=== PATIENT | male | born 1970 | race Caucasian/White ===

== ENCOUNTER → 2018-07-14 09:22 | Outpatient (CLI) | payer OTHER, SELFPAY ==
--- NOTE | 2018-07-14 09:27 | US_ITS ---
US abdomen limited History:Right upper quadrant pain Ordering Physician:Yu Araiza Patient Age: 48 years Comparison:None Findings: Pancreas:Unremarkable. No obvious mass or abnormal fluid collection. No ductal dilatation Liver:There is diffuse increased echogenicity of the liver with poor through transmission of sound consistent with fatty liver. Right Kidney:Unremarkable. Normal size and echogenicity. No hydronephrosis Gallbladder:No gallstones, gallbladder wall thickening, pericholecystic fluid, or biliary dilatation. Impression: 1. Fatty liver. 2. Otherwise negative right upper quadrant ultrasound
== END ==
PROVIDERS: PCP Nurse Practitioner Family; Visit Provider Nurse Practitioner Family
DX: R10.11 Right upper quadrant pain (principal)
CPT/HCPCS: 76705

== ENCOUNTER → 2018-10-15 09:53 | Outpatient (CLI) | payer OTHER, SELFPAY ==
--- NOTE | 2018-10-15 09:59 | NM_ITS ---
Hepatobiliary HEPATOBILIARY SCAN WITH CCK: HISTORY: Right upper quadrant pain and nausea Following 8.19 mCi millicuries Tc Choletec, images of the right upper quadrant were obtained. There is prompt uptake of radionuclide by the liver which is grossly unremarkable. Small bowel is visualized. At 20 minutes This initial pre-CCK portion of the study is normal. The gallbladder was allowed to fill out to 50 to 60 minutes which point 2.6 MCG micrograms CCK was administered by way infusion pump in the typical fashion over 30 minutes.. This results in 78% percent fraction (normal greater than 50%; borderline 35-50%). Visual inspection supports normal/robust contraction of gallbladder following CCK as well . Patient mention no pain with CCK administration. IMPRESSION: Normal functioning gallbladder . 78% ejection fraction following CCK. No pain reported
== END ==
PROVIDERS: PCP Nurse Practitioner; Visit Provider Nurse Practitioner
DX: R10.9 Unspecified abdominal pain (principal)
CPT/HCPCS: 78227; A9537; J2805

== ENCOUNTER → 2019-12-21 10:32 | Outpatient (CLI) | payer OTHER, SELFPAY ==
--- NOTE | 2019-12-21 10:42 | XR_ITS ---
PROCEDURE: XR SHOULDER RT MIN 2V CLINICAL INDICATION: RT SHOULDER PAIN COMPARISON: No exams were available for comparison FINDINGS: No fracture or dislocation. No lytic or blastic change. There is normal mineralization. The joint spaces are well-preserved. No significant degenerative/arthritic changes. No erosive changes evident. Other findings:None. IMPRESSION: No acute findings. Dictated by: Isaiah Delacruz MD 12/21/2019 14:19 Electronically signed by Isaiah Delacruz MD in [place] 12/21/2019 14:19
--- NOTE | 2019-12-21 10:42 | XR_ITS ---
PROCEDURE: XR CERVICAL SPINE 4V CLINICAL INDICATION: NUMBNESS OF UPPER EXTREMITY Right hand numbness and shoulder pain COMPARISON: No exams were available for comparison FINDINGS: There is normal alignment. There is some decrease in the disc space at C3-C4 C4-C5 C5-C6 and C6-C7. There is 2 mm anterolisthesis of C4 on C5. No acute fracture or dislocation. No lytic or blastic change. IMPRESSION: Mild cervical spondylosis, no acute finding Dictated by: Isaiah Delacruz MD 12/21/2019 14:21 Electronically signed by Isaiah Delacruz MD in [place] 12/21/2019 14:21
== END ==
PROVIDERS: PCP Nurse Practitioner Family; Visit Provider Nurse Practitioner Family
DX: M25.511 Pain in right shoulder (principal); R20.0 Anesthesia of skin
CPT/HCPCS: 72050; 73030

== ENCOUNTER → 2020-04-27 09:50 | Outpatient (CLI) | payer OTHER, SELFPAY ==
[2020-04-27 13:00] LABS: Coronavirus 19 IgG Antibody Negative (Negative); Coronavirus 19 IgM Antibody Negative (Negative)
== END ==
PROVIDERS: Internal Medicine Gastroenterology; Visit Provider Nurse Practitioner Family
DX: Z03.818 Encounter for observation for suspected exposure to other biological agents ruled out (principal)
CPT/HCPCS: 36415; 86328

== ENCOUNTER 2020-04-28 07:55 | Day surgery (SDC) | payer OTHER, SELFPAY ==
[2020-04-21 09:53] VITALS: BMI 46.6
[2020-04-28 08:15] VITALS: BP 148/90; PULSE 90; RESP 18; TEMP 36.2; O2SAT 96
[2020-04-28 09:04] VITALS: O2SAT 97
--- NOTE | 2020-04-28 09:15 | HMH.ANESCL ---
[facility] Anesthesia Checklist - Structural Data Admitted From: Home Planned Operative Procedure/s: Colonoscopy Consent for Planned Operative Procedure(s) Verified: Yes Verified Documents: Surgical Consent, History and Physical - Chart Verification Results Verified: None - Additional verifications Anesthesia Reactions: No - Airway Assessment C-Spine Mobility Assessed: Yes (MP 3, thick neck, large tongue) TMJ Mobility Assessed: Yes Dentition: Good Dentition - Neurological Assessment Level of Consciousness: Awake, Alert, Appropriate, Follows Commands Hx Seizures: Yes Numbness or tingling in extremities: No - Anesthesia Plan Anesthesia Risk discussed: Yes Anesthesia Plan: Verified ASA Class: III Anesthesia Type: MAC [facility] History I have reviewed the patient's past medical history: Yes Medical History: Reports:: Gastroesophageal Reflux Disease(GERD) Denies:: Cancer, Diabetes Mellitus Type 1, Diabetes Mellitus Type 2, Internal Pacemaker, MRSA, Seizures *Have you ever received a pneumonia vaccine?: No *Have you received a flu vaccine this season?: No Comment:: Obesity, IBS, gout Anesthesia experience/problems:: No prior complications Other Surgeries: Yes: Hernia Repair. No: Pacemaker Amputation: No Fractures: No - *Social History Last grade of school completed: High school graduate Smoking Status: Never smoker Alcohol Intake: never Substance Use Type: denies use *Occupational Status:: employed Housing: house Household Members: spouse *Travel in the last 8 weeks: None Family Hx:: Other (NA)
--- NOTE | 2020-04-28 09:20 | HMH.PROC ---
[facility] Procedure Note Procedure Note:: Colonoscopy Procedure Report: Colonoscopy with cold biopsies Endoscopist: Duke Cid II, MD Referring physician: HEYDI Logan Date of Procedure: April 28, 2020 Equipment: Olympus 180 variable stiffness pediatric colonoscope Sedation: MAC sedation Indication: Mr. Reid is a 49-year-old gentleman who is here for screening colonoscopy. He reports no abdominal pain, weight loss, change in his bowel habits or rectal bleeding. He does state that his paternal grandfather had colon cancer at the age of 82. The patient was having some chronic bloating, diarrhea and right upper quadrant abdominal discomfort with certain foods (pizza dough, lettuce and tomato). He has changed his diet and improved. He did have an ultrasound of the abdomen that showed no gallstones but he does have steatosis/fatty liver. Procedure: Prior to the procedure, a history and physical exam was performed, and patient's medications and allergies were reviewed. The risks, benefits and alternatives of the sedation and procedure were discussed with the patient. All questions were answered and informed consent was obtained. The patient was brought to the procedure room. Patient identification and proposed procedure were verified by the physician and the nurse. The patient was placed in a left lateral decubitus position and the scope was passed under direct vision. Throughout the procedure, the patient's blood pressure, pulse, and oxygen saturations were monitored continuously. The colonoscopy was accomplished without difficulty. The patient tolerated the procedure well. Findings: On digital rectal examination there was normal rectal tone. There were no external hemorrhoids. The colonoscope was introduced through the anal canal to the rectum and advanced to the cecum. The ileocecal valve and appendiceal orifice were identified. The scope was advanced a short distance into the ileum. There were patchy mucosal erosions within the ileum so biopsies were obtained. This was very mild. There was also erosion at the ileocecal valve. The findings were most consistent with NSAID enteropathy. The scope was then withdrawn into the colon. The cecum, ascending and transverse colon and mucosa were grossly normal. There were very mildly scattered diverticuli throughout the descending and sigmoid colon (LEFT colon). The rectum itself was normal. Upon retroflexion within the rectum there were grade 1-2 internal hemorrhoids. The preparation was excellent throughout with [place] Preparation Score of 9. The cecal time was 12 minutes. Impression: 1. Mild ileitis/enteritis/enteropathy (probably secondary to NSAIDs) 2. Mild left-sided diverticulosis 3. Grade 1-2 internal hemorrhoids Plan: I will follow-up the biopsies. I would encourage bulk fiber supplementation on a maintenance basis. We will discuss dietary measures to follow. The patient will not require screening/surveillance colonoscopy again for 10 years by ACS guidelines.
[2020-04-28 09:22] VITALS: BP 122/76; PULSE 78; RESP 18; TEMP 36.6; O2SAT 94
[2020-04-28 09:32] VITALS: BP 162/62; PULSE 79; RESP 18; O2SAT 89
[2020-04-28 09:44] VITALS: PULSE 72; RESP 18; O2SAT 92
[2020-04-28 10:20] VITALS: BP 125/65; PULSE 71; RESP 18; O2SAT 94
== END 2020-04-28 10:20 | disposition home or self-care (01) ==
LOC: OUTP 07:57
PROVIDERS: PCP Nurse Practitioner Family; Visit Provider Internal Medicine Gastroenterology
PROC: 0DJD8ZZ Inspection of Lower Intestinal Tract, Via Natural or Artificial Opening Endoscopic (ICD-10-PCS; CPT 45378; principal; 2020-04-28 09:00)
DX: Z12.11 Encounter for screening for malignant neoplasm of colon (principal); K52.89 Other specified noninfective gastroenteritis and colitis; K57.30 Diverticulosis of large intestine without perforation or abscess without bleeding; K64.0 First degree hemorrhoids; K21.9 Gastro-esophageal reflux disease without esophagitis; M10.9 Gout, unspecified; E66.9 Obesity, unspecified; Z68.42 Body mass index [BMI] 45.0-49.9, adult; Z88.8 Allergy status to other drugs, medicaments and biological substances; Z79.899 Other long term (current) drug therapy
CPT/HCPCS: 45380

== ENCOUNTER → 2020-06-22 11:56 | Outpatient (CLI) | payer OTHER, SELFPAY ==
--- NOTE | 2020-06-22 12:29 | XR_ITS ---
PROCEDURE: XR CHEST PORTABLE CLINICAL HISTORY: COVID TEST COMPARISON: No exams were available for comparison FINDINGS: The cardiomediastinal silhouette and pulmonary vascularity are within normal limits. The lungs are clear without infiltrates, suspicious nodules, or pleural effusions. No acute bony abnormalities. IMPRESSION: No acute findings. Dictated by: Dr. William Carrillo MD 06/23/2020 11:26 Dr. William Carrillo MD in [place] 06/23/2020 11:26
[2020-06-22 15:02] LABS: Basophils # 0.1 K/mm3 (0-0.2); Basophils % 0.9 % (0.1-2.0); Eosinophils # 0.3 K/mm3 (0.0-0.4); Eosinophils % 2.7 % (0.1-12.0); Hematocrit 52.5 % (42.0-52.0); Lymphocytes # 4.6 K/mm3 (0.7-4.5); Lymphocytes % 44.3 % (10-50); Mean Corpuscular HGB Conc 34.3 g/dL (31.8-35.4); Mean Corpuscular Hemoglobin 29.8 pg (27.0-31.2); Mean Corpuscular Volume 86.9 fl (80-94); Mean Platelet Volume 7.9 fl (7.4-10.4); Monocytes # 0.7 K/mm3 (0.1-1.0); Monocytes % 6.7 % (1.7-9.3); Neutrophils # 4.7 K/mm3 (1.8-7.8); Neutrophils % 45.5 % (37.0-80.0); Platelet Count 260 K/mm3 (142-424); Red Blood Count 6.04 M/mm3 (4.60-6.20); Red Cell Distribution Width 13.6 % (11.5-17.5); White Blood Count 10.3 K/mm3 (4.8-10.8)
[2020-06-22 15:47] LABS: Chloride 102 mmol/L (98-107); Sodium 142 mmol/L (136-145)
[2020-06-22 15:48] LABS: Potassium 4.6 mmoL/L (3.5-5.1)
[2020-06-22 15:50] LABS: Alanine Aminotransferase 57 U/L (12-78); Albumin Level 4.9 g/dl (3.5-5.0); Albumin/Globulin Ratio 1.5 (1.1-1.8); Alkaline Phosphatase 62 U/L (38-126); Anion Gap 16.6 mEq/L (5-15); Aspartate Amino Transferase 49 U/L (17-59); Bilirubin,Total 0.5 mg/dl (0.2-1.3); Blood Urea Nitrogen 20 mg/dl (9-20); Carbon Dioxide 28 mmol/L (22.0-30.0); Estimated Glomerular Filt Rate 64 ml/min (>60); GFR (African American) 78 ML/MIN (>60); Globulin 3.3 g/dL (1.3-3.2); Total Protein,Serum 8.2 g/dl (6.3-8.2)
[2020-06-22 15:51] LABS: Calcium 10.4 mg/dl (8.4-10.2); Glucose 87 mg/dl (74-100)
[2020-06-22 16:19] LABS: Thyroid Stimulating Hormone 2.95 uIU/mL (0.465-4.68)
[2020-06-23 15:38] LABS: Covid-19 Nasal PCR Sendout Lex Not Detected
== END ==
PROVIDERS: PCP Nurse Practitioner Family; Visit Provider Nurse Practitioner Family
DX: Z03.818 Encounter for observation for suspected exposure to other biological agents ruled out (principal)
CPT/HCPCS: 36415; 71045; 80053; 84443; 85025; U0004

== ENCOUNTER → 2020-09-13 09:44 | Outpatient (CLI) | payer OTHER, SELFPAY ==
--- NOTE | 2020-09-13 09:57 | XR_ITS ---
PROCEDURE: XR CHEST 2V CLINICAL HISTORY: SOB Shortness of air COMPARISON: CR XR CHEST PORTABLE from 06/22/2020 FINDINGS: The cardiomediastinal silhouette and pulmonary vascularity are within normal limits. Nodular opacity overlies the left mid lower lung zone and may be due to a granuloma. Stability may be confirmed with follow-up. Lungs are otherwise clear. No acute bony abnormalities. IMPRESSION: As above, no acute finding. Possible granuloma in the left midlung Dictated by: Isaiah Delacruz MD 09/13/2020 15:49 Isaiah Delacruz MD in [place] 09/13/2020 15:49
== END ==
PROVIDERS: PCP Nurse Practitioner Family; Visit Provider Nurse Practitioner Family
DX: R06.02 Shortness of breath (principal)
CPT/HCPCS: 71046

== ENCOUNTER 2020-09-25 15:49 | Emergency (ER) | payer OTHER, SELFPAY ==
--- NOTE | 2020-09-25 15:46 | ECG_ITS ---
APPROVED REPORT Exam: Resting ECG HR:83 bpm ECG Measurements Heart Rate 83 AXES NJ 142 P 38 QRSd 86 QRS -20 QT 362 T 56 QTc 425 Conclusion Normal sinus rhythm Possible Left atrial enlargement Borderline ECG Electronically signed by : Alberto John, 09/26/2020 07:54:35
[2020-09-25 15:50] VITALS: BP 148/94; PULSE 84; RESP 20; TEMP 36.8; O2SAT 96; BMI 46.5
--- NOTE | 2020-09-25 15:51 | XR_ITS ---
PROCEDURE: XR CHEST PORTABLE CLINICAL HISTORY: SOA COMPARISON: CR XR CHEST PORTABLE from 06/22/2020 CR XR CHEST 2V from 09/13/2020 FINDINGS: The cardiomediastinal silhouette and pulmonary vascularity are within normal limits. The lungs are clear without infiltrates, suspicious nodules, or pleural effusions. No acute bony abnormalities. IMPRESSION: No acute findings. Dictated by: Dr. William Carrillo MD 09/26/2020 08:24 Dr. William Carrillo MD in [place] 09/26/2020 08:24
--- NOTE | 2020-09-25 15:56 | HMH.EDCP ---
ED Disposition Clinical Impression: Chest pain Qualifiers: Chest pain type: unspecified Qualified Code(s): R07.9 - Chest pain, unspecified Disposition: Home, Self-Care Condition on Discharge: Good Instructions: DI for Atypical Chest Pain Referrals: PCP,No [Non-Staff] - 3 days - Critical Care Critical Care Time: No Attestation: On , the high probability of a clinically significant, sudden or life threatening deterioration of the following system(s) required my full and direct attention, intervention and personal management. The time I documented below is in addition to time spent performing reported procedures but includes the following listed in this critical care notation. Medical Decision Making - Medical Records Medical records reviewed: Yes: I reviewed the patient's medical records. - Alberto Inquiry Pt receiving controlled substance: No Vital Signs: 09/25/20 15:50 09/25/20 16:20 09/25/20 16:30 Temperature 98.2 F Temperature Source Oral Pulse Rate [Left Radial] 84 72 79 Respiratory Rate 20 20 20 Blood Pressure [Right Arm] 148/94 H 144/83 H Blood Pressure Mean [Right Arm] 112 103 Blood Pressure Source [Right Arm] Automatic Cuff Blood Pressure Position [Right Arm] Sitting 02 Sat by Pulse Oximetry 96 94 L 93 L Oxygen Delivery Method Room Air Room Air Room Air 09/25/20 17:00 09/25/20 17:30 Temperature Temperature Source Pulse Rate [Left Radial] 77 72 Respiratory Rate 20 19 Blood Pressure [Right Arm] 144/77 H Blood Pressure Mean [Right Arm] 99 Blood Pressure Source [Right Arm] Blood Pressure Position [Right Arm] 02 Sat by Pulse Oximetry 93 L 94 L Oxygen Delivery Method Room Air Room Air - Lab Data Lab results reviewed: Yes: I reviewed the patient's lab results. Lab Results 09/25/20 15:55: WBC 8.1, RBC 5.39, Hgb 15.8, Hct 45.9, MCV 85.2, MCH 29.4, MCHC 34.5, RDW 13.3, Plt Count 245, MPV 7.5, Neut % (Auto) 39.0, Lymph % (Auto) 49.4, [place] % (Auto) 6.3, Eos % (Auto) 4.4, Baso % (Auto) 1.0, Neut # (Auto) 3.2, Lymph # (Auto) 4.0, [place] # (Auto) 0.5, Eos # (Auto) 0.4, Baso # (Auto) 0.1 09/25/20 15:55: Sodium 139, Potassium 3.6, Chloride 107, Carbon Dioxide 25, Anion Gap 10.6, BUN 13, Creatinine 1.20, Estimated Creat Clear 70, Estimated GFR 64, Est GFR ( Amer) 78, Glucose 180 H, Calcium 10.0, Troponin I < 0.01 Result diagrams: 09/25/20 15:55 09/25/20 15:55 Orders (Tests/Meds): ED MEDICATIONS Discontinued Medications Generic Name Dose Route Start Last Admin Trade Name Freq PRN Reason Stop Dose Admin Aspirin 324 mg 09/25/20 15:52 09/25/20 15:54 Aspirin 81mg Chewable Tablet PO 09/25/20 15:53 324 mg ONCE ONE Administration ORDERS Category Date Time Status XR chest portable Stat Exams 09/25/20 15:51 Taken Troponin I Q3H Lab 09/25/20 19:00 Ordered Troponin I Q3H Lab 09/25/20 22:00 Ordered - Radiology Data #1 Image(s): Chest Image Reviewed: Yes I reviewed the patient's radiology image Preliminary Findings: Normal/NAD - REBECCA Score for Non-Stemi Age of Patient: 40-49 years old Heart Rate: 90-109 bpm Systolic Blood Pressure: 140-159 mmHg Serum Creatinine: 1.20-1.59 mg/dl CHF [place] Class: I-No CHF Other Risk Factors: None Non-Stemi Risk Score: 74 Medical Decision Narrative: 50yo M evaluated for chest pain. Differential diagnosis includes but not limited to: ACS/MT, PE, pneumonia, musculoskeletal injury, anxiety, GERD, cholecystitis. Patient is in no acute distress on initial evaluation. His EKG is unremarkable as above. X-rays reviewed by me and no acute findings are appreciated. Patient's troponin is 0.01. Given that his chest pain is been waxing and waning throughout the day, would anticipate a bump in his troponin by this time. Patient has close follow-up arranged. It is reasonable to allow the patient to return home at this time. This plan was discussed with the patient and his at bedside. They agree with the plan.
[2020-09-25 16:20] VITALS: BP 144/83; PULSE 72; RESP 20; O2SAT 94
[2020-09-25 16:23] LABS: Chloride 107 mmol/L (98-107); Sodium 139 mmol/L (136-145)
[2020-09-25 16:24] LABS: Potassium 3.6 mmoL/L (3.5-5.1)
[2020-09-25 16:26] LABS: Blood Urea Nitrogen 13 mg/dl (9-20); Creatinine Clearance Estimated 70 mL/min (50-200); Estimated Glomerular Filt Rate 64 ml/min (>60); GFR (African American) 78 ML/MIN (>60)
[2020-09-25 16:27] LABS: Anion Gap 10.6 mEq/L (5-15); Basophils # 0.1 K/mm3 (0-0.2); Carbon Dioxide 25 mmol/L (22.0-30.0); Eosinophils # 0.4 K/mm3 (0.0-0.4); Eosinophils % 4.4 % (0.1-12.0); Glucose 180 mg/dl (74-100); Hematocrit 45.9 % (42.0-52.0); Hemoglobin 15.8 g/dL (14.1-18.0); Lymphocytes % 49.4 % (10-50); Mean Corpuscular HGB Conc 34.5 g/dL (31.8-35.4); Mean Corpuscular Hemoglobin 29.4 pg (27.0-31.2); Mean Corpuscular Volume 85.2 fl (80-94); Mean Platelet Volume 7.5 fl (7.4-10.4); Monocytes # 0.5 K/mm3 (0.1-1.0); Monocytes % 6.3 % (1.7-9.3); Neutrophils # 3.2 K/mm3 (1.8-7.8); Platelet Count 245 K/mm3 (142-424); Red Blood Count 5.39 M/mm3 (4.60-6.20); Red Cell Distribution Width 13.3 % (11.5-17.5); White Blood Count 8.1 K/mm3 (4.8-10.8)
[2020-09-25 16:30] VITALS: PULSE 79; RESP 20; O2SAT 93
[2020-09-25 16:44] LABS: Troponin I < 0.01 ng/ml (0.00-0.034)
[2020-09-25 17:00] VITALS: BP 144/77; PULSE 77; RESP 20; O2SAT 93
[2020-09-25 17:30] VITALS: PULSE 72; RESP 19; O2SAT 94
[2020-09-25 17:55] VITALS: BP 138/79; PULSE 80; RESP 19; TEMP 36.7; O2SAT 95
== END 2020-09-25 18:00 | disposition home or self-care (01) ==
PROVIDERS: Emergency Provider Family Medicine; PCP Nurse Practitioner Family
DX: R07.9 Chest pain, unspecified (principal); R06.02 Shortness of breath; K21.9 Gastro-esophageal reflux disease without esophagitis; Z88.8 Allergy status to other drugs, medicaments and biological substances; E66.01 Morbid (severe) obesity due to excess calories; Z68.42 Body mass index [BMI] 45.0-49.9, adult; Z79.899 Other long term (current) drug therapy
CPT/HCPCS: 71045; 80048; 84484; 85025; 93005; 99283

== ENCOUNTER → 2020-10-11 06:43 | Outpatient (CLI) | payer OTHER, SELFPAY ==
--- NOTE | 2020-10-11 06:44 | CA_ITS ---
APPROVED REPORT Exam: Pharmacologic Technologist: Ninfa Torrez Ht: 5 ft 7 in Wt: 297 lbs BSA: 2.39 m2 HR: 71 bpm BP: 120/81 mmHg Indications: Shortness of Air, chest pain Medical History Medications: Allopurinol,,,,, FeNOfibrate,,,,, LoraTidine,,,,, Esomeprazole,,,,, Ibuprofen-Phenylephrine,,,,, Vitamin W14-Eivni Acid,,,,, Stress Test Details Test: LEXISCAN HR Resting HR: 76 bpm Max Heart Rate (APMHR): 171 bpm Max HR Achieved: 108 bpm Target HR (85% APMHR): 145 bpm % of APMHR: 63 Recovery HR: 79 bpm BP Resting BP: 120.0/81.0 mmHg Max BP: 156.0/92.0 mmHg Recovery BP: 122.0/73.0 mmHg ECG Resting ECG: Normal sinus rhythm, slow R wave progression Clinical Exercise duration: 04:03 min Highest Stage Achieved: Exercise capacity: 1.0 METs Stress ECG Conclusion Symptoms: Mild chest heaviness, mild shortness of air and stomach discomfort. Arrhythmias/Ectopy: None ST-T Changes: No significant changes. Conclusion: Unremarkable Lexiscan stress. Myoview images reported separately. Electronically signed by : Luis Franco, 10/12/2020 15:13:33
--- NOTE | 2020-10-11 06:44 | NM_ITS ---
APPROVED REPORT Exam: Nuclear Stress Test Indication: SOB, Fatigue, HTN, Family history Patient Location: Outpatient Stress Tech: Ninfa Torrez NM Tech:Rhonda Denny ARRT, RT (R)(N) Ht: 5 ft 7 in Wt: 297 lbs HR: 71 bpm BP: 120/81 mmHg BSA: 2.39 m2 BMI: 46.5 History: SOB, Fatigue, HTN, Family history Procedure: Patient received a 0.4 mg of intravenous Lexiscan, resting heart rate 71 bpm, resting blood pressure 120/81 mmHg, with Lexiscan maximum heart rate achived was 106 bpm which is % of the maximum predicted heart rate and blood pressure was 139/92 mmHg. Cardiac Stress and Resting SPECT Images: Cardiac Stress and Resting SPECT images were obtained using technetium 99m Myoview 32.8 mCi stress and 10.73 mCi at rest. EF 60 % Normal Conclusion: EF 60 % Normal Electronically signed by : Isaiah Delacruz MD 10/16/2020 10:25:07
--- NOTE | 2020-10-11 08:13 | HMH.ITSHM ---
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 []FENOFIBRATE LOSARTAN ALLOPURINOL METOPROLOL
== END ==
PROVIDERS: PCP Nurse Practitioner Family; Visit Provider Physician Assistant
DX: R07.9 Chest pain, unspecified (principal); R06.00 Dyspnea, unspecified; E66.01 Morbid (severe) obesity due to excess calories; I99.8 Other disorder of circulatory system; K21.9 Gastro-esophageal reflux disease without esophagitis; R20.0 Anesthesia of skin; R94.31 Abnormal electrocardiogram [ECG] [EKG]; Z68.42 Body mass index [BMI] 45.0-49.9, adult; Z82.49 Family history of ischemic heart disease and other diseases of the circulatory system
CPT/HCPCS: 78452; 93017; 93306; A9502; J2785

== ENCOUNTER → 2020-10-26 14:01 | Outpatient (CLI) | payer OTHER, SELFPAY ==
--- NOTE | 2020-10-26 14:30 | PC.NURSE ---
PFT completed without complications. Albuterol 0.083% given per protocol via HHN, Pt tolerated tx well.
== END ==
PROVIDERS: PCP Nurse Practitioner Family; Visit Provider Physician Assistant
DX: R06.00 Dyspnea, unspecified (principal); R07.9 Chest pain, unspecified
CPT/HCPCS: 94060; 94726; 94729

== ENCOUNTER → 2020-10-30 10:31 | Outpatient (CLI) | payer OTHER, SELFPAY ==
[2020-10-30 11:39] LABS: Chloride 105 mmol/L (98-107); Sodium 141 mmol/L (136-145)
[2020-10-30 11:42] LABS: Blood Urea Nitrogen 14 mg/dl (9-20); Calcium 10.1 mg/dl (8.4-10.2); Carbon Dioxide 28 mmol/L (22.0-30.0); Estimated Glomerular Filt Rate 71 ml/min (>60); GFR (African American) 86 ML/MIN (>60); Glucose 112 mg/dl (74-100)
== END ==
PROVIDERS: Visit Provider Physician Assistant
DX: K21.9 Gastro-esophageal reflux disease without esophagitis (principal)
CPT/HCPCS: 36415; 80048

== ENCOUNTER → 2020-11-09 14:12 | Outpatient (CLI) | payer OTHER, SELFPAY ==
--- NOTE | 2020-11-09 14:13 | CA_ITS ---
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 134 Axillary 123 Brachial 96 83 98 Radial 62 Ulnar 66 Left Prox Mid Distal Subcl. 163 Axillary 147 Brachial 104 103 89 Radial 86 Ulnar 93 Findings Spectral Doppler Analysis reveals right upper extremity arterial stenosis in the range of less than25%. Spectral Doppler Analysis reveals left upper extremity arterial stenosis in the range of less than25%. Spectral Doppler Analysis reveals bilateral upper extremity arterial stenosis in the range of less than25%. Conclusion Spectral Doppler Analysis reveals right upper extremity arterial stenosis in the range of less than25%. Spectral Doppler Analysis reveals left upper extremity arterial stenosis in the range of less than25%. Spectral Doppler Analysis reveals bilateral upper extremity arterial stenosis in the range of less than25%. Electronically signed by : Dayan Ramirez, 11/10/2020 13:10:04
== END ==
PROVIDERS: PCP Nurse Practitioner Family; Visit Provider Physician Assistant
DX: R07.9 Chest pain, unspecified (principal); R06.00 Dyspnea, unspecified; R20.0 Anesthesia of skin; I99.8 Other disorder of circulatory system; R94.31 Abnormal electrocardiogram [ECG] [EKG]; K21.9 Gastro-esophageal reflux disease without esophagitis; E66.01 Morbid (severe) obesity due to excess calories; Z68.42 Body mass index [BMI] 45.0-49.9, adult; Z82.49 Family history of ischemic heart disease and other diseases of the circulatory system
CPT/HCPCS: 93930

== ENCOUNTER → 2020-11-28 16:39 | Outpatient (CLI) | payer OTHER, SELFPAY ==
[2020-11-28 18:09] LABS: Basophils # 0.1 K/mm3 (0-0.2); Basophils % 0.8 % (0.1-2.0); Eosinophils # 0.3 K/mm3 (0.0-0.4); Eosinophils % 2.7 % (0.1-12.0); Hematocrit 44.8 % (42.0-52.0); Hemoglobin 15.3 g/dL (14.1-18.0); Lymphocytes # 4.7 K/mm3 (0.7-4.5); Mean Corpuscular HGB Conc 34.2 g/dL (31.8-35.4); Mean Corpuscular Volume 84.9 fl (80-94); Monocytes # 0.8 K/mm3 (0.1-1.0); Monocytes % 8.1 % (1.7-9.3); Neutrophils # 4.1 K/mm3 (1.8-7.8); Neutrophils % 41.4 % (37.0-80.0); Platelet Count 286 K/mm3 (142-424); Red Blood Count 5.28 M/mm3 (4.60-6.20); Red Cell Distribution Width 13.3 % (11.5-17.5)
[2020-11-28 19:20] LABS: Coronavirus 19 IgG Antibody Negative (Negative); Coronavirus 19 IgM Antibody Negative (Negative)
[2020-12-03 15:18] LABS: D001-IgE D pteronyssinus <0.10 kU/L (Class 0); D002-IgE D farinae <0.10 kU/L (Class 0); E001-IgE Cat Dander <0.10 kU/L (Class 0); E005-IgE Dog Dander <0.10 kU/L (Class 0); G002-IgE Bermuda Grass <0.10 kU/L (Class 0); G006-IgE Timothy Grass <0.10 kU/L (Class 0); I006-IgE Cockroach, German <0.10 kU/L (Class 0); Immunoglobulin E, Total 12 IU/mL (6-495); M001-IgE Penicillium chrysogen <0.10 kU/L (Class 0); M002-IgE Cladosporium herbarum <0.10 kU/L (Class 0); M003-IgE Aspergillus fumigatus <0.10 kU/L (Class 0); M006-IgE Alternaria alternata <0.10 kU/L (Class 0); T001-IgE Maple/Box Elder <0.10 kU/L (Class 0); T003-IgE Common Silver Birch <0.10 kU/L (Class 0); T006-IgE Cedar, Mountain <0.10 kU/L (Class 0); T007-IgE Oak, White <0.10 kU/L (Class 0); T008-IgE Elm, American <0.10 kU/L (Class 0); T010-IgE Walnut <0.10 kU/L (Class 0); T011-IgE Maple Leaf Sycamore <0.10 kU/L (Class 0); T014-IgE Cottonwood <0.10 kU/L (Class 0); T015-IgE Ash, White <0.10 kU/L (Class 0); T022-IgE Pecan, Hickory <0.10 kU/L (Class 0); T070-IgE White Mulberry <0.10 kU/L (Class 0); W001-IgE Ragweed, Short <0.10 kU/L (Class 0); W011-IgE Thistle, Russian <0.10 kU/L (Class 0); W014-IgE Pigweed, Common <0.10 kU/L (Class 0); W018-IgE Sheep Sorrel <0.10 kU/L (Class 0)
[2020-12-05 04:20] LABS: E072-IgE Mouse Urine <0.10 kU/L (Class 0)
== END ==
PROVIDERS: Visit Provider Internal Medicine Pulmonary Disease
DX: J45.909 Unspecified asthma, uncomplicated (principal); Z86.16 Personal history of COVID-19
CPT/HCPCS: 36415; 82785; 85025; 86003; 86328

== ENCOUNTER → 2021-06-26 15:48 | Outpatient (CLI) | payer OTHER, SELFPAY | PROVIDERS: PCP Nurse Practitioner Family; Visit Provider Nurse Practitioner | DX: U07.1 COVID-19 (principal) | CPT/HCPCS: C9803; U0003; U0005 ==

== ENCOUNTER 2021-06-29 10:04 | Inpatient (IN) | payer OTHER, SELFPAY ==
[2021-06-29] VITALS (18 sets, daily range): BP systolic 93–175; BP diastolic 55–106; PULSE 85–123; RESP 18–58; TEMP 36.6–37.4; O2SAT 85–100; BMI 43.8; BMI 43.3
--- NOTE | 2021-06-29 10:27 | XR_ITS ---
PROCEDURE: XR CHEST PORTABLE CLINICAL HISTORY: COVID positive, SOA COMPARISON: CR XR CHEST PORTABLE from 06/22/2020 CR XR CHEST 2V from 09/13/2020 CR XR CHEST PORTABLE from 09/25/2020 FINDINGS: The cardiomediastinal silhouette and pulmonary vascularity are within normal limits. Ground-glass infiltrate in the right upper lobe and left upper and left lower lobe consistent with Covid19 pneumonia. Also suspect patchy infiltrate in the right lower lobe. No acute bony abnormalities. IMPRESSION: Multifocal pneumonia consistent with Covid19 pneumonia Dictated by: Isaiah Delacruz MD 06/29/2021 12:16 Isaiah Delacruz MD in [place] 06/29/2021 12:16
[2021-06-29 11:04] LABS: Basophils # 0.1 K/mm3 (0-0.2); Basophils % 0.6 % (0.1-2.0); Hemoglobin 16.8 g/dL (14.1-18.0); Lymphocytes # 1.6 K/mm3 (0.7-4.5); Lymphocytes % 13.6 % (10-50); Mean Corpuscular HGB Conc 34.4 g/dL (31.8-35.4); Mean Corpuscular Hemoglobin 30.1 pg (27.0-31.2); Mean Corpuscular Volume 87.5 fl (80-94); Mean Platelet Volume 8.8 fl (7.4-10.4); Monocytes # 0.7 K/mm3 (0.1-1.0); Monocytes % 5.5 % (1.7-9.3); Neutrophils # 9.6 K/mm3 (1.8-7.8); Neutrophils % 80.2 % (37.0-80.0); Platelet Count 249 K/mm3 (142-424); Red Blood Count 5.59 M/mm3 (4.60-6.20); Red Cell Distribution Width 13.9 % (11.5-17.5); White Blood Count 11.9 K/mm3 (4.8-10.8)
[2021-06-29 11:09] LABS: Alanine Aminotransferase 93 U/L (12-78); Albumin Level 4.6 g/dl (3.5-5.0); Albumin/Globulin Ratio 1.2 (1.1-1.8); Alkaline Phosphatase 150 U/L (38-126); Aspartate Amino Transferase 113 U/L (17-59); Bilirubin,Total 0.8 mg/dl (0.2-1.3); Blood Urea Nitrogen 31 mg/dl (9-20); Calcium 10.9 mg/dl (8.4-10.2); Carbon Dioxide 11 mmol/L (22.0-30.0); Chloride 92 mmol/L (98-107); Creatinine Clearance Estimated 69 mL/min (50-200); Estimated Glomerular Filt Rate 64 ml/min (>60); GFR (African American) 78 ML/MIN (>60); Globulin 3.7 g/dL (1.3-3.2); Sodium 130 mmol/L (136-145); Total Protein,Serum 8.3 g/dl (6.3-8.2)
[2021-06-29 11:12] LABS: Glucose 622 mg/dl (74-100)
[2021-06-29 11:16] LABS: D-Dimer 0.67 ug/mL (0.0-0.5)
--- NOTE | 2021-06-29 11:21 | CT_ITS ---
PROCEDURE: CT ANGIO CHEST PE PROTOCOL CLINCIAL INDICATION: covid, hypoxia, elev d-dimer COMPARISON: CR XR CHEST PORTABLE from 06/29/2021 TECHNIQUE: IV Contrast: 70ML Isovue 370 Axial images obtained with sagittal and coronal reformats. All CT scans at the facility use one or more dose reduction, viz: automated exposure control, ma/kV adjustment per patient size (including targeted exams where dose is matched to indication, i.e. head), or iterative reconstruction technique. FINDINGS: HEART AND MEDIASTINAL STRUCTURES: No evidence of pulmonary embolus, aortic aneurysm, or aortic dissection. Motion artifact obscures fine detail of the peripheral pulmonary arteries LUNGS AND PLEURAL SPACES: Multifocal bilateral pneumonia in both upper and lower lobes. Motion artifact somewhat obscures fine detail. The pneumonia is most extensive in the left upper and left lower lobe with some sparing of the right middle lobe and right lower lobe anteriorly. No effusions. No evidence of pneumothorax. BONY STRUCTURES: No acute bony abnormalities apparent. UPPER ABDOMEN: Diffuse fatty liver ADDITIONAL FINDINGS: No other significant abnormalities. IMPRESSION: Multifocal bilateral pneumonia consistent with Covid19 pneumonia. No evidence of pulmonary embolus, aortic aneurysm, or aortic dissection. Dictated by: Isaiah Delacruz MD 06/29/2021 13:10 Isaiah Delacruz MD in [place] 06/29/2021 13:10
--- NOTE | 2021-06-29 11:22 | HMH.EDGENADL ---
ED Disposition Clinical Impression: Pneumonia due to COVID-19 virus, Diabetes mellitus, new onset Respiratory failure with hypoxia Qualifiers: Chronicity: acute Qualified Code(s): J96.01 - Acute respiratory failure with hypoxia DKA (diabetic ketoacidosis) Qualifiers: Diabetes mellitus type: other specified (including PARRIS) Diabetes mellitus complication detail: without coma Qualified Code(s): E13.10 - Other specified diabetes mellitus with ketoacidosis without coma Disposition: Admitted As Inpatient Condition on Discharge: Serious Referrals: Yu Araiza APRN [Primary Care Provider] - - Critical Care Critical Care Time: Yes Attestation: On 06/29/21, the high probability of a clinically significant, sudden or life threatening deterioration of the following system(s) required my full and direct attention, intervention and personal management. The time I documented below is in addition to time spent performing reported procedures but includes the following listed in this critical care notation. Total Critical Care Time: 45 Vital system(s) involved:: Metabolic Failure, Respiratory Failure My critical care processes included: Assessment & monitoring of V/S, Initial and Re-exams, Data Review/Interpretation, Coordinating Care, Medication Orders and management, Documentation Medical Decision Making - Medical Records Medical records reviewed: Yes: I reviewed the patient's medical records. MR Comment: Reviewed hospital visit record and outpatient prescriptions. The patient had a positive Covid test here on 06/26/2021 as an outpatient. He filled prescriptions for Zithromax and prednisone on 06/26/2021. - Alberto Inquiry Pt receiving controlled substance: No Vital Signs: 06/29/21 10:05 06/29/21 10:43 06/29/21 11:58 Temperature 98.8 F Temperature Source Oral Pulse Rate 118 H 119 H Pulse Rate [Right Radial] 116 H Respiratory Rate 24 20 48 H Blood Pressure 146/90 H 125/106 H Blood Pressure [Right Arm] 175/103 H Blood Pressure Mean 108 111 Blood Pressure Mean [Right Arm] 127 Blood Pressure Source [Right Arm] Automatic Cuff Blood Pressure Position [Right Arm] Sitting 02 Sat by Pulse Oximetry 85 L 89 L 91 L Oxygen Delivery Method Room Air Nasal Cannula Oxygen Flow Rate (LPM) 4 06/29/21 12:00 06/29/21 12:05 06/29/21 12:31 Temperature Temperature Source Pulse Rate 120 H 120 H Pulse Rate [Right Radial] Respiratory Rate 22 52 H 58 H Blood Pressure 125/106 H 138/84 Blood Pressure [Right Arm] Blood Pressure Mean 91 Blood Pressure Mean [Right Arm] Blood Pressure Source [Right Arm] Blood Pressure Position [Right Arm] 02 Sat by Pulse Oximetry 91 L 89 L 95 Oxygen Delivery Method Nasal Cannula Nasal Cannula Nasal Cannula Oxygen Flow Rate (LPM) 6 6 6 06/29/21 13:21 Temperature Temperature Source Pulse Rate 123 H Pulse Rate [Right Radial] Respiratory Rate 58 H Blood Pressure 111/76 Blood Pressure [Right Arm] Blood Pressure Mean 82 Blood Pressure Mean [Right Arm] Blood Pressure Source [Right Arm] Blood Pressure Position [Right Arm] 02 Sat by Pulse Oximetry 89 L Oxygen Delivery Method Nasal Cannula Oxygen Flow Rate (LPM) 6 - Lab Data Lab Results 06/29/21 10:27: WBC 11.9 H, RBC 5.59, Hgb 16.8, Hct 49.0, MCV 87.5, MCH 30.1, MCHC 34.4, RDW 13.9, Plt Count 249, MPV 8.8, Neut % (Auto) 80.2 H, Lymph % (Auto) 13.6, [place] % (Auto) 5.5, Eos % (Auto) 0.0 L, Baso % (Auto) 0.6, Neut # (Auto) 9.6 H, Lymph # (Auto) 1.6, [place] # (Auto) 0.7, Eos # (Auto) 0.0, Baso # (Auto) 0.1 06/29/21 10:42: Sodium 130 L, Potassium 5.0, Chloride 92 L, Carbon Dioxide 11 L, Anion Gap 32.0 H, BUN 31 H, Creatinine 1.20, Estimated Creat Clear 69, Estimated GFR 64, Est GFR ( Amer) 78, Glucose 622 H*, Calcium 10.9 H, Total Bilirubin 0.8, AST 113 H, ALT 93 H, Alkaline Phosphatase 150 H, Total Protein 8.3 H, Albumin 4.6, Globulin 3.7 H, Albumin/Globulin Ratio 1.2 06/29/21 10:42: D-Dimer 0.67 H
[2021-06-29 11:28] LABS: VBG Base Excess -15.8 mmol/L (-2.4-2.3); VBG HCO3 11.4 mmol/L (23-30); VBG Oxygen Saturation 91.4 % (50-70); VBG PCO2 26.2 mmol/L (35-51); VBG PH 7.26 mmol/L (7.31-7.41); VBG PO2 70.9 mmol/L (28-40); VBG Total CO2 12.2 mmol/L (23-27)
[2021-06-29 11:31] LABS: Acetone, Serum (Rapid) Moderate (None Detect)
[2021-06-29 11:36] LABS: Magnesium 2.3 mg/dl (1.6-2.3); Phosphorous 6.1 mg/dl (2.5-4.5)
[2021-06-29 11:47] LABS: Lactic Acid 2.7 mmol/L (0.7-2.1)
--- NOTE | 2021-06-29 12:37 | PC.NURSE ---
pt placed on mona mask at 50% 15L
[2021-06-29 13:28] LABS: POC Glucose,Bedside 408 (70-110)
[2021-06-29 14:25] LABS: POC Glucose,Bedside 334 (70-110)
--- NOTE | 2021-06-29 14:52 | PC.NURSE ---
Dr Mendoza speaking with dr Mena
[2021-06-29 15:29] LABS: POC Glucose,Bedside 286 (70-110)
[2021-06-29 15:34] LABS: Reflex Lactic Add Lactic Reflex
--- NOTE | 2021-06-29 16:43 | HMH.HP ---
*Admission Date: 06/29/21 *Chief complaint: COVID-19, malaise *History of present illness: 51-year-old male diagnosed with COVID-19 infection earlier in the week presented to the emergency department with worsening symptoms. Patient initially presented to the office on June 22 with URI symptoms including sore throat and was treated with an antibiotic. He returned to the office on June 26 with continued symptoms and no improvement. COVID-19 testing was performed which returned positive. Patient was given monoclonal antibody injections subcutaneously in the office on June 28. He presented to the emergency department on June 29 with worsening symptoms and shortness of breath. Patient was hypoxic on presentation and responded to high flow supplemental oxygen which improved O2 sats to the 90s. Patient was found to be significantly hyperglycemic. He has no personal history of diabetes but had been on steroids for the last week. In addition to his acute respiratory failure patient was in DKA with his new onset of diabetes. Patient has been admitted for respiratory support and treatment of COVID-19 pneumonia and new onset diabetes. Patient has been started on insulin drip. [facility] History I have reviewed the patient's past medical history: Yes Medical History: Reports:: Asthma, Gastroesophageal Reflux Disease(GERD), Hypertension Denies:: Cancer, Diabetes Mellitus Type 1, Diabetes Mellitus Type 2, Internal Pacemaker, MRSA, Seizures *Have you ever received a pneumonia vaccine?: Yes *Have you received a flu vaccine this season?: No Comment:: Hypertriglyceridemia, gout Other Surgeries: Yes: Hernia Repair. No: Pacemaker Amputation: No Fractures: No - *Social History Smoking Status: Never smoker Alcohol Intake: never Substance Use Type: denies use *Occupational Status:: employed Housing: house Household Members: spouse *Travel in the last 8 weeks: None Family Hx:: Coronary Artery Disease, Other, Heart Attack, Cancer Review of Systems - Constitutional Reports body ache(s), Reports chills, Reports lack of energy - Eyes Denies change in vision, Denies loss of vision - ENT Denies abnormal hearing, Denies difficulty swallowing - *Cardiovascular Denies chest pain, Denies chest pain at rest - *Respiratory Reports chest congestion, Reports cough, Reports shortness of breath, Reports shortness of breath with activity, Denies change in phlegm color - *Gastrointestinal Reports heartburn, Denies belching - *Genitourinary Denies difficulty urinating, Denies blood in urine - *Musculoskeletal Denies joint pain - Integumentary/Breasts Denies hair loss, Denies bleeding lesions - *Neurologic Reports confusion (Witnessed in the emergency department), Denies abnormal walking, Denies abnormal hearing Meds Home Medications Medication Instructions Recorded Confirmed Type allopurinoL [Allopurinol 300mg 300 mg PO DAILY 04/21/20 06/29/21 History tablet] Cyanocobalamin/Folic Acid [Vitamin 1 each PO DAILY 04/28/20 06/29/21 History X61-Xcrbm Acid Tablet] Fenofibrate Nanocrystallized 145 mg PO DAILY 04/28/20 06/29/21 History [Fenofibrate] Loratadine [Claritin] 10 mg PO DAILY 04/28/20 06/29/21 History meloxicam 15 mg tablet 15 mg PO DAILY tab 05/14/21 06/29/21 History Albuterol Sulfate [Albuterol 1 inh INHALATION QIDP PRN 06/29/21 06/29/21 History Sulfate Hfa] Azelastine HCl [Azelastine Nasal 1 spray INTRANASAL BID 06/29/21 06/29/21 History [place] 30mL Bottle] Azithromycin [Z-Sumanth 250mg Tab] 250 mg PO UD DOSE PK 06/29/21 06/29/21 History Fluticasone Propion/Salmeterol 1 puff INHALATION BID 06/29/21 06/29/21 History [Fluticasone-Salmeterol 100-50] Fluticasone Propionate 1 spray INTRANASAL DAILY 06/29/21 06/29/21 History Losartan Potassium [Cozaar 50mg 50 mg PO DAILY 06/29/21 06/29/21 History Tablets] Metoprolol Succinate [Metoprolol 25 mg PO HS 06/29/21 06/29/21 History Succinate 25mg Tablet*] p
[2021-06-29 17:21] LABS: Lactic Acid Follow Up (RFLX 1) 2.2 mmol/L (0.7-2.1)
[2021-06-29 17:38] LABS: Anion Gap 21.6 mEq/L (5-15); Blood Urea Nitrogen 35 mg/dl (9-20); Calcium 10.3 mg/dl (8.4-10.2); Carbon Dioxide 18 mmol/L (22.0-30.0); Chloride 97 mmol/L (98-107); Creatinine Clearance Estimated 64 mL/min (50-200); Estimated Glomerular Filt Rate 58 ml/min (>60); GFR (African American) 71 ML/MIN (>60); Glucose 293 mg/dl (74-100); Potassium 4.6 mmoL/L (3.5-5.1); Sodium 132 mmol/L (136-145)
[2021-06-29 18:54] LABS: POC Glucose,Bedside 367 (70-110)
[2021-06-29 18:54] LABS: POC Glucose,Bedside 381 (70-110)
[2021-06-29 18:54] LABS: POC Glucose,Bedside 388 (70-110)
[2021-06-29 18:59] LABS: Reflex Lactic (2 hrs) Add Lactic Reflex
[2021-06-29 19:44] LABS: Anion Gap 18.5 mEq/L (5-15); Blood Urea Nitrogen 40 mg/dl (9-20); Calcium 10.1 mg/dl (8.4-10.2); Carbon Dioxide 18 mmol/L (22.0-30.0); Chloride 98 mmol/L (98-107); Creatinine Clearance Estimated 59 mL/min (50-200); Estimated Glomerular Filt Rate 54 ml/min (>60); GFR (African American) 65 ML/MIN (>60); Glucose 336 mg/dl (74-100); Lactic Acid Follow up (RFLX 2) 1.3 mmol/L (0.7-2.1); Potassium 4.5 mmoL/L (3.5-5.1); Sodium 130 mmol/L (136-145)
[2021-06-29 22:15] LABS: POC Glucose,Bedside 267 (70-110)
[2021-06-29 22:15] LABS: POC Glucose,Bedside 288 (70-110)
[2021-06-29 22:20] LABS: POC Glucose,Bedside 239 (70-110)
[2021-06-29 23:15] LABS: POC Glucose,Bedside 207 (70-110)
[2021-06-30] VITALS (14 sets, daily range): BP systolic 94–173; BP diastolic 74–93; PULSE 72–100; RESP 20–26; TEMP 36.4–37.6; O2SAT 89–97; BMI 43.9
[2021-06-30 00:04] LABS: POC Glucose,Bedside 181 (70-110)
[2021-06-30 00:59] LABS: Chloride 99 mmol/L (98-107)
[2021-06-30 01:00] LABS: Potassium 4.1 mmoL/L (3.5-5.1); Sodium 133 mmol/L (136-145)
[2021-06-30 01:01] LABS: Acetone, Serum (Rapid) None Detected (None Detect)
[2021-06-30 01:03] LABS: Anion Gap 17.1 mEq/L (5-15); Blood Urea Nitrogen 44 mg/dl (9-20); Calcium 9.7 mg/dl (8.4-10.2); Carbon Dioxide 21 mmol/L (22.0-30.0); Creatinine Clearance Estimated 59 mL/min (50-200); Estimated Glomerular Filt Rate 54 ml/min (>60); GFR (African American) 65 ML/MIN (>60)
[2021-06-30 01:06] LABS: Glucose 201 mg/dl (74-100)
--- NOTE | 2021-06-30 01:06 | PC.NURSE ---
He reports SOA at rest. He was educated on the correct use of the incentive spirometer; reinforcement needed. He continues on vapotherm 40LPM 100% FiO2. He reports feeling tired and SOA at rest. Intermittent cough present. He states it is productive but is unable to describe sputum. Denies nausea or pain. He reports his last BM was on 06/29/21. Continues on insulin gtt.
[2021-06-30 01:31] LABS: POC Glucose,Bedside 233 (70-110)
--- NOTE | 2021-06-30 01:32 | PC.NURSE ---
Pt's acetone negative, anion gap without K+ included is closed. MD construction administrative assistant contacted and new orders received for medium intensity SSI ACHS and Lantus 20units once.
[2021-06-30 02:32] LABS: POC Glucose,Bedside 227 (70-110)
[2021-06-30 05:50] LABS: POC Glucose,Bedside 358 (70-110)
[2021-06-30 05:50] LABS: POC Glucose,Bedside 364 (70-110)
[2021-06-30 07:34] LABS: Basophils # 0.1 K/mm3 (0-0.2); Basophils % 0.5 % (0.1-2.0); Hematocrit 42.4 % (42.0-52.0); Lymphocytes % 17.7 % (10-50); Mean Corpuscular HGB Conc 35.1 g/dL (31.8-35.4); Mean Corpuscular Volume 85.5 fl (80-94); Mean Platelet Volume 9.1 fl (7.4-10.4); Monocytes # 0.6 K/mm3 (0.1-1.0); Neutrophils # 8.7 K/mm3 (1.8-7.8); Neutrophils % 76.7 % (37.0-80.0); Platelet Count 248 K/mm3 (142-424); Red Blood Count 4.95 M/mm3 (4.60-6.20); Red Cell Distribution Width 13.8 % (11.5-17.5); White Blood Count 11.4 K/mm3 (4.8-10.8)
[2021-06-30 07:51] LABS: Hemoglobin 14.9 g/dL (14.1-18.0)
[2021-06-30 07:54] LABS: Alanine Aminotransferase 73 U/L (12-78); Albumin Level 3.9 g/dl (3.5-5.0); Alkaline Phosphatase 118 U/L (38-126); Aspartate Amino Transferase 87 U/L (17-59); Bilirubin,Direct 0.4 mg/dl (0.0-0.4); Bilirubin,Indirect 0.2 mg/dL (0.0-0.9); Bilirubin,Total 0.6 mg/dl (0.2-1.3); Bilirubin,Unconjugated 0.2 mg/dL (0.0-1.1); Blood Urea Nitrogen 42 mg/dl (9-20); Calcium 9.5 mg/dl (8.4-10.2); Carbon Dioxide 15 mmol/L (22.0-30.0); Chloride 98 mmol/L (98-107); Creatinine Clearance Estimated 66 mL/min (50-200); Estimated Glomerular Filt Rate 64 ml/min (>60); GFR (African American) 78 ML/MIN (>60); Glucose 363 mg/dl (74-100); Sodium 132 mmol/L (136-145); Total Protein,Serum 7.2 g/dl (6.3-8.2)
--- NOTE | 2021-06-30 08:02 | HMH.ACPN2 ---
Internal Medicine - PN: Subj *Date: 06/30/21 *Time: 08:02 Interval history: Patient has had episodes of shortness of breath. Cough is productive. O2 sats is maintained above 90% on maximum high flow nasal cannula. Patient was able to prone for short periods of time yesterday evening. Insulin drip is now off. Exam Vital signs and Labs for Last 24 Hours: Temp Pulse Resp BP Pulse Ox 99.1 F 72 26 H 136/87 96 06/29/21 23:51 06/30/21 06:25 06/30/21 00:00 06/30/21 04:00 06/30/21 06:25 Laboratory Results - last 24 hr 06/29/21 10:27: WBC 11.9 H, RBC 5.59, Hgb 16.8, Hct 49.0, MCV 87.5, MCH 30.1, MCHC 34.4, RDW 13.9, Plt Count 249, MPV 8.8, Neut % (Auto) 80.2 H, Lymph % (Auto) 13.6, [place] % (Auto) 5.5, Eos % (Auto) 0.0 L, Baso % (Auto) 0.6, Neut # (Auto) 9.6 H, Lymph # (Auto) 1.6, [place] # (Auto) 0.7, Eos # (Auto) 0.0, Baso # (Auto) 0.1 06/29/21 10:42: Sodium 130 L, Potassium 5.0, Chloride 92 L, Carbon Dioxide 11 L, Anion Gap 32.0 H, BUN 31 H, Creatinine 1.20, Estimated Creat Clear 69, Estimated GFR 64, Est GFR ( Amer) 78, Glucose 622 H*, Calcium 10.9 H, Total Bilirubin 0.8, AST 113 H, ALT 93 H, Alkaline Phosphatase 150 H, Total Protein 8.3 H, Albumin 4.6, Globulin 3.7 H, Albumin/Globulin Ratio 1.2 06/29/21 10:42: D-Dimer 0.67 H 06/29/21 10:42: Acetone Level Moderate 06/29/21 10:42: Phosphorus 6.1 H, Magnesium 2.3 06/29/21 10:42: Lactate 2.7 H 06/29/21 11:16: VBG pH 7.26 L, VBG pCO2 26.2 L, VBG pO2 70.9 H, VBG HCO3 11.4 L, VBG Total CO2 12.2 L, VBG O2 Saturation 91.4 H, VBG Base Excess -15.8 L 06/29/21 13:19: POC Glucose 408 H* 06/29/21 14:14: POC Glucose 334 H* 06/29/21 15:22: POC Glucose 286 H 06/29/21 16:15: Lactate 2.2 H 06/29/21 16:15: Sodium 132 L, Potassium 4.6, Chloride 97 L, Carbon Dioxide 18 L, Anion Gap 21.6 H, BUN 35 H, Creatinine 1.30 H, Estimated Creat Clear 64, Estimated GFR 58 L, Est GFR ( Amer) 71, Glucose 293 H D, Calcium 10.3 H 06/29/21 16:59: POC Glucose 381 H* 06/29/21 18:07: POC Glucose 388 H* 06/29/21 18:47: POC Glucose 367 H* 06/29/21 19:18: Sodium 130 L, Potassium 4.5, Chloride 98, Carbon Dioxide 18 L, Anion Gap 18.5 H, BUN 40 H, Creatinine 1.40 H, Estimated Creat Clear 59, Estimated GFR 54 L, Est GFR ( Amer) 65, Glucose 336 H, Calcium 10.1 06/29/21 19:18: Lactate 1.3 06/29/21 20:25: POC Glucose 288 H 06/29/21 21:18: POC Glucose 267 H 06/29/21 22:13: POC Glucose 239 H 06/29/21 23:07: POC Glucose 207 H 06/29/21 23:56: POC Glucose 181 H 06/30/21 00:40: Sodium 133 L, Potassium 4.1, Chloride 99, Carbon Dioxide 21 L, Anion Gap 17.1 H, BUN 44 H, Creatinine 1.40 H, Estimated Creat Clear 59, Estimated GFR 54 L, Est GFR ( Amer) 65, Glucose 201 H D, Calcium 9.7 06/30/21 00:40: Acetone Level None detected 06/30/21 01:24: POC Glucose 233 H 06/30/21 02:25: POC Glucose 227 H 06/30/21 05:02: POC Glucose 364 H* 06/30/21 05:12: POC Glucose 358 H* 06/30/21 06:29: WBC 11.4 H, RBC 4.95, Hgb 14.9 D, Hct 42.4, MCV 85.5, MCH 30.0, MCHC 35.1, RDW 13.8, Plt Count 248, MPV 9.1, Neut % (Auto) 76.7, Lymph % (Auto) 17.7, [place] % (Auto) 5.0, Eos % (Auto) 0.0 L, Baso % (Auto) 0.5, Neut # (Auto) 8.7 H, Lymph # (Auto) 2.0, [place] # (Auto) 0.6, Eos # (Auto) 0.0, Baso # (Auto) 0.1 06/30/21 06:29: Sodium 132 L, Chloride 98, Carbon Dioxide 15 L, BUN 42 H, Creatinine 1.20, Estimated Creat Clear 66, Estimated GFR 64, Est GFR ( Amer) 78, Glucose 363 H D, Calcium 9.5, Total Bilirubin 0.6, Direct Bilirubin 0.4, Conjugated Bilirubin 0.0, Indirect Bilirubin 0.2, Unconjugated Bilirubin 0.2, AST 87 H, ALT 73, Alkaline Phosphatase 118, Total Protein 7.2, Albumin 3.9 D I & O for Last 24 hours: Intake & Output 06/27/21 06/28/21 06/29/21 06/30/21 11:59 11:59 11:59 11:59 Intake Total 3534 / 3534 Output Total 1500 / 1500 Balance 2033 Weight 280 lb 280 lb - Constitutional no acute distress - *Routine Respiratory Exam Present: rhonchi, distant breath sounds - *Routine Cardiovascular Exam Present: R
[2021-06-30 08:15] LABS: Anion Gap 23.4 mEq/L (5-15); Potassium 4.4 mmoL/L (3.5-5.1)
--- NOTE | 2021-06-30 10:51 | P.CONPHA_ITS ---
[facility] Pharmacy VTE Monitoring - Patient Demographics Admission date: 06/29/21 Report Date: 06/30/21 Time: 10:51 Allergies/Adverse Reactions: Patient Allergies atorvastatin [From Lipitor] Allergy (Mild, Verified 05/14/21 09:58) Hives Height: 1.7 m Weight: 127.006 kg Patient Problems: Current Active Problems Pneumonia due to COVID-19 virus (Acute) Respiratory failure with hypoxia (Acute) Diabetes mellitus, new onset (Acute) Mild persistent asthma (Acute) Essential hypertension (Acute) - VTE Risk Labs: VTE Related Lab Results Hgb 14.9 g/dL (14.1-18.0) D 06/30/21 06:29 Hct 42.4 % (42.0-52.0) 06/30/21 06:29 Plt Count 248 K/mm3 (142-424) 06/30/21 06:29 BUN 42 mg/dl (9-20) H 06/30/21 06:29 Creatinine 1.20 mg/dl (0.66-1.25) 06/30/21 06:29 Estimated Creat Clear 66 mL/min (50-200) 06/30/21 06:29 Was VTE Risk Assessment Performed: Yes VTE Score: 3 VTE Risk Level: Low Risk - Prophylaxis VTE Prophylaxis Ordered?: Yes Types of VTE Prophylaxis: Pharmacological Pharmacologic Type: Enoxaparin
[2021-06-30 11:56] LABS: Influenza A, PCR Not Detected (NotDetected); Influenza B, PCR Not Detected (NotDetected)
[2021-06-30 12:26] LABS: Coronavirus 19, PCR Detected (NotDetected)
[2021-06-30 17:42] LABS: Glucose,Random 365 mg/dL (74-100)
--- NOTE | 2021-06-30 17:45 | PC.NURSE ---
Addendum entered by Sumi Bush RN 06/30/21 17:50: Glucose from lab read 365. Will administer SSI. Original Note: 1709- FSBS read HI. STAT glucose ordered. lab notified. Awaiting results at this time to call on-call
--- NOTE | 2021-06-30 18:07 | PC.NURSE ---
Pt has been successfully weaned down to 30L, 70% fiO2 this shift. Pt currently between 91-95%. Pt has laid prone multiple times throughout this shift and was up to the chair majority of the morning. Pt has used IS multiple times t/o shift, IS @ best 500cc's. Family has been updated on POC multiple times this shift. Pt has been educated on finger sticks and administering insulin. This RN demonstrated @ 1100 and pt checked his own blood sugar and administered SQ insulin independently w/o any problems. Pt has been educated on what to eat and what not to eat when on a diabetic diet. Printed material given to pt in room. No other acute changes or complaints, will continue to monitor.
[2021-06-30 20:32] LABS: POC Glucose,Bedside 389 (70-110)
[2021-07-01] VITALS (14 sets, daily range): BP systolic 105–162; BP diastolic 53–93; PULSE 74–101; RESP 22–24; TEMP 36.6–36.9; O2SAT 91–97; BMI 43.9
--- NOTE | 2021-07-01 05:55 | PC.NURSE ---
He has slept sitting up in the bed. No changes in vapotherm settings. He continues to have a productive cough. No acute changes.
[2021-07-01 06:36] LABS: POC Glucose,Bedside 279 (70-110)
[2021-07-01 06:36] LABS: POC Glucose,Bedside 282 (70-110)
[2021-07-01 06:54] LABS: Basophils # 0.1 K/mm3 (0-0.2); Basophils % 0.8 % (0.1-2.0); Hematocrit 41.1 % (42.0-52.0); Hemoglobin 14.2 g/dL (14.1-18.0); Lymphocytes # 2.4 K/mm3 (0.7-4.5); Mean Corpuscular HGB Conc 34.6 g/dL (31.8-35.4); Mean Corpuscular Hemoglobin 29.4 pg (27.0-31.2); Mean Platelet Volume 8.4 fl (7.4-10.4); Monocytes # 0.7 K/mm3 (0.1-1.0); Monocytes % 7.7 % (1.7-9.3); Neutrophils # 5.4 K/mm3 (1.8-7.8); Neutrophils % 63.6 % (37.0-80.0); Platelet Count 269 K/mm3 (142-424); Red Blood Count 4.84 M/mm3 (4.60-6.20); Red Cell Distribution Width 13.9 % (11.5-17.5); White Blood Count 8.6 K/mm3 (4.8-10.8)
[2021-07-01 07:05] LABS: Alanine Aminotransferase 65 U/L (12-78); Albumin Level 3.6 g/dl (3.5-5.0); Albumin/Globulin Ratio 1.1 (1.1-1.8); Alkaline Phosphatase 115 U/L (38-126); Anion Gap 10.6 mEq/L (5-15); Aspartate Amino Transferase 76 U/L (17-59); Bilirubin,Total 0.5 mg/dl (0.2-1.3); Blood Urea Nitrogen 24 mg/dl (9-20); Calcium 9.4 mg/dl (8.4-10.2); Carbon Dioxide 25 mmol/L (22.0-30.0); Chloride 103 mmol/L (98-107); Creatinine Clearance Estimated 89 mL/min (50-200); Estimated Glomerular Filt Rate 89 ml/min (>60); GFR (African American) 108 ML/MIN (>60); Globulin 3.2 g/dL (1.3-3.2); Glucose 260 mg/dl (74-100); Potassium 3.6 mmoL/L (3.5-5.1); Sodium 135 mmol/L (136-145); Total Protein,Serum 6.8 g/dl (6.3-8.2)
--- NOTE | 2021-07-01 08:40 | HMH.ACPN2 ---
Internal Medicine - PN: Subj *Date: 07/01/21 *Time: 08:40 Interval history: Patient is pleasant, talkative, up in a chair, Vapotherm was able to be weaned down on his flow rate yesterday. Glucose levels are still in the 300 range. Exam Vital signs and Labs for Last 24 Hours: Temp Pulse Resp BP Pulse Ox 98.2 F 86 24 155/91 H 92 L 07/01/21 07:45 07/01/21 07:45 07/01/21 07:45 07/01/21 07:45 07/01/21 07:45 Laboratory Results - last 24 hr 06/30/21 11:49: SARS-CoV-2 (PCR) Detected A, Influenza A Untype (PCR) Not detected, Influenza Type B (PCR) Not detected 06/30/21 17:09: Random Glucose 365 H 06/30/21 20:15: POC Glucose 389 H* 07/01/21 04:51: POC Glucose 279 H 07/01/21 05:28: POC Glucose 282 H 07/01/21 06:15: WBC 8.6, RBC 4.84, Hgb 14.2, Hct 41.1 L, MCV 85.0, MCH 29.4, MCHC 34.6, RDW 13.9, Plt Count 269, MPV 8.4, Neut % (Auto) 63.6, Lymph % (Auto) 28.0, [place] % (Auto) 7.7, Eos % (Auto) 0.0 L, Baso % (Auto) 0.8, Neut # (Auto) 5.4, Lymph # (Auto) 2.4, [place] # (Auto) 0.7, Eos # (Auto) 0.0, Baso # (Auto) 0.1 07/01/21 06:15: Sodium 135 L, Potassium 3.6, Chloride 103, Carbon Dioxide 25, Anion Gap 10.6, BUN 24 H D, Creatinine 0.90 D, Estimated Creat Clear 89, Estimated GFR 89, Est GFR ( Amer) 108 D, Glucose 260 H D, Calcium 9.4, Total Bilirubin 0.5, AST 76 H, ALT 65, Alkaline Phosphatase 115, Total Protein 6.8, Albumin 3.6, Globulin 3.2, Albumin/Globulin Ratio 1.1 I & O for Last 24 hours: Intake & Output 06/28/21 06/29/21 06/30/21 07/01/21 11:59 11:59 11:59 11:59 Intake Total 3654 / 3654 2141 Output Total 1500 / 1500 Balance 2153 Weight 280 lb 280 lb 280 lb Narrative: Alert, oriented. Pleasant and talkative. Lungs have distal/lower lobe rhonchi but good air movement. Heart rate regular. Abdomen obese but soft. No rash or clubbing or edema. Neurologically intact. Assessment and Plan (1) Respiratory failure with hypoxia Status: Acute Qualifiers: Chronicity: acute Qualified Code(s): J96.01 - Acute respiratory failure with hypoxia Category: Medical Code(s): J96.91 - Respiratory failure, unspecified with hypoxia (2) DKA (diabetic ketoacidosis) Status: Resolved Qualifiers: Diabetes mellitus type: type 2 Diabetes mellitus complication detail: without coma Qualified Code(s): E11.10 - Type 2 diabetes mellitus with ketoacidosis without coma Category: Medical Code(s): E11.10 - Type 2 diabetes mellitus with ketoacidosis without coma (3) Diabetes mellitus, new onset Status: Acute Category: Medical Code(s): E11.9 - Type 2 diabetes mellitus without complications (4) Pneumonia due to COVID-19 virus Status: Acute Category: Medical Code(s): U07.1 - COVID-19; J12.82 - Pneumonia due to coronavirus disease 2019 (5) Mild persistent asthma Status: Acute Category: Medical Code(s): J45.30 - Mild persistent asthma, uncomplicated (6) Essential hypertension Status: Acute Category: Medical Code(s): I10 - Essential (primary) hypertension - Assessment and plan all Dx Assessment and Plan for all problems:: Respiratory status improving. Continue ventilatory/oxygenation support with Vapotherm. Wean as tolerated. DKA-resolved, continue sliding scale for new onset diabetes.
[2021-07-01 21:32] LABS: POC Glucose,Bedside 287 (70-110)
[2021-07-02] VITALS (12 sets, daily range): BP systolic 119–164; BP diastolic 61–95; PULSE 61–101; RESP 18–32; TEMP 36.8–37.4; O2SAT 91–95; BMI 43.4
--- NOTE | 2021-07-02 04:19 | PC.NURSE ---
Addendum entered by Dorota Vu RN 07/02/21 05:14: 0500- pt. had an episode of incontinence of the bowel; loose light colored stool noted. Original Note: Pt. c/o soa with movement; active o2 sat 88-90% and 90-92% at rest. Intermittent nonproductive cough noted. BM this shift. No c/o n/v/d, pain, or dizziness.
[2021-07-02 07:03] LABS: POC Glucose,Bedside 273 (70-110)
[2021-07-02 07:27] LABS: Basophils # 0.1 K/mm3 (0-0.2); Basophils % 0.8 % (0.1-2.0); Hematocrit 41.5 % (42.0-52.0); Hemoglobin 14.6 g/dL (14.1-18.0); Lymphocytes # 2.2 K/mm3 (0.7-4.5); Lymphocytes % 25.1 % (10-50); Mean Corpuscular HGB Conc 35.2 g/dL (31.8-35.4); Mean Corpuscular Hemoglobin 29.6 pg (27.0-31.2); Mean Corpuscular Volume 84.2 fl (80-94); Mean Platelet Volume 9.4 fl (7.4-10.4); Monocytes # 0.7 K/mm3 (0.1-1.0); Monocytes % 8.2 % (1.7-9.3); Neutrophils # 5.8 K/mm3 (1.8-7.8); Neutrophils % 65.9 % (37.0-80.0); Platelet Count 322 K/mm3 (142-424); Red Blood Count 4.93 M/mm3 (4.60-6.20); Red Cell Distribution Width 13.5 % (11.5-17.5); White Blood Count 8.8 K/mm3 (4.8-10.8)
--- NOTE | 2021-07-02 07:29 | HMH.ACPN2 ---
Internal Medicine - PN: Subj *Date: 07/02/21 *Time: 07:29 Interval history: Patient is slowly being weaned from HFNC. He reports feeling well Exam Vital signs and Labs for Last 24 Hours: Temp Pulse Resp BP Pulse Ox 98.2 F 61 20 119/67 93 L 07/02/21 04:00 07/02/21 06:30 07/02/21 04:00 07/02/21 04:00 07/02/21 06:30 Laboratory Results - last 24 hr 07/01/21 21:03: POC Glucose 287 H 07/02/21 06:15: POC Glucose 273 H I & O for Last 24 hours: Intake & Output 06/29/21 06/30/21 07/01/21 07/02/21 11:59 11:59 11:59 11:59 Intake Total 3654 / 3654 2142 / 2142 600 / 600 Output Total 1500 / 1500 400 / 400 400 / 400 Balance 2154 / 2154 1742 / 1742 200 / 200 Weight 280 lb 280 lb 280 lb 277 lb 2 oz Microbiology Reports for the Last 24 Hours: Microbiology 06/29/21 10:42 Blood Blood Culture - Preliminary NO GROWTH AFTER 48 HOURS 06/29/21 10:42 Blood Blood Culture - Preliminary NO GROWTH AFTER 48 HOURS Narrative: Patient looks comfortable. Oropharynx is moist. Lungs have bibasilar faint rhonchi. Heart has a regular rate and rhythm. Abdomen is obese. Lower extremities have no edema. Patient's blood sugars remain in the mid to high 200s Assessment and Plan (1) Respiratory failure with hypoxia Status: Acute Qualifiers: Chronicity: acute Qualified Code(s): J96.01 - Acute respiratory failure with hypoxia Category: Medical Code(s): J96.91 - Respiratory failure, unspecified with hypoxia (2) DKA (diabetic ketoacidosis) Status: Resolved Qualifiers: Diabetes mellitus type: type 2 Diabetes mellitus complication detail: without coma Qualified Code(s): E11.10 - Type 2 diabetes mellitus with ketoacidosis without coma Category: Medical Code(s): E11.10 - Type 2 diabetes mellitus with ketoacidosis without coma (3) Diabetes mellitus, new onset Status: Acute Category: Medical Code(s): E11.9 - Type 2 diabetes mellitus without complications (4) Pneumonia due to COVID-19 virus Status: Acute Category: Medical Code(s): U07.1 - COVID-19; J12.82 - Pneumonia due to coronavirus disease 2019 (5) Mild persistent asthma Status: Acute Category: Medical Code(s): J45.30 - Mild persistent asthma, uncomplicated (6) Essential hypertension Status: Acute Category: Medical Code(s): I10 - Essential (primary) hypertension - Assessment and plan all Dx Assessment and Plan for all problems:: 1. Continue weaning supplemental oxygen to keep sats greater than 90% at rest 2. Transition to oral dexamethasone 3. Increase patient's nightly Lantus
[2021-07-02 07:30] LABS: Alanine Aminotransferase 63 U/L (12-78); Albumin Level 3.6 g/dl (3.5-5.0); Albumin/Globulin Ratio 1.1 (1.1-1.8); Alkaline Phosphatase 115 U/L (38-126); Anion Gap 16.1 mEq/L (5-15); Aspartate Amino Transferase 68 U/L (17-59); Bilirubin,Total 0.6 mg/dl (0.2-1.3); Blood Urea Nitrogen 20 mg/dl (9-20); Calcium 9.8 mg/dl (8.4-10.2); Carbon Dioxide 20 mmol/L (22.0-30.0); Chloride 103 mmol/L (98-107); Creatinine Clearance Estimated 114 mL/min (50-200); Estimated Glomerular Filt Rate 119 ml/min (>60); GFR (African American) 144 ML/MIN (>60); Globulin 3.3 g/dL (1.3-3.2); Glucose 273 mg/dl (74-100); Potassium 4.1 mmoL/L (3.5-5.1); Sodium 135 mmol/L (136-145); Total Protein,Serum 6.9 g/dl (6.3-8.2)
[2021-07-02 20:46] LABS: POC Glucose,Bedside 264 (70-110)
[2021-07-03] VITALS (13 sets, daily range): BP systolic 102–154; BP diastolic 66–85; PULSE 85–105; RESP 18–26; TEMP 36.4–37.2; O2SAT 89–94; BMI 37.1
--- NOTE | 2021-07-03 04:44 | PC.NURSE ---
Patient has voiced no complaints to this RN thus far in the shift. Patient has rested okay this RN's shift. Patient continues to have a non-productive dry cough.
[2021-07-03 05:43] LABS: POC Glucose,Bedside 277 (70-110)
[2021-07-03 06:09] LABS: POC Glucose,Bedside 229 (70-110)
--- NOTE | 2021-07-03 06:26 | PC.NURSE ---
Specimen cup left at bedside for sputum.
--- NOTE | 2021-07-03 07:00 | HMH.ACPN2 ---
Internal Medicine - PN: Subj *Date: 07/03/21 *Time: 07:00 Interval history: No acute events over the last 24 hours. Patient has no complaints. O2 sats are in the low 90s on 10 L/min via nasal cannula Exam Vital signs and Labs for Last 24 Hours: Temp Pulse Resp BP Pulse Ox 97.5 F L 95 H 18 138/81 92 L 07/03/21 04:00 07/03/21 06:25 07/03/21 06:25 07/03/21 04:00 07/03/21 06:25 Laboratory Results - last 24 hr 07/02/21 05:40: WBC 8.8, RBC 4.93, Hgb 14.6, Hct 41.5 L, MCV 84.2, MCH 29.6, MCHC 35.2, RDW 13.5, Plt Count 322, MPV 9.4, Neut % (Auto) 65.9, Lymph % (Auto) 25.1, [place] % (Auto) 8.2, Eos % (Auto) 0.0 L, Baso % (Auto) 0.8, Neut # (Auto) 5.8, Lymph # (Auto) 2.2, [place] # (Auto) 0.7, Eos # (Auto) 0.0, Baso # (Auto) 0.1 07/02/21 05:40: Sodium 135 L, Potassium 4.1, Chloride 103, Carbon Dioxide 20 L, Anion Gap 16.1 H, BUN 20, Creatinine 0.70 D, Estimated Creat Clear 114, Estimated GFR 119, Est GFR ( Amer) 144 D, Glucose 273 H, Calcium 9.8, Total Bilirubin 0.6, AST 68 H, ALT 63, Alkaline Phosphatase 115, Total Protein 6.9, Albumin 3.6, Globulin 3.3 H, Albumin/Globulin Ratio 1.1 07/02/21 06:15: POC Glucose 273 H 07/02/21 11:28: POC Glucose 264 H 07/02/21 20:52: POC Glucose 229 H 07/03/21 05:35: POC Glucose 277 H I & O for Last 24 hours: Intake & Output 06/30/21 07/01/21 07/02/21 07/03/21 11:59 11:59 11:59 11:59 Intake Total 3654 / 3654 2142 / 2142 960 / 960 480 / 480 Output Total 1500 / 1500 400 / 400 400 / 400 400 / 400 Balance 2154 / 2154 1742 / 1742 560 / 560 80 / 80 Weight 280 lb 280 lb 277 lb 2 oz 236 lb 12.8 oz - Constitutional no acute distress - *Routine Respiratory Exam Present: distant breath sounds - *Routine Cardiovascular Exam Present: RRR - *Routine Abdominal Exam Present: soft, normoactive bowel sounds. Absent: tenderness Assessment and Plan (1) Respiratory failure with hypoxia Status: Acute Qualifiers: Chronicity: acute Qualified Code(s): J96.01 - Acute respiratory failure with hypoxia Category: Medical Code(s): J96.91 - Respiratory failure, unspecified with hypoxia (2) DKA (diabetic ketoacidosis) Status: Resolved Qualifiers: Diabetes mellitus type: type 2 Diabetes mellitus complication detail: without coma Qualified Code(s): E11.10 - Type 2 diabetes mellitus with ketoacidosis without coma Category: Medical Code(s): E11.10 - Type 2 diabetes mellitus with ketoacidosis without coma (3) Diabetes mellitus, new onset Status: Acute Category: Medical Code(s): E11.9 - Type 2 diabetes mellitus without complications (4) Pneumonia due to COVID-19 virus Status: Acute Category: Medical Code(s): U07.1 - COVID-19; J12.82 - Pneumonia due to coronavirus disease 2019 (5) Mild persistent asthma Status: Acute Category: Medical Code(s): J45.30 - Mild persistent asthma, uncomplicated (6) Essential hypertension Status: Acute Category: Medical Code(s): I10 - Essential (primary) hypertension - Assessment and plan all Dx Assessment and Plan for all problems:: 1. Continue Remdesivir, dexamethasone, baricitinib 2. Continue Levaquin for total of 5 days 3. Patient will be given a dose of intravenous Lasix today for diuresis to see if this aids with improving hypoxia 4. Increase patient's Lantus
[2021-07-03 08:31] LABS: Basophils # 0.1 K/mm3 (0-0.2); Basophils % 0.8 % (0.1-2.0); Eosinophils % 0.1 % (0.1-12.0); Hematocrit 41.2 % (42.0-52.0); Hemoglobin 14.3 g/dL (14.1-18.0); Lymphocytes # 2.3 K/mm3 (0.7-4.5); Lymphocytes % 15.8 % (10-50); Mean Corpuscular HGB Conc 34.9 g/dL (31.8-35.4); Mean Corpuscular Hemoglobin 29.3 pg (27.0-31.2); Monocytes # 0.5 K/mm3 (0.1-1.0); Monocytes % 3.4 % (1.7-9.3); Neutrophils # 11.5 K/mm3 (1.8-7.8); Neutrophils % 79.8 % (37.0-80.0); Platelet Count 339 K/mm3 (142-424); Red Cell Distribution Width 13.5 % (11.5-17.5); White Blood Count 14.4 K/mm3 (4.8-10.8)
[2021-07-03 08:36] LABS: Alanine Aminotransferase 56 U/L (12-78); Albumin Level 3.6 g/dl (3.5-5.0); Albumin/Globulin Ratio 1.2 (1.1-1.8); Alkaline Phosphatase 104 U/L (38-126); Anion Gap 13.2 mEq/L (5-15); Aspartate Amino Transferase 60 U/L (17-59); Bilirubin,Total 0.8 mg/dl (0.2-1.3); Blood Urea Nitrogen 14 mg/dl (9-20); Calcium 9.9 mg/dl (8.4-10.2); Carbon Dioxide 24 mmol/L (22.0-30.0); Chloride 99 mmol/L (98-107); Creatinine Clearance Estimated 168 mL/min (50-200); Estimated Glomerular Filt Rate 102 ml/min (>60); GFR (African American) 124 ML/MIN (>60); Globulin 3.1 g/dL (1.3-3.2); Glucose 320 mg/dl (74-100); Potassium 4.2 mmoL/L (3.5-5.1); Sodium 132 mmol/L (136-145); Total Protein,Serum 6.7 g/dl (6.3-8.2)
--- NOTE | 2021-07-03 10:33 | DIET.NUTRFU ---
Addendum entered by Mercy Lang RD, LD 07/04/21 11:12: PO intakes 75%, BG high avg. 290. Original Note: Nutrition consult received for newly dx DM, pt provided with diet edu/counseling and encouraged to f/u as OP after dc. BG high avg. 275.
--- NOTE | 2021-07-03 10:55 | HMH.ACPN ---
Internal Medicine - PN: Subj *Date: 07/03/21 *Time: 10:55 Exam Vital signs and Labs for Last 24 Hours: Temp Pulse Resp BP Pulse Ox 99 F 99 H 22 141/85 H 90 L 07/03/21 08:00 07/03/21 10:09 07/03/21 08:00 07/03/21 08:00 07/03/21 08:00 Laboratory Results - last 24 hr 07/02/21 11:28: POC Glucose 264 H 07/02/21 20:52: POC Glucose 229 H 07/03/21 05:35: POC Glucose 277 H 07/03/21 08:06: WBC 14.4 H D, RBC 4.90, Hgb 14.3, Hct 41.2 L, MCV 84.0, MCH 29.3, MCHC 34.9, RDW 13.5, Plt Count 339, MPV 9.0, Neut % (Auto) 79.8, Lymph % (Auto) 15.8, [place] % (Auto) 3.4, Eos % (Auto) 0.1, Baso % (Auto) 0.8, Neut # (Auto) 11.5 H, Lymph # (Auto) 2.3, [place] # (Auto) 0.5, Eos # (Auto) 0.0, Baso # (Auto) 0.1 07/03/21 08:06: Sodium 132 L, Potassium 4.2, Chloride 99, Carbon Dioxide 24, Anion Gap 13.2, BUN 14 D, Creatinine 0.80, Estimated Creat Clear 168, Estimated GFR 102, Est GFR ( Amer) 124, Glucose 320 H, Calcium 9.9, Total Bilirubin 0.8, AST 60 H, ALT 56, Alkaline Phosphatase 104, Total Protein 6.7, Albumin 3.6, Globulin 3.1, Albumin/Globulin Ratio 1.2 I & O for Last 24 hours: Intake & Output 06/30/21 07/01/21 07/02/21 07/03/21 23:59 23:59 23:59 23:59 Intake Total 3004 / 3004 1902 / 1902 840 / 840 720 / 720 Output Total 300 / 300 800 / 800 800 / 800 Balance 2704 / 2704 1102 / 1102 840 / 440 -80 / -80 Weight 127.006 kg 127 kg 125.702 kg 107.411 kg Assessment and Plan (1) Respiratory failure with hypoxia Status: Acute Qualifiers: Chronicity: acute Qualified Code(s): J96.01 - Acute respiratory failure with hypoxia Category: Medical Code(s): J96.91 - Respiratory failure, unspecified with hypoxia (2) DKA (diabetic ketoacidosis) Status: Resolved Qualifiers: Diabetes mellitus type: type 2 Diabetes mellitus complication detail: without coma Qualified Code(s): E11.10 - Type 2 diabetes mellitus with ketoacidosis without coma Category: Medical Code(s): E11.10 - Type 2 diabetes mellitus with ketoacidosis without coma (3) Diabetes mellitus, new onset Status: Acute Category: Medical Code(s): E11.9 - Type 2 diabetes mellitus without complications (4) Pneumonia due to COVID-19 virus Status: Acute Category: Medical Code(s): U07.1 - COVID-19; J12.82 - Pneumonia due to coronavirus disease 2019 (5) Mild persistent asthma Status: Acute Category: Medical Code(s): J45.30 - Mild persistent asthma, uncomplicated (6) Essential hypertension Status: Acute Category: Medical Code(s): I10 - Essential (primary) hypertension The patient's infection will respond to the chosen ABx?: Yes (EMPIRIC PNEUMO TREATMENT) Could a more targeted ABx be ordered?: No (SPUTUM UNOBTAINABLE)
[2021-07-03 11:35] LABS: POC Glucose,Bedside 393 (70-110)
[2021-07-03 16:38] LABS: POC Glucose,Bedside 364 (70-110)
[2021-07-03 20:03] LABS: POC Glucose,Bedside 324 (70-110)
[2021-07-04] VITALS (9 sets, daily range): BP systolic 98–116; BP diastolic 62–74; PULSE 71–105; RESP 18–20; TEMP 36.4–36.9; O2SAT 90–95; BMI 37.0
--- NOTE | 2021-07-04 05:13 | PC.NURSE ---
Pt tolerating 10 L nc with sats in low 90s. Pt will desat to low 80s/upper 70s with ambulation but recovers in about 5-10 minutes.
[2021-07-04 05:15] LABS: POC Glucose,Bedside 292 (70-110)
--- NOTE | 2021-07-04 05:15 | PC.NURSE ---
Pt tolerating 10 L nc well with sats in low 90s thus far. Pt will desat to low 80s with exertion but recovers in about 5 minutes and pt states he is asymptomatic. No complaints voiced to staff thus far. Was awake through majority of night. Pt states I just cant get comfortable. Pt using the IS once an hour while awake.
--- NOTE | 2021-07-04 06:56 | HMH.ACPN2 ---
Internal Medicine - PN: Subj *Date: 07/04/21 *Time: 06:56 Interval history: Patient reports feeling better. He has required increase in flow to 12 L/min to maintain sats above 90%. Appetite is good. Patient is using his incentive spirometer Exam Vital signs and Labs for Last 24 Hours: Temp Pulse Resp BP Pulse Ox 97.6 F 71 18 116/74 91 L 07/04/21 04:00 07/04/21 05:55 07/04/21 04:00 07/04/21 04:00 07/04/21 05:55 Laboratory Results - last 24 hr 07/03/21 08:06: WBC 14.4 H D, RBC 4.90, Hgb 14.3, Hct 41.2 L, MCV 84.0, MCH 29.3, MCHC 34.9, RDW 13.5, Plt Count 339, MPV 9.0, Neut % (Auto) 79.8, Lymph % (Auto) 15.8, [place] % (Auto) 3.4, Eos % (Auto) 0.1, Baso % (Auto) 0.8, Neut # (Auto) 11.5 H, Lymph # (Auto) 2.3, [place] # (Auto) 0.5, Eos # (Auto) 0.0, Baso # (Auto) 0.1 07/03/21 08:06: Sodium 132 L, Potassium 4.2, Chloride 99, Carbon Dioxide 24, Anion Gap 13.2, BUN 14 D, Creatinine 0.80, Estimated Creat Clear 168, Estimated GFR 102, Est GFR ( Amer) 124, Glucose 320 H, Calcium 9.9, Total Bilirubin 0.8, AST 60 H, ALT 56, Alkaline Phosphatase 104, Total Protein 6.7, Albumin 3.6, Globulin 3.1, Albumin/Globulin Ratio 1.2 07/03/21 11:28: POC Glucose 393 H* 07/03/21 16:30: POC Glucose 364 H* 07/03/21 19:56: POC Glucose 324 H* 07/04/21 05:05: POC Glucose 292 H I & O for Last 24 hours: Intake & Output 07/01/21 07/02/21 07/03/21 07/04/21 11:59 11:59 11:59 11:59 Intake Total 2142 / 2142 960 / 960 1200 / 1200 1440 / 1440 Output Total 400 / 400 400 / 400 800 / 800 2300 / 2300 Balance 1742 / 1742 560 / 560 400 / 400 -860 / -860 Weight 280 lb 277 lb 2 oz 236 lb 12.8 oz 235 lb 14.314 oz Microbiology Reports for the Last 24 Hours: Microbiology 06/29/21 22:35 Sputum - Expectorated Sputum Gram Stain - Final Narrative: Patient appears comfortable. Lungs have scattered rales heard in the right posterior middle lobe and left anterior upper lobe. Heart has regular rate and rhythm. Abdomen is obese and soft. Extremities have no edema Review of last 24 hours of glucose monitoring show elevated blood sugars compared to the previous few days Assessment and Plan (1) Respiratory failure with hypoxia Status: Acute Qualifiers: Chronicity: acute Qualified Code(s): J96.01 - Acute respiratory failure with hypoxia Category: Medical Code(s): J96.91 - Respiratory failure, unspecified with hypoxia (2) DKA (diabetic ketoacidosis) Status: Resolved Qualifiers: Diabetes mellitus type: type 2 Diabetes mellitus complication detail: without coma Qualified Code(s): E11.10 - Type 2 diabetes mellitus with ketoacidosis without coma Category: Medical Code(s): E11.10 - Type 2 diabetes mellitus with ketoacidosis without coma (3) Diabetes mellitus, new onset Status: Acute Category: Medical Code(s): E11.9 - Type 2 diabetes mellitus without complications (4) Pneumonia due to COVID-19 virus Status: Acute Category: Medical Code(s): U07.1 - COVID-19; J12.82 - Pneumonia due to coronavirus disease 2019 (5) Mild persistent asthma Status: Acute Category: Medical Code(s): J45.30 - Mild persistent asthma, uncomplicated (6) Essential hypertension Status: Acute Category: Medical Code(s): I10 - Essential (primary) hypertension - Assessment and plan all Dx Assessment and Plan for all problems:: 1. Check CRP today 2. Continue oral Levaquin 3. Continue treatment of COVID-19 with Remdesivir, baricitinib, dexamethasone 4. Increase patient's Lantus for his hyperglycemia
[2021-07-04 08:01] LABS: Basophils # 0.2 K/mm3 (0-0.2); Basophils % 1.3 % (0.1-2.0); Eosinophils # 0.1 K/mm3 (0.0-0.4); Eosinophils % 0.4 % (0.1-12.0); Hematocrit 39.9 % (42.0-52.0); Hemoglobin 13.9 g/dL (14.1-18.0); Lymphocytes # 2.7 K/mm3 (0.7-4.5); Lymphocytes % 17.6 % (10-50); Mean Corpuscular HGB Conc 34.9 g/dL (31.8-35.4); Mean Corpuscular Hemoglobin 29.2 pg (27.0-31.2); Mean Corpuscular Volume 83.6 fl (80-94); Mean Platelet Volume 8.8 fl (7.4-10.4); Monocytes # 0.5 K/mm3 (0.1-1.0); Monocytes % 3.4 % (1.7-9.3); Neutrophils # 11.7 K/mm3 (1.8-7.8); Neutrophils % 77.2 % (37.0-80.0); Platelet Count 364 K/mm3 (142-424); Red Blood Count 4.77 M/mm3 (4.60-6.20); Red Cell Distribution Width 13.5 % (11.5-17.5); White Blood Count 15.2 K/mm3 (4.8-10.8)
[2021-07-04 08:09] LABS: MANUAL DIFFERENTIAL MANUAL DIFFERENTIAL (MANUAL DIFF)
[2021-07-04 08:15] LABS: Alanine Aminotransferase 47 U/L (12-78); Albumin Level 3.6 g/dl (3.5-5.0); Albumin/Globulin Ratio 1.1 (1.1-1.8); Alkaline Phosphatase 98 U/L (38-126); Anion Gap 12.8 mEq/L (5-15); Aspartate Amino Transferase 44 U/L (17-59); Bilirubin,Total 0.5 mg/dl (0.2-1.3); Blood Urea Nitrogen 20 mg/dl (9-20); Calcium 10.3 mg/dl (8.4-10.2); Carbon Dioxide 28 mmol/L (22.0-30.0); Chloride 95 mmol/L (98-107); Creatinine Clearance Estimated 167 mL/min (50-200); Estimated Glomerular Filt Rate 102 ml/min (>60); GFR (African American) 124 ML/MIN (>60); Globulin 3.4 g/dL (1.3-3.2); Glucose 316 mg/dl (74-100); Potassium 3.8 mmoL/L (3.5-5.1); Sodium 132 mmol/L (136-145)
[2021-07-04 08:19] LABS: C-Reactive Protein 160.7 mg/L (0-4)
[2021-07-04 08:32] LABS: Eosinophils % 1 % (0-3); Lymphocytes % 14 % (10-50); Monocytes % 2 % (2-9); Neutrophils % 83 % (42-76); Platelet Estimate Normal; Total Cells Counted 100
[2021-07-04 11:34] LABS: POC Glucose,Bedside 320 (70-110)
--- NOTE | 2021-07-04 14:11 | PC.NURSE ---
Pt is alert and oriented x4. Lungs are diminished throughout. He remains on 12L high flow NC w/O2 sats running in the mid 90's. Oxygen saturations drop to the low 80's on exertion but return to the 90's after a few minutes of rest. He uses the BSC independently. He has had a few loose stools today. Appetite has been good. Glucose has been in the 300 range, covered w/SSI. He is currently sitting on the side of the bed talking on the phone. No complaints voiced thus far.
--- NOTE | 2021-07-04 14:29 | HMH.PHACONS ---
- Pharmacy Consult Date: 07/04/21 Time: 14:29 Referring provider: DR. WETZEL Reason for Consult:: VANCOMYCIN DOSING Allergies and ADEs:: Allergies Allergy/AdvReac Type Severity Reaction Status Date / Time atorvastatin [From Lipitor] Allergy Mild Hives Verified 05/14/21 09:58 Home Medications:: Home Medications Medication Instructions Recorded Confirmed Type allopurinoL [Allopurinol 300mg 300 mg PO DAILY 04/21/20 06/29/21 History tablet] Cyanocobalamin/Folic Acid [Vitamin 1 each PO DAILY 04/28/20 06/29/21 History H62-[id number] Acid Tablet] Fenofibrate Nanocrystallized 145 mg PO DAILY 04/28/20 06/29/21 History [Fenofibrate] Loratadine [Claritin] 10 mg PO DAILY 04/28/20 06/29/21 History meloxicam 15 mg tablet 15 mg PO DAILY tab 05/14/21 06/29/21 History Albuterol Sulfate [Albuterol 1 inh INHALATION QIDP PRN 06/29/21 06/29/21 History Sulfate Hfa] Azelastine HCl [Azelastine Nasal 1 spray INTRANASAL BID 06/29/21 06/29/21 History [place] 30mL Bottle] Azithromycin [Z-Sumanth 250mg Tab] 250 mg PO UD DOSE PK 06/29/21 06/29/21 History Fluticasone Propion/Salmeterol 1 puff INHALATION BID 06/29/21 06/29/21 History [Fluticasone-Salmeterol 100-50] Fluticasone Propionate 1 spray INTRANASAL DAILY 06/29/21 06/29/21 History Losartan Potassium [Cozaar 50mg 50 mg PO DAILY 06/29/21 06/29/21 History Tablets] Metoprolol Succinate [Metoprolol 25 mg PO HS 06/29/21 06/29/21 History Succinate 25mg Tablet*] predniSONE [Prednisone 10mg Tab 10 mg PO UD DOSE PK 06/29/21 06/29/21 History Dose-Pack] Height: 1.7 m Weight: 107 kg Laboratory Results:: Laboratory Results - last 24 hr 07/03/21 16:30: POC Glucose 364 H* 07/03/21 19:56: POC Glucose 324 H* 07/04/21 05:05: POC Glucose 292 H 07/04/21 07:42: WBC 15.2 H, RBC 4.77, Hgb 13.9 L, Hct 39.9 L, MCV 83.6, MCH 29.2, MCHC 34.9, RDW 13.5, Plt Count 364, MPV 8.8, Neut % (Auto) 77.2, Lymph % (Auto) 17.6, [place] % (Auto) 3.4, Eos % (Auto) 0.4, Baso % (Auto) 1.3, Neut # (Auto) 11.7 H, Lymph # (Auto) 2.7, [place] # (Auto) 0.5, Eos # (Auto) 0.1, Baso # (Auto) 0.2, Total Counted 100, Neutrophils % (Manual) 83 H, Lymphocytes % (Manual) 14, Monocytes % (Manual) 2, Eosinophils % (Manual) 1, Platelet Estimate Normal 07/04/21 07:42: Sodium 132 L, Potassium 3.8, Chloride 95 L, Carbon Dioxide 28, Anion Gap 12.8, BUN 20 D, Creatinine 0.80, Estimated Creat Clear 167, Estimated GFR 102, Est GFR ( Amer) 124, Glucose 316 H, Calcium 10.3 H, Total Bilirubin 0.5, AST 44 D, ALT 47, Alkaline Phosphatase 98, Total Protein 7.0, Albumin 3.6, Globulin 3.4 H, Albumin/Globulin Ratio 1.1 07/04/21 07:42: C-Reactive Protein 160.7 H 07/04/21 11:19: POC Glucose 320 H* Medical History: Reports:: Asthma, Gastroesophageal Reflux Disease(GERD), Hyperlipidemia, Hypertension Denies:: Cancer, Diabetes Mellitus Type 1, Diabetes Mellitus Type 2, Internal Pacemaker, MRSA, Seizures Assessment and Plan (1) Respiratory failure with hypoxia Status: Acute Qualifiers: Chronicity: acute Qualified Code(s): J96.01 - Acute respiratory failure with hypoxia Category: Medical Code(s): J96.91 - Respiratory failure, unspecified with hypoxia (2) DKA (diabetic ketoacidosis) Status: Resolved Qualifiers: Diabetes mellitus type: type 2 Diabetes mellitus complication detail: without coma Qualified Code(s): E11.10 - Type 2 diabetes mellitus with ketoacidosis without coma Category: Medical Code(s): E11.10 - Type 2 diabetes mellitus with ketoacidosis without coma (3) Diabetes mellitus, new onset Status: Acute Category: Medical Code(s): E11.9 - Type 2 diabetes mellitus without complications (4) Pneumonia due to COVID-19 virus Status: Acute Category: Medical Code(s): U07.1 - COVID-19; J12.82 - Pneumonia due to coronavirus disease 2019 (5) Mild persistent asthma Status: Acute Category: Medical Code(s): J45.30 - Mild persistent asthma, uncomplicated (6) Essential hypertension
[2021-07-04 16:37] LABS: POC Glucose,Bedside 314 (70-110)
[2021-07-04 20:19] LABS: POC Glucose,Bedside 355 (70-110)
--- NOTE | 2021-07-04 21:15 | PC.NURSE ---
updated pt's via telephone, will update again as needed
[2021-07-05] VITALS (12 sets, daily range): BP systolic 111–146; BP diastolic 55–92; PULSE 63–104; RESP 18–20; TEMP 36.6–37.2; O2SAT 90–96; BMI 37.0
--- NOTE | 2021-07-05 04:16 | PC.NURSE ---
pt had uneventful shift, pt unable to wean at all from 12LNC due to oxygen saturation usually at 90% with 12LNC and pt desats to low to mid 80's with any movement and/or coughing fits and takes a few minutes to recover and have sats back at 90% or greater, pt's fsbs continue to be high even with long acting and short acting insulin being given, will move pt to [facility] room 211 via wheelchair prior to shift change
[2021-07-05 05:32] LABS: POC Glucose,Bedside 297 (70-110)
--- NOTE | 2021-07-05 05:51 | PC.NURSE ---
PT WAS TRANSFERRED VIA W/C FROM SCU TO MED SURG W/ STAFF @ [id number]
--- NOTE | 2021-07-05 08:11 | XR_ITS ---
PROCEDURE INFORMATION: Exam: XR Chest Exam date and time: 07/05/2021 8:11 AM Age: 51 years old Clinical indication: Shortness of breath; Additional info: Covid pneumonia, hypoxia, TECHNIQUE: Imaging protocol: XR of the chest. Views: 1 view. COMPARISON: CR XR CHEST PORTABLE 06/29/2021 11:13 AM FINDINGS: Lungs: Opacities in the right upper lobe left mid lung and both bases may represent atelectasis or pneumonia.. Pleural spaces: Unremarkable. No pleural effusion. No pneumothorax. Heart/Mediastinum: Unremarkable. No cardiomegaly. Bones/joints: Unremarkable. IMPRESSION: Opacities in the right upper lobe left mid lung and both bases may represent atelectasis or pneumonia..
--- NOTE | 2021-07-05 08:13 | HMH.ACPN2 ---
Internal Medicine - PN: Subj *Date: 07/05/21 *Time: 08:13 Interval history: Patient reports no changes. There have been no acute events over the last 24 hours. He remains on 12 L via nasal cannula which is keeping his sats above 90% Exam Vital signs and Labs for Last 24 Hours: Temp Pulse Resp BP Pulse Ox 98.2 F 77 20 119/68 90 L 07/04/21 20:00 07/05/21 05:55 07/05/21 04:00 07/05/21 04:00 07/05/21 05:55 Laboratory Results - last 24 hr 07/04/21 07:42: Total Counted 100, Neutrophils % (Manual) 83 H, Lymphocytes % (Manual) 14, Monocytes % (Manual) 2, Eosinophils % (Manual) 1, Platelet Estimate Normal 07/04/21 07:42: Sodium 132 L, Potassium 3.8, Chloride 95 L, Carbon Dioxide 28, Anion Gap 12.8, BUN 20 D, Creatinine 0.80, Estimated Creat Clear 167, Estimated GFR 102, Est GFR ( Amer) 124, Glucose 316 H, Calcium 10.3 H, Total Bilirubin 0.5, AST 44 D, ALT 47, Alkaline Phosphatase 98, Total Protein 7.0, Albumin 3.6, Globulin 3.4 H, Albumin/Globulin Ratio 1.1 07/04/21 07:42: C-Reactive Protein 160.7 H 07/04/21 11:19: POC Glucose 320 H* 07/04/21 16:29: POC Glucose 314 H* 07/04/21 20:13: POC Glucose 355 H* 07/05/21 05:24: POC Glucose 297 H I & O for Last 24 hours: Intake & Output 07/02/21 07/03/21 07/04/21 07/05/21 11:59 11:59 11:59 11:59 Intake Total 960 / 960 1200 / 1200 1920 / 1920 2040 / 2040 Output Total 400 / 400 800 / 800 2900 / 2900 1500 / 1500 Balance 560 / 560 400 / 400 -980 / -980 540 / 540 Weight 277 lb 2 oz 236 lb 12.8 oz 235 lb 14.314 oz 235 lb 14.314 oz Microbiology Reports for the Last 24 Hours: Microbiology 06/29/21 10:42 Blood Blood Culture - Final NO GROWTH AFTER 5 DAYS 06/29/21 10:42 Blood Blood Culture - Final NO GROWTH AFTER 5 DAYS 06/29/21 22:35 Sputum - Expectorated Sputum Gram Stain - Final 06/29/21 22:35 Sputum - Expectorated Sputum Sputum Culture - Preliminary Narrative: Patient appears comfortable. He has distant scattered rales throughout the lung graff. Heart has a regular rate and rhythm. Abdomen is obese and soft lower extremities have trace edema Assessment and Plan (1) Respiratory failure with hypoxia Status: Acute Qualifiers: Chronicity: acute Qualified Code(s): J96.01 - Acute respiratory failure with hypoxia Category: Medical Code(s): J96.91 - Respiratory failure, unspecified with hypoxia (2) DKA (diabetic ketoacidosis) Status: Resolved Qualifiers: Diabetes mellitus type: type 2 Diabetes mellitus complication detail: without coma Qualified Code(s): E11.10 - Type 2 diabetes mellitus with ketoacidosis without coma Category: Medical Code(s): E11.10 - Type 2 diabetes mellitus with ketoacidosis without coma (3) Diabetes mellitus, new onset Status: Acute Category: Medical Code(s): E11.9 - Type 2 diabetes mellitus without complications (4) Pneumonia due to COVID-19 virus Status: Acute Category: Medical Code(s): U07.1 - COVID-19; J12.82 - Pneumonia due to coronavirus disease 2019 (5) Mild persistent asthma Status: Acute Category: Medical Code(s): J45.30 - Mild persistent asthma, uncomplicated (6) Essential hypertension Status: Acute Category: Medical Code(s): I10 - Essential (primary) hypertension - Assessment and plan all Dx Assessment and Plan for all problems:: 1. Continue dexamethasone, baricitinib, Remdesivir 2. Patient had vancomycin added to his regimen yesterday due to what appears to be staph in his sputum. Await final sputum culture 3. Procalcitonin has been added to morning labs 4. Continue diuresis with twice daily Lasix 5. Incentive spirometry
[2021-07-05 08:49] LABS: Basophils # 0.2 K/mm3 (0-0.2); Basophils % 0.9 % (0.1-2.0); Eosinophils # 0.2 K/mm3 (0.0-0.4); Hematocrit 39.4 % (42.0-52.0); Hemoglobin 13.8 g/dL (14.1-18.0); Lymphocytes # 2.5 K/mm3 (0.7-4.5); Lymphocytes % 11.9 % (10-50); Mean Corpuscular HGB Conc 34.9 g/dL (31.8-35.4); Mean Corpuscular Hemoglobin 29.9 pg (27.0-31.2); Mean Corpuscular Volume 85.6 fl (80-94); Mean Platelet Volume 8.8 fl (7.4-10.4); Monocytes # 0.9 K/mm3 (0.1-1.0); Monocytes % 4.6 % (1.7-9.3); Neutrophils # 16.7 K/mm3 (1.8-7.8); Neutrophils % 81.5 % (37.0-80.0); Platelet Count 435 K/mm3 (142-424); Red Blood Count 4.61 M/mm3 (4.60-6.20); Red Cell Distribution Width 13.5 % (11.5-17.5); White Blood Count 20.5 K/mm3 (4.8-10.8)
[2021-07-05 08:51] LABS: MANUAL DIFFERENTIAL MANUAL DIFFERENTIAL (MANUAL DIFF)
[2021-07-05 08:52] LABS: Albumin Level 3.5 g/dl (3.5-5.0); Albumin/Globulin Ratio 1.1 (1.1-1.8); Alkaline Phosphatase 102 U/L (38-126); Anion Gap 8.7 mEq/L (5-15); Aspartate Amino Transferase 45 U/L (17-59); Bilirubin,Total 0.5 mg/dl (0.2-1.3); Blood Urea Nitrogen 22 mg/dl (9-20); Calcium 9.9 mg/dl (8.4-10.2); Carbon Dioxide 29 mmol/L (22.0-30.0); Chloride 97 mmol/L (98-107); Creatinine Clearance Estimated 149 mL/min (50-200); Estimated Glomerular Filt Rate 89 ml/min (>60); GFR (African American) 108 ML/MIN (>60); Globulin 3.1 g/dL (1.3-3.2); Glucose 323 mg/dl (74-100); Potassium 3.7 mmoL/L (3.5-5.1); Sodium 131 mmol/L (136-145); Total Protein,Serum 6.6 g/dl (6.3-8.2)
[2021-07-05 09:09] LABS: Eosinophils % 1 % (0-3); Lymphocytes % 13 % (10-50); Monocytes % 4 % (2-9); Neutrophils % 82 % (42-76); Total Cells Counted 100
[2021-07-05 09:10] LABS: Platelet Estimate Slight Increase; RBC Morphology Normal
[2021-07-05 09:26] LABS: Alanine Aminotransferase 47 U/L (12-78)
[2021-07-05 09:27] LABS: Procalcitonin 0.274 ng/mL (0.0-2.0)
[2021-07-05 11:38] LABS: POC Glucose,Bedside 383 (70-110)
[2021-07-05 15:30] LABS: Vancomycin,Trough 8.7 ug/mL (5.0-10.0)
--- NOTE | 2021-07-05 17:32 | PC.NURSE ---
No acute changes. O2 weaned to 6 L nasal cannula, no s/s of resp distress. Lungs diminished. IS encouraged, IS @ best 1250. Pt did get up and take a shower today, tolerated well. BS remain high. No concerns voiced.
[2021-07-05 18:46] LABS: Vancomycin,Peak 38.5 ug/ml (11-39)
--- NOTE | 2021-07-05 21:24 | PC.NURSE ---
pt's fsbs 507, placed order for stat lab glucose to be drawn, notified MD Mena [employer] reading teacher of pt's fsbs, instructed to give 30units lispro and the scheduled 50units lantus, will do so and continue to monitor
[2021-07-05 22:13] LABS: Glucose,Random 524 mg/dL (74-100)
--- NOTE | 2021-07-05 22:19 | PC.NURSE ---
lab notified RN of pt's critical lab glucose of 524, notified MD Rajesh guerrero of lab result, no new orders at this time
[2021-07-06] VITALS (12 sets, daily range): BP systolic 98–130; BP diastolic 55–73; PULSE 78–101; RESP 18–22; TEMP 36.5–37.2; O2SAT 85–98; BMI 41.1
[2021-07-06 06:21] LABS: Basophils # 0.2 K/mm3 (0-0.2); Eosinophils # 0.2 K/mm3 (0.0-0.4); Eosinophils % 1.1 % (0.1-12.0); Hematocrit 39.3 % (42.0-52.0); Lymphocytes # 2.7 K/mm3 (0.7-4.5); Lymphocytes % 13.6 % (10-50); Mean Corpuscular HGB Conc 35.7 g/dL (31.8-35.4); Mean Corpuscular Hemoglobin 30.1 pg (27.0-31.2); Mean Corpuscular Volume 84.2 fl (80-94); Mean Platelet Volume 8.9 fl (7.4-10.4); Monocytes # 1.1 K/mm3 (0.1-1.0); Monocytes % 5.3 % (1.7-9.3); Neutrophils # 15.6 K/mm3 (1.8-7.8); Neutrophils % 78.9 % (37.0-80.0); Platelet Count 508 K/mm3 (142-424); Red Blood Count 4.67 M/mm3 (4.60-6.20); Red Cell Distribution Width 13.4 % (11.5-17.5); White Blood Count 19.8 K/mm3 (4.8-10.8)
[2021-07-06 06:28] LABS: Alanine Aminotransferase 45 U/L (12-78); Albumin Level 3.6 g/dl (3.5-5.0); Albumin/Globulin Ratio 1.1 (1.1-1.8); Alkaline Phosphatase 91 U/L (38-126); Anion Gap 10.6 mEq/L (5-15); Aspartate Amino Transferase 45 U/L (17-59); Bilirubin,Total 0.4 mg/dl (0.2-1.3); Blood Urea Nitrogen 25 mg/dl (9-20); Carbon Dioxide 32 mmol/L (22.0-30.0); Chloride 95 mmol/L (98-107); Creatinine Clearance Estimated 89 mL/min (50-200); Estimated Glomerular Filt Rate 89 ml/min (>60); GFR (African American) 108 ML/MIN (>60); Globulin 3.2 g/dL (1.3-3.2); Glucose 252 mg/dl (74-100); Potassium 3.6 mmoL/L (3.5-5.1); Sodium 134 mmol/L (136-145); Total Protein,Serum 6.8 g/dl (6.3-8.2)
[2021-07-06 06:32] LABS: MANUAL DIFFERENTIAL MANUAL DIFFERENTIAL (MANUAL DIFF)
[2021-07-06 07:00] LABS: Eosinophils % 3 % (0-3); Lymphocytes % 12 % (10-50); Monocytes % 7 % (2-9); Neutrophils % 77 % (42-76); Platelet Estimate Normal; Total Cells Counted 100
--- NOTE | 2021-07-06 07:22 | HMH.ACPN2 ---
Internal Medicine - PN: Subj *Date: 07/06/21 *Time: 07:22 Interval history: No acute events over the last 24 hours. Patient reports feeling great . Supplemental oxygen has been decreased to 6 L/min maintaining sats around 90%. Patient has been out of bed and reports no dyspnea with ambulation Exam Vital signs and Labs for Last 24 Hours: Temp Pulse Resp BP Pulse Ox 98.2 F 79 18 130/73 90 L 07/06/21 04:00 07/06/21 05:57 07/06/21 04:00 07/06/21 04:00 07/06/21 05:57 Laboratory Results - last 24 hr 07/05/21 08:30: WBC 20.5 H* D, RBC 4.61, Hgb 13.8 L, Hct 39.4 L, MCV 85.6, MCH 29.9, MCHC 34.9, RDW 13.5, Plt Count 435 H, MPV 8.8, Neut % (Auto) 81.5 H, Lymph % (Auto) 11.9, [place] % (Auto) 4.6, Eos % (Auto) 1.0, Baso % (Auto) 0.9, Neut # (Auto) 16.7 H, Lymph # (Auto) 2.5, [place] # (Auto) 0.9, Eos # (Auto) 0.2, Baso # (Auto) 0.2, Total Counted 100, Neutrophils % (Manual) 82 H, Lymphocytes % (Manual) 13, Monocytes % (Manual) 4, Eosinophils % (Manual) 1, Platelet Estimate Slight increase, RBC Morphology Normal 07/05/21 08:30: Sodium 131 L, Potassium 3.7, Chloride 97 L, Carbon Dioxide 29, Anion Gap 8.7, BUN 22 H, Creatinine 0.90, Estimated Creat Clear 149, Estimated GFR 89, Est GFR ( Amer) 108, Glucose 323 H, Calcium 9.9, Total Bilirubin 0.5, AST 45, ALT 47, Alkaline Phosphatase 102, Total Protein 6.6, Albumin 3.5, Globulin 3.1, Albumin/Globulin Ratio 1.1 07/05/21 08:30: Procalcitonin 0.274 07/05/21 11:16: POC Glucose 383 H* 07/05/21 14:43: Vancomycin Trough 8.7 07/05/21 18:00: Vancomycin Peak 38.5 07/05/21 21:40: Random Glucose 524 H* D 07/06/21 05:34: WBC 19.8 H, RBC 4.67, Hgb 14.0 L, Hct 39.3 L, MCV 84.2, MCH 30.1, MCHC 35.7 H, RDW 13.4, Plt Count 508 H, MPV 8.9, Neut % (Auto) 78.9, Lymph % (Auto) 13.6, [place] % (Auto) 5.3, Eos % (Auto) 1.1, Baso % (Auto) 1.0, Neut # (Auto) 15.6 H, Lymph # (Auto) 2.7, [place] # (Auto) 1.1 H, Eos # (Auto) 0.2, Baso # (Auto) 0.2, Total Counted 100, Neutrophils % (Manual) 77 H, Lymphocytes % (Manual) 12, Monocytes % (Manual) 7, Eosinophils % (Manual) 3, Blast Cells % 1.0, Platelet Estimate Normal 07/06/21 05:34: Sodium 134 L, Potassium 3.6, Chloride 95 L, Carbon Dioxide 32 H, Anion Gap 10.6, BUN 25 H, Creatinine 0.90, Estimated Creat Clear 89, Estimated GFR 89, Est GFR ( Amer) 108, Glucose 252 H D, Calcium 10.0, Total Bilirubin 0.4, AST 45, ALT 45, Alkaline Phosphatase 91, Total Protein 6.8, Albumin 3.6, Globulin 3.2, Albumin/Globulin Ratio 1.1 I & O for Last 24 hours: Intake & Output 07/03/21 07/04/21 07/05/21 07/06/21 11:59 11:59 11:59 11:59 Intake Total 1200 / 1200 1920 / 1920 2400 / 2400 1400 / 1400 Output Total 800 / 800 2900 / 2900 1500 / 1500 Balance 400 / 400 -980 / -980 900 / 900 1400 / 1400 Weight 236 lb 12.8 oz 235 lb 14.314 oz 235 lb 14.314 oz 262 lb Microbiology Reports for the Last 24 Hours: Microbiology 06/29/21 22:35 Sputum - Expectorated Sputum Gram Stain - Final 06/29/21 22:35 Sputum - Expectorated Sputum Sputum Culture - Preliminary Narrative: Patient looks comfortable. He has distant breath sounds with faint rales bilaterally. Heart has a regular rate and rhythm. Lower extremities have no edema Assessment and Plan (1) Respiratory failure with hypoxia Status: Acute Qualifiers: Chronicity: acute Qualified Code(s): J96.01 - Acute respiratory failure with hypoxia Category: Medical Code(s): J96.91 - Respiratory failure, unspecified with hypoxia (2) DKA (diabetic ketoacidosis) Status: Resolved Qualifiers: Diabetes mellitus type: type 2 Diabetes mellitus complication detail: without coma Qualified Code(s): E11.10 - Type 2 diabetes mellitus with ketoacidosis without coma Category: Medical Code(s): E11.10 - Type 2 diabetes mellitus with ketoacidosis without coma (3) Diabetes mellitus, new onset Status: Acute Category: Medical Code(s): E11.9 - Type 2 diabetes mellitus without complications (4) Pneumonia due t
--- NOTE | 2021-07-06 10:42 | HMH.PHACONS ---
- Pharmacy Consult Date: 07/06/21 Time: 10:42 Referring provider: DR. WETZEL Reason for Consult:: VANCOMYCIN LEVELS Allergies and ADEs:: Allergies Allergy/AdvReac Type Severity Reaction Status Date / Time atorvastatin [From Lipitor] Allergy Mild Hives Verified 05/14/21 09:58 Home Medications:: Home Medications Medication Instructions Recorded Confirmed Type allopurinoL [Allopurinol 300mg 300 mg PO DAILY 04/21/20 06/29/21 History tablet] Cyanocobalamin/Folic Acid [Vitamin 1 each PO DAILY 04/28/20 06/29/21 History D10-[id number] Acid Tablet] Fenofibrate Nanocrystallized 145 mg PO DAILY 04/28/20 06/29/21 History [Fenofibrate] Loratadine [Claritin] 10 mg PO DAILY 04/28/20 06/29/21 History meloxicam 15 mg tablet 15 mg PO DAILY tab 05/14/21 06/29/21 History Albuterol Sulfate [Albuterol 1 inh INHALATION QIDP PRN 06/29/21 06/29/21 History Sulfate Hfa] Azelastine HCl [Azelastine Nasal 1 spray INTRANASAL BID 06/29/21 06/29/21 History [place] 30mL Bottle] Azithromycin [Z-Sumanth 250mg Tab] 250 mg PO UD DOSE PK 06/29/21 06/29/21 History Fluticasone Propion/Salmeterol 1 puff INHALATION BID 06/29/21 06/29/21 History [Fluticasone-Salmeterol 100-50] Fluticasone Propionate 1 spray INTRANASAL DAILY 06/29/21 06/29/21 History Losartan Potassium [Cozaar 50mg 50 mg PO DAILY 06/29/21 06/29/21 History Tablets] Metoprolol Succinate [Metoprolol 25 mg PO HS 06/29/21 06/29/21 History Succinate 25mg Tablet*] predniSONE [Prednisone 10mg Tab 10 mg PO UD DOSE PK 06/29/21 06/29/21 History Dose-Pack] Height: 1.7 m Weight: 118.841 kg Laboratory Results:: Laboratory Results - last 24 hr 07/05/21 11:16: POC Glucose 383 H* 07/05/21 14:43: Vancomycin Trough 8.7 07/05/21 18:00: Vancomycin Peak 38.5 07/05/21 21:40: Random Glucose 524 H* D 07/06/21 05:34: WBC 19.8 H, RBC 4.67, Hgb 14.0 L, Hct 39.3 L, MCV 84.2, MCH 30.1, MCHC 35.7 H, RDW 13.4, Plt Count 508 H, MPV 8.9, Neut % (Auto) 78.9, Lymph % (Auto) 13.6, [place] % (Auto) 5.3, Eos % (Auto) 1.1, Baso % (Auto) 1.0, Neut # (Auto) 15.6 H, Lymph # (Auto) 2.7, [place] # (Auto) 1.1 H, Eos # (Auto) 0.2, Baso # (Auto) 0.2, Total Counted 100, Neutrophils % (Manual) 77 H, Lymphocytes % (Manual) 12, Monocytes % (Manual) 7, Eosinophils % (Manual) 3, Blast Cells % 1.0, Platelet Estimate Normal 07/06/21 05:34: Sodium 134 L, Potassium 3.6, Chloride 95 L, Carbon Dioxide 32 H, Anion Gap 10.6, BUN 25 H, Creatinine 0.90, Estimated Creat Clear 89, Estimated GFR 89, Est GFR ( Amer) 108, Glucose 252 H D, Calcium 10.0, Total Bilirubin 0.4, AST 45, ALT 45, Alkaline Phosphatase 91, Total Protein 6.8, Albumin 3.6, Globulin 3.2, Albumin/Globulin Ratio 1.1 Medical History: Reports:: Asthma, Gastroesophageal Reflux Disease(GERD), Hyperlipidemia, Hypertension Denies:: Cancer, Diabetes Mellitus Type 1, Diabetes Mellitus Type 2, Internal Pacemaker, MRSA, Seizures Assessment and Plan (1) Respiratory failure with hypoxia Status: Acute Qualifiers: Chronicity: acute Qualified Code(s): J96.01 - Acute respiratory failure with hypoxia Category: Medical Code(s): J96.91 - Respiratory failure, unspecified with hypoxia (2) DKA (diabetic ketoacidosis) Status: Resolved Qualifiers: Diabetes mellitus type: type 2 Diabetes mellitus complication detail: without coma Qualified Code(s): E11.10 - Type 2 diabetes mellitus with ketoacidosis without coma Category: Medical Code(s): E11.10 - Type 2 diabetes mellitus with ketoacidosis without coma (3) Diabetes mellitus, new onset Status: Acute Category: Medical Code(s): E11.9 - Type 2 diabetes mellitus without complications (4) Pneumonia due to COVID-19 virus Status: Acute Category: Medical Code(s): U07.1 - COVID-19; J12.82 - Pneumonia due to coronavirus disease 2018 (5) Mild persistent asthma Status: Acute Category: Medical Code(s): J45.30 - Mild persistent asthma, uncomplicated (6) Essential hypertension Status: Ac
--- NOTE | 2021-07-06 10:51 | PC.NURSE ---
0750 PT DESAT TO 84% ON 6L HIGH FLOW NC. O2 INCREASED TO 8LNC. PT COULD NOT SUSTAIN APPROPRIATE O2 SATURATION >90% SO O2 TITRATED TO 10 LNC. PT 93% ON 10 HIGH FLOW NC.
--- NOTE | 2021-07-06 11:17 | DIET.NUTRFU ---
PO intake >75% at most meals. Glucose elevated- running at 383, 524, 252. Morning dose of lantus given for hyperglycemia per MD progress note.
[2021-07-06 16:38] LABS: POC Glucose,Bedside 300 (70-110)
[2021-07-06 16:38] LABS: POC Glucose,Bedside 334 (70-110)
--- NOTE | 2021-07-06 18:43 | PC.NURSE ---
PT REMAINS ON 10 LNC FROM HIGH FLOW NASAL CANNULA. HE HAS USED INCENTIVE BLAIR ORDERED THIS SHIFT AND SPENT SOME TIME UP TO CHAIR. FSBS REMAIN HIGH THIS SHIFT, TREATED WITH SSI PER OCT.
[2021-07-07] VITALS (8 sets, daily range): BP systolic 100–130; BP diastolic 60–72; PULSE 71–99; RESP 22; TEMP 36.6–37; O2SAT 90–97; BMI 42.3
[2021-07-07 00:42] LABS: POC Glucose,Bedside 372 (70-110)
[2021-07-07 00:42] LABS: POC Glucose,Bedside 396 (70-110)
--- NOTE | 2021-07-07 04:38 | PC.NURSE ---
No acute events thus far in this RN's shift. Patient has remained awake all night thus far. Patient states I just cannot get comfortable in these beds
[2021-07-07 07:21] LABS: Alanine Aminotransferase 48 U/L (12-78); Albumin Level 3.5 g/dl (3.5-5.0); Albumin/Globulin Ratio 1.1 (1.1-1.8); Alkaline Phosphatase 94 U/L (38-126); Anion Gap 9.8 mEq/L (5-15); Aspartate Amino Transferase 49 U/L (17-59); Bilirubin,Total 0.5 mg/dl (0.2-1.3); Blood Urea Nitrogen 26 mg/dl (9-20); Calcium 9.8 mg/dl (8.4-10.2); Carbon Dioxide 29 mmol/L (22.0-30.0); Chloride 98 mmol/L (98-107); Creatinine Clearance Estimated 100 mL/min (50-200); Estimated Glomerular Filt Rate 102 ml/min (>60); GFR (African American) 124 ML/MIN (>60); Globulin 3.3 g/dL (1.3-3.2); Glucose 144 mg/dl (74-100); Potassium 3.8 mmoL/L (3.5-5.1); Sodium 133 mmol/L (136-145); Total Protein,Serum 6.8 g/dl (6.3-8.2)
[2021-07-07 07:26] LABS: C-Reactive Protein 27.8 mg/L (0-4)
[2021-07-07 07:27] LABS: Basophils # 0.2 K/mm3 (0-0.2); Eosinophils # 0.3 K/mm3 (0.0-0.4); Eosinophils % 1.4 % (0.1-12.0); Hematocrit 37.7 % (42.0-52.0); Hemoglobin 13.5 g/dL (14.1-18.0); Lymphocytes # 2.9 K/mm3 (0.7-4.5); Lymphocytes % 14.8 % (10-50); Mean Corpuscular HGB Conc 35.9 g/dL (31.8-35.4); Mean Corpuscular Hemoglobin 29.9 pg (27.0-31.2); Mean Corpuscular Volume 83.4 fl (80-94); Mean Platelet Volume 9.2 fl (7.4-10.4); Monocytes # 0.9 K/mm3 (0.1-1.0); Monocytes % 4.8 % (1.7-9.3); Neutrophils # 15.4 K/mm3 (1.8-7.8); Platelet Count 525 K/mm3 (142-424); Red Blood Count 4.52 M/mm3 (4.60-6.20); Red Cell Distribution Width 13.5 % (11.5-17.5); White Blood Count 19.8 K/mm3 (4.8-10.8)
[2021-07-07 07:33] LABS: MANUAL DIFFERENTIAL MANUAL DIFFERENTIAL (MANUAL DIFF)
--- NOTE | 2021-07-07 08:10 | HMH.ACPN2 ---
Internal Medicine - PN: Subj *Date: 07/07/21 *Time: 08:10 Interval history: Patient without complaints. Yesterday patient required increase in supplemental oxygen back to 10 L/min to maintain sats in the low to mid 90s. Patient states this occurred with a coughing spell. He denies shortness of breath at rest or with exertion Exam Vital signs and Labs for Last 24 Hours: Temp Pulse Resp BP Pulse Ox 97.9 F 86 22 125/72 94 L 07/07/21 04:00 07/07/21 07:26 07/07/21 07:26 07/07/21 07:26 07/07/21 07:26 Laboratory Results - last 24 hr 07/06/21 09:31: POC Glucose 300 H 07/06/21 11:33: POC Glucose 334 H* 07/06/21 16:55: POC Glucose 396 H* 07/06/21 20:37: POC Glucose 372 H* 07/07/21 06:51: Sodium 133 L, Potassium 3.8, Chloride 98, Carbon Dioxide 29, Anion Gap 9.8, BUN 26 H, Creatinine 0.80, Estimated Creat Clear 100, Estimated GFR 102, Est GFR ( Amer) 124, Glucose 144 H, Calcium 9.8, Total Bilirubin 0.5, AST 49, ALT 48, Alkaline Phosphatase 94, C-Reactive Protein 27.8 H D, Total Protein 6.8, Albumin 3.5, Globulin 3.3 H, Albumin/Globulin Ratio 1.1 07/07/21 06:51: WBC 19.8 H, RBC 4.52 L, Hgb 13.5 L, Hct 37.7 L, MCV 83.4, MCH 29.9, MCHC 35.9 H, RDW 13.5, Plt Count 525 H, MPV 9.2, Neut % (Auto) 78.0, Lymph % (Auto) 14.8, [place] % (Auto) 4.8, Eos % (Auto) 1.4, Baso % (Auto) 1.0, Neut # (Auto) 15.4 H, Lymph # (Auto) 2.9, [place] # (Auto) 0.9, Eos # (Auto) 0.3, Baso # (Auto) 0.2 I & O for Last 24 hours: Intake & Output 07/04/21 07/05/21 07/06/21 11/27/21 11:59 11:59 11:59 11:59 Intake Total 1920 / 1920 2400 / 2400 1760 / 1760 720 / 720 Output Total 2900 / 2900 1500 / 1500 Balance -980 / -980 900 / 900 1760 / 1760 720 / 720 Weight 235 lb 14.314 oz 235 lb 14.314 oz 262 lb 269 lb 5.772 oz Microbiology Reports for the Last 24 Hours: Microbiology 06/29/21 22:35 Sputum - Expectorated Sputum Gram Stain - Final 06/29/21 22:35 Sputum - Expectorated Sputum Sputum Culture - Final Normal Respiratory Anai Narrative: Patient appears comfortable without increased work of breathing. Lungs have diffuse rales. Heart has regular rate and rhythm. Abdomen is soft, nontender, nondistended Assessment and Plan (1) Respiratory failure with hypoxia Status: Acute Qualifiers: Chronicity: acute Qualified Code(s): J96.01 - Acute respiratory failure with hypoxia Category: Medical Code(s): J96.91 - Respiratory failure, unspecified with hypoxia (2) DKA (diabetic ketoacidosis) Status: Resolved Qualifiers: Diabetes mellitus type: type 2 Diabetes mellitus complication detail: without coma Qualified Code(s): E11.10 - Type 2 diabetes mellitus with ketoacidosis without coma Category: Medical Code(s): E11.10 - Type 2 diabetes mellitus with ketoacidosis without coma (3) Diabetes mellitus, new onset Status: Acute Category: Medical Code(s): E11.9 - Type 2 diabetes mellitus without complications (4) Pneumonia due to COVID-19 virus Status: Acute Category: Medical Code(s): U07.1 - COVID-19; J12.82 - Pneumonia due to coronavirus disease 2019 (5) Mild persistent asthma Status: Acute Category: Medical Code(s): J45.30 - Mild persistent asthma, uncomplicated (6) Essential hypertension Status: Acute Category: Medical Code(s): I10 - Essential (primary) hypertension - Assessment and plan all Dx Assessment and Plan for all problems:: 1. Continue Remdesivir baricitinib for patient's COVID-19 pneumonia with respiratory failure 2. While patient's CRP is trended down I am going to adjust steroids to see if that can help with patient's hypoxia. Patient be given Solu-Medrol 60 mg every 6 over the next 24 hours 3. Increase patient's Lantus as hyperglycemia persists and may worsen with adjustment of steroids 4. Encourage ambulation
[2021-07-07 09:05] LABS: Eosinophils % 1 % (0-3); Lymphocytes % 16 % (10-50); Monocytes % 5 % (2-9); Neutrophils % 78 % (42-76); Total Cells Counted 100
[2021-07-07 09:06] LABS: Platelet Estimate Slight Increase; RBC Morphology Normal
[2021-07-07 16:10] LABS: Vancomycin,Trough 12.8 ug/mL (5.0-10.0)
[2021-07-07 16:24] LABS: POC Glucose,Bedside 149 (70-110)
[2021-07-07 16:46] LABS: POC Glucose,Bedside 251 (70-110)
[2021-07-07 16:46] LABS: POC Glucose,Bedside 507 (70-110)
[2021-07-07 16:46] LABS: POC Glucose,Bedside 314 (70-110)
[2021-07-08] VITALS (11 sets, daily range): BP systolic 121–150; BP diastolic 68–89; PULSE 81–101; RESP 18–22; TEMP 36.6–37; O2SAT 88–94; BMI 43.0
--- NOTE | 2021-07-08 05:01 | PC.NURSE ---
pt A&Ox4, has been pleasant t/o shift, has been titrated to 6L with O2 sats 94% on 6L, no complaints of SOA or pain this shift, IV changed this shift, 20G left wrist placed, 18 R AC d/c, pt has had 300 mL out, plus 2 unmeasured voids
[2021-07-08 07:14] LABS: Basophils # 0.2 K/mm3 (0-0.2); Basophils % 1.1 % (0.1-2.0); Hematocrit 39.3 % (42.0-52.0); Hemoglobin 13.8 g/dL (14.1-18.0); Lymphocytes # 2.1 K/mm3 (0.7-4.5); Lymphocytes % 10.6 % (10-50); Mean Corpuscular HGB Conc 35.1 g/dL (31.8-35.4); Mean Corpuscular Hemoglobin 29.7 pg (27.0-31.2); Mean Corpuscular Volume 84.7 fl (80-94); Mean Platelet Volume 8.5 fl (7.4-10.4); Monocytes # 0.8 K/mm3 (0.1-1.0); Neutrophils # 16.9 K/mm3 (1.8-7.8); Neutrophils % 84.3 % (37.0-80.0); Platelet Count 532 K/mm3 (142-424); Red Blood Count 4.64 M/mm3 (4.60-6.20); Red Cell Distribution Width 13.4 % (11.5-17.5); White Blood Count 20.1 K/mm3 (4.8-10.8)
[2021-07-08 07:20] LABS: MANUAL DIFFERENTIAL MANUAL DIFFERENTIAL (MANUAL DIFF)
[2021-07-08 07:43] LABS: Albumin Level 3.5 g/dl (3.5-5.0); Albumin/Globulin Ratio 1.1 (1.1-1.8); Alkaline Phosphatase 94 U/L (38-126); Anion Gap 8.4 mEq/L (5-15); Aspartate Amino Transferase 48 U/L (17-59); Bilirubin,Total 0.6 mg/dl (0.2-1.3); Blood Urea Nitrogen 26 mg/dl (9-20); Carbon Dioxide 29 mmol/L (22.0-30.0); Chloride 95 mmol/L (98-107); Creatinine Clearance Estimated 100 mL/min (50-200); Estimated Glomerular Filt Rate 102 ml/min (>60); GFR (African American) 124 ML/MIN (>60); Globulin 3.2 g/dL (1.3-3.2); Glucose 354 mg/dl (74-100); Potassium 4.4 mmoL/L (3.5-5.1); Sodium 128 mmol/L (136-145); Total Protein,Serum 6.7 g/dl (6.3-8.2)
--- NOTE | 2021-07-08 08:06 | HMH.ACPN2 ---
Internal Medicine - PN: Subj *Date: 07/08/21 *Time: 08:06 Interval history: Patient has no complaints. No acute events. Patient has remained in the low to mid 90s on 6 L for the last 24 hours. He continues to deny dyspnea. Cough is dry and minimal Exam Vital signs and Labs for Last 24 Hours: Temp Pulse Resp BP Pulse Ox 98.6 F 99 H 22 150/86 H 91 L 07/08/21 07:49 07/08/21 07:49 07/08/21 07:49 07/08/21 07:49 07/08/21 07:49 Laboratory Results - last 24 hr 07/05/21 21:12: POC Glucose 507 H* 07/06/21 05:07: POC Glucose 251 H 07/07/21 06:13: POC Glucose 149 H 07/07/21 06:51: Total Counted 100, Neutrophils % (Manual) 78 H, Lymphocytes % (Manual) 16, Monocytes % (Manual) 5, Eosinophils % (Manual) 1, Platelet Estimate Slight increase, RBC Morphology Normal 07/07/21 11:08: POC Glucose 314 H* 07/07/21 15:12: Vancomycin Trough 12.8 H 07/08/21 06:52: Sodium 128 L, Potassium 4.4, Chloride 95 L, Carbon Dioxide 29, Anion Gap 8.4, BUN 26 H, Creatinine 0.80, Estimated Creat Clear 100, Estimated GFR 102, Est GFR ( Amer) 124, Glucose 354 H, Calcium 10.0, Total Bilirubin 0.6, AST 48, Alkaline Phosphatase 94, Total Protein 6.7, Albumin 3.5, Globulin 3.2, Albumin/Globulin Ratio 1.1 07/08/21 06:52: WBC 20.1 H*, RBC 4.64, Hgb 13.8 L, Hct 39.3 L, MCV 84.7, MCH 29.7, MCHC 35.1, RDW 13.4, Plt Count 532 H, MPV 8.5, Neut % (Auto) 84.3 H, Lymph % (Auto) 10.6, [place] % (Auto) 4.0, Eos % (Auto) 0.0 L, Baso % (Auto) 1.1, Neut # (Auto) 16.9 H, Lymph # (Auto) 2.1, [place] # (Auto) 0.8, Eos # (Auto) 0.0, Baso # (Auto) 0.2 I & O for Last 24 hours: Intake & Output 07/05/21 07/06/21 07/07/21 07/08/21 11:59 11:59 11:59 11:59 Intake Total 2400 / 2400 1760 / 1760 960 / 960 1320 / 1320 Output Total 1500 / 1500 300 / 300 Balance 900 / 900 1760 / 1760 960 / 960 1020 / 1020 Weight 235 lb 14.314 oz 262 lb 269 lb 5.772 oz 274 lb 6.4 oz Narrative: Patient looks comfortable. Heart has a regular rate and rhythm. Lungs are distant with scattered rales. Abdomen is obese. Lower extremities have no edema. Blood sugars remained in the 300s due to steroids Assessment and Plan (1) Respiratory failure with hypoxia Status: Acute Qualifiers: Chronicity: acute Qualified Code(s): J96.01 - Acute respiratory failure with hypoxia Category: Medical Code(s): J96.91 - Respiratory failure, unspecified with hypoxia (2) DKA (diabetic ketoacidosis) Status: Resolved Qualifiers: Diabetes mellitus type: type 2 Diabetes mellitus complication detail: without coma Qualified Code(s): E11.10 - Type 2 diabetes mellitus with ketoacidosis without coma Category: Medical Code(s): E11.10 - Type 2 diabetes mellitus with ketoacidosis without coma (3) Diabetes mellitus, new onset Status: Acute Category: Medical Code(s): E11.9 - Type 2 diabetes mellitus without complications (4) Pneumonia due to COVID-19 virus Status: Acute Category: Medical Code(s): U07.1 - COVID-19; J12.82 - Pneumonia due to coronavirus disease 2019 (5) Mild persistent asthma Status: Acute Category: Medical Code(s): J45.30 - Mild persistent asthma, uncomplicated (6) Essential hypertension Status: Acute Category: Medical Code(s): I10 - Essential (primary) hypertension - Assessment and plan all Dx Assessment and Plan for all problems:: 1. If patient can remain stable without an increase in supplemental oxygen over an additional 24 hours patient will be discharged home 2. Continue Remdesivir, Solu-Medrol, baricitinib 3. Fungal testing still pending. Sputum culture shows normal respiratory saurabh 4. White blood cell count has increased slightly likely secondary to steroids
[2021-07-08 08:16] LABS: Alanine Aminotransferase 50 U/L (12-78)
--- NOTE | 2021-07-08 09:51 | HMH.PHACONS ---
- Pharmacy Consult Date: 07/08/21 Time: 09:52 Referring provider: DR. WETZEL Reason for Consult:: VANCOMYCIN TROUGH LEVEL Allergies and ADEs:: Allergies Allergy/AdvReac Type Severity Reaction Status Date / Time atorvastatin [From Lipitor] Allergy Mild Hives Verified 05/14/21 09:58 Home Medications:: Home Medications Medication Instructions Recorded Confirmed Type allopurinoL [Allopurinol 300mg 300 mg PO DAILY 04/21/20 06/29/21 History tablet] Cyanocobalamin/Folic Acid [Vitamin 1 each PO DAILY 04/28/20 06/29/21 History M10-Txaqf Acid Tablet] Fenofibrate Nanocrystallized 145 mg PO DAILY 04/28/20 06/29/21 History [Fenofibrate] Loratadine [Claritin] 10 mg PO DAILY 04/28/20 06/29/21 History meloxicam 15 mg tablet 15 mg PO DAILY tab 05/14/21 06/29/21 History Albuterol Sulfate [Albuterol 1 inh INHALATION QIDP PRN 06/29/21 06/29/21 History Sulfate Hfa] Azelastine HCl [Azelastine Nasal 1 spray INTRANASAL BID 06/29/21 06/29/21 History Meredith 30mL Bottle] Azithromycin [Z-Sumanth 250mg Tab] 250 mg PO UD DOSE PK 06/29/21 06/29/21 History Fluticasone Propion/Salmeterol 1 puff INHALATION BID 06/29/21 06/29/21 History [Fluticasone-Salmeterol 100-50] Fluticasone Propionate 1 spray INTRANASAL DAILY 06/29/21 06/29/21 History Losartan Potassium [Cozaar 50mg 50 mg PO DAILY 06/29/21 06/29/21 History Tablets] Metoprolol Succinate [Metoprolol 25 mg PO HS 06/29/21 06/29/21 History Succinate 25mg Tablet*] predniSONE [Prednisone 10mg Tab 10 mg PO UD DOSE PK 06/29/21 06/29/21 History Dose-Pack] Height: 1.7 m Weight: 124.466 kg Laboratory Results:: Laboratory Results - last 24 hr 07/05/21 21:12: POC Glucose 507 H* 07/06/21 05:07: POC Glucose 251 H 07/07/21 06:13: POC Glucose 149 H 07/07/21 11:08: POC Glucose 314 H* 07/07/21 15:12: Vancomycin Trough 12.8 H 07/08/21 06:52: Sodium 128 L, Potassium 4.4, Chloride 95 L, Carbon Dioxide 29, Anion Gap 8.4, BUN 26 H, Creatinine 0.80, Estimated Creat Clear 100, Estimated GFR 102, Est GFR ( Amer) 124, Glucose 354 H, Calcium 10.0, Total Bilirubin 0.6, AST 48, ALT 50, Alkaline Phosphatase 94, Total Protein 6.7, Albumin 3.5, Globulin 3.2, Albumin/Globulin Ratio 1.1 07/08/21 06:52: WBC 20.1 H*, RBC 4.64, Hgb 13.8 L, Hct 39.3 L, MCV 84.7, MCH 29.7, MCHC 35.1, RDW 13.4, Plt Count 532 H, MPV 8.5, Neut % (Auto) 84.3 H, Lymph % (Auto) 10.6, [place] % (Auto) 4.0, Eos % (Auto) 0.0 L, Baso % (Auto) 1.1, Neut # (Auto) 16.9 H, Lymph # (Auto) 2.1, [place] # (Auto) 0.8, Eos # (Auto) 0.0, Baso # (Auto) 0.2 Medical History: Reports:: Asthma, Gastroesophageal Reflux Disease(GERD), Hyperlipidemia, Hypertension Denies:: Cancer, Diabetes Mellitus Type 1, Diabetes Mellitus Type 2, Internal Pacemaker, MRSA, Seizures Assessment and Plan (1) Respiratory failure with hypoxia Status: Acute Qualifiers: Chronicity: acute Qualified Code(s): J96.01 - Acute respiratory failure with hypoxia Category: Medical Code(s): J96.91 - Respiratory failure, unspecified with hypoxia (2) DKA (diabetic ketoacidosis) Status: Resolved Qualifiers: Diabetes mellitus type: type 2 Diabetes mellitus complication detail: without coma Qualified Code(s): E11.10 - Type 2 diabetes mellitus with ketoacidosis without coma Category: Medical Code(s): E11.10 - Type 2 diabetes mellitus with ketoacidosis without coma (3) Diabetes mellitus, new onset Status: Acute Category: Medical Code(s): E11.9 - Type 2 diabetes mellitus without complications (4) Pneumonia due to COVID-19 virus Status: Acute Category: Medical Code(s): U07.1 - COVID-19; J12.82 - Pneumonia due to coronavirus disease 2019 (5) Mild persistent asthma Status: Acute Category: Medical Code(s): J45.30 - Mild persistent asthma, uncomplicated (6) Essential hypertension Status: Acute Category: Medical Code(s): I10 - Essential (primary) hypertension - Assessment and plan all Dx Assessment and Plan for all
[2021-07-08 09:52] LABS: Lymphocytes % 13 % (10-50); Monocytes % 4 % (2-9); Neutrophils % 83 % (42-76); Platelet Estimate Marked Increase; Total Cells Counted 100
--- NOTE | 2021-07-08 09:54 | HMH.ACPN ---
Internal Medicine - PN: Subj *Date: 07/08/21 *Time: 09:54 Exam Vital signs and Labs for Last 24 Hours: Temp Pulse Resp BP Pulse Ox 98.6 F 99 H 22 150/86 H 91 L 07/08/21 07:49 07/08/21 07:49 07/08/21 07:49 07/08/21 07:49 07/08/21 07:49 Laboratory Results - last 24 hr 07/05/21 21:12: POC Glucose 507 H* 07/06/21 05:07: POC Glucose 251 H 07/07/21 06:13: POC Glucose 149 H 07/07/21 11:08: POC Glucose 314 H* 07/07/21 15:12: Vancomycin Trough 12.8 H 07/08/21 06:52: Sodium 128 L, Potassium 4.4, Chloride 95 L, Carbon Dioxide 29, Anion Gap 8.4, BUN 26 H, Creatinine 0.80, Estimated Creat Clear 100, Estimated GFR 102, Est GFR ( Amer) 124, Glucose 354 H, Calcium 10.0, Total Bilirubin 0.6, AST 48, ALT 50, Alkaline Phosphatase 94, Total Protein 6.7, Albumin 3.5, Globulin 3.2, Albumin/Globulin Ratio 1.1 07/08/21 06:52: WBC 20.1 H*, RBC 4.64, Hgb 13.8 L, Hct 39.3 L, MCV 84.7, MCH 29.7, MCHC 35.1, RDW 13.4, Plt Count 532 H, MPV 8.5, Neut % (Auto) 84.3 H, Lymph % (Auto) 10.6, [place] % (Auto) 4.0, Eos % (Auto) 0.0 L, Baso % (Auto) 1.1, Neut # (Auto) 16.9 H, Lymph # (Auto) 2.1, [place] # (Auto) 0.8, Eos # (Auto) 0.0, Baso # (Auto) 0.2, Total Counted 100, Neutrophils % (Manual) 83 H, Lymphocytes % (Manual) 13, Monocytes % (Manual) 4, Platelet Estimate Marked increase I & O for Last 24 hours: Intake & Output 07/05/21 07/06/21 07/07/21 07/08/21 23:59 23:59 23:59 23:59 Intake Total 2970 / 2970 960 / 960 1200 / 1200 480 / 480 Output Total 1200 / 1200 300 / 300 Balance 1770 / 1770 960 / 960 900 / 900 480 / 480 Weight 107 kg 118.841 kg 122.18 kg 124.466 kg Assessment and Plan (1) Respiratory failure with hypoxia Status: Acute Qualifiers: Chronicity: acute Qualified Code(s): J96.01 - Acute respiratory failure with hypoxia Category: Medical Code(s): J96.91 - Respiratory failure, unspecified with hypoxia (2) DKA (diabetic ketoacidosis) Status: Resolved Qualifiers: Diabetes mellitus type: type 2 Diabetes mellitus complication detail: without coma Qualified Code(s): E11.10 - Type 2 diabetes mellitus with ketoacidosis without coma Category: Medical Code(s): E11.10 - Type 2 diabetes mellitus with ketoacidosis without coma (3) Diabetes mellitus, new onset Status: Acute Category: Medical Code(s): E11.9 - Type 2 diabetes mellitus without complications (4) Pneumonia due to COVID-19 virus Status: Acute Category: Medical Code(s): U07.1 - COVID-19; J12.82 - Pneumonia due to coronavirus disease 2019 (5) Mild persistent asthma Status: Acute Category: Medical Code(s): J45.30 - Mild persistent asthma, uncomplicated (6) Essential hypertension Status: Acute Category: Medical Code(s): I10 - Essential (primary) hypertension The patient's infection will respond to the chosen ABx?: Yes Is the patient receiving the right drug, dose, and route?: Yes Could a more targeted ABx be ordered?: No
[2021-07-08 10:34] LABS: POC Glucose,Bedside 359 (70-110)
[2021-07-08 10:34] LABS: POC Glucose,Bedside 323 (70-110)
--- NOTE | 2021-07-08 11:50 | PC.NURSE ---
spoke with MD regarding pt fsbs 479. Administered 40u x1 per MD recommendation. Verified With CHRISSIE Bond
[2021-07-08 12:12] LABS: POC Glucose,Bedside 417 (70-110)
[2021-07-08 15:55] LABS: POC Glucose,Bedside 410 (70-110)
[2021-07-08 15:55] LABS: POC Glucose,Bedside 479 (70-110)
--- NOTE | 2021-07-08 18:18 | PC.NURSE ---
pt has done well through out the shift. He has tolerated 6lnc and has ambulated in the room. pt reports being in better spirits today and is looking forward to going home.
[2021-07-09] VITALS: BP 120/68; PULSE 89; RESP 24; TEMP 36.6; O2SAT 90
[2021-07-09 03:37] VITALS: BP 127/67; PULSE 87; RESP 18; TEMP 36.6; O2SAT 94
--- NOTE | 2021-07-09 04:24 | PC.NURSE ---
Pt. requested ativan for anxiety hs and has slept through most of night. No c/o n/v/d, pain or dizziness. C/o some soa and occasional dry cough. Lungs diminished bilat.
[2021-07-09 05:00] VITALS: BMI 42.3
--- NOTE | 2021-07-09 05:12 | PC.NURSE ---
Pt. has not c/o n/v/d, dizziness or pain this shift. Pt. reports mild soa with movement. Intermittent dry cough noted.
[2021-07-09 05:37] VITALS: PULSE 74; O2SAT 92
[2021-07-09 06:46] LABS: Alanine Aminotransferase 45 U/L (12-78); Albumin Level 3.5 g/dl (3.5-5.0); Albumin/Globulin Ratio 1.2 (1.1-1.8); Alkaline Phosphatase 88 U/L (38-126); Anion Gap 10.2 mEq/L (5-15); Aspartate Amino Transferase 32 U/L (17-59); Bilirubin,Total 0.7 mg/dl (0.2-1.3); Blood Urea Nitrogen 28 mg/dl (9-20); Calcium 9.4 mg/dl (8.4-10.2); Carbon Dioxide 27 mmol/L (22.0-30.0); Chloride 97 mmol/L (98-107); Creatinine Clearance Estimated 100 mL/min (50-200); Estimated Glomerular Filt Rate 102 ml/min (>60); GFR (African American) 124 ML/MIN (>60); Glucose 270 mg/dl (74-100); Potassium 4.2 mmoL/L (3.5-5.1); Sodium 130 mmol/L (136-145); Total Protein,Serum 6.5 g/dl (6.3-8.2)
[2021-07-09 06:52] LABS: C-Reactive Protein 10.9 mg/L (0-4)
--- NOTE | 2021-07-09 07:34 | HMH.DCSUM ---
General - General Admission date:: 06/29/21 Discharge date: 07/09/21 HPI HPI: 51-year-old male diagnosed with COVID-19 infection earlier in the week presented to the emergency department with worsening symptoms. Patient initially presented to the office on June 22 with URI symptoms including sore throat and was treated with an antibiotic. He returned to the office on June 26 with continued symptoms and no improvement. COVID-19 testing was performed which returned positive. Patient was given monoclonal antibody injections subcutaneously in the office on June 28. He presented to the emergency department on June 29 with worsening symptoms and shortness of breath. Patient was hypoxic on presentation and responded to high flow supplemental oxygen which improved O2 sats to the 90s. Patient was found to be significantly hyperglycemic. He has no personal history of diabetes but had been on steroids for the last week. In addition to his acute respiratory failure patient was in DKA with his new onset of diabetes. Patient has been admitted for respiratory support and treatment of COVID-19 pneumonia and new onset diabetes. Patient has been started on insulin drip. Hospital Course Hospital Course: Patient was admitted for treatment of COVID-19 pneumonia with acute respiratory failure. Patient was admitted on high flow nasal cannula and placed on dexamethasone, Remdesivir, baricitinib as well as nutritional supplements per COVID-19 treatment protocol. Patient had a 10-day hospitalization and over the course of 10 days was gradually weaned from high flow nasal cannula back to simple nasal cannula. The ability to wean oxygen seemed to stall briefly at approximately 6 L/min via nasal cannula. Patient developed an elevated white blood cell count. He had been admitted and placed on Levaquin and antibiotics were changed to add vancomycin due to the appearance of abnormal sputum culture. Ultimately sputum culture was interpreted as normal respiratory saurabh. Patient felt well and was actually ambulating without significant dyspnea on 6 L. This kept O2 sats in the 90s. However due to lack of improvement patient steroids were adjusted and on day 8 of hospitalization patient was changed from dexamethasone to IV Solu-Medrol 60 mg every 6 hours. Patient was able to wean oxygen further after a change in steroids. On the patient had improved enough medically for discharge to home with continued supplemental oxygen use. Home oxygen concentrator was arranged and patient will need to start his home oxygen therapy at 6 L/min with weaning to keep O2 sats greater than 90. Patient was found to be a new lead diagnosed diabetic on admission. He had been on steroids as an outpatient which did explain some hyperglycemia but A1c would indicate patient has been a diabetic for longer period of time. Patient was initially started on insulin drip due to meeting DKA diagnosis criteria. Hypoglycemia resolved in approximately 24 hours and patient was transitioned to a basal bolus regimen of insulin. Steroids kept the patient's blood sugars elevated which required increasing the dose of patient's insulin. Actos 15 mg was added as well. Patient will continue Actos and basal bolus regimen insulin at discharge. Patient was restarted on home medications during hospitalization. Patient will follow up in my office on July 13. Objective Vital signs: Temp Pulse Resp BP Pulse Ox 97.8 F 74 18 127/67 92 L 07/09/21 03:37 07/09/21 05:37 07/09/21 03:37 07/09/21 03:37 07/09/21 05:37 no acute distress - *Routine HEENT Exam Head: Present: normocephalic Eye: Present: EOMI, PERRL ENT: Present: mucous membranes moist - *Routine Neck Exam Present: supple - *Routine Respiratory Exam Present: decreased breath sounds, CTA bilaterally - *Routine Cardiovascular Exam Present: RRR - *Routine Abdominal Exam Present: soft, normoactive bow
[2021-07-09 07:47] VITALS: BP 114/71; PULSE 97; RESP 18; TEMP 37.1; O2SAT 92
[2021-07-09 08:51] LABS: POC Glucose,Bedside 374 (70-110)
[2021-07-09 09:00] VITALS: O2SAT 85
--- NOTE | 2021-07-09 09:53 | SW/DCPLANNER ---
PATIENT IS DISCHARGING HOME TODAY AND WILL BE NEEDING HOME 02... THIS WAS SET UP WITH [facility] AND A PORTABLE TANK WILL BE DELIVERED TO HIS ROOM PRIOR TO DISCHARGING HOME LATER TODAY.. PATIENT WILL FOLLOW UP WITH DR WETZEL IN THE OFFICE SETTING.
[2021-07-09 10:14] VITALS: PULSE 107; PULSE 113; O2SAT 91
[2021-07-10 03:48] LABS: POC Glucose,Bedside 287 (70-110)
== END 2021-07-09 11:41 | disposition home or self-care (01) | DRG 177 ==
LOC: ER 15:11 → 2ND 15:33 → ICU 07-02 23:01 → 2ND 07-05 04:32
PROVIDERS: Admitting Provider Family Medicine; Emergency Provider Emergency Medicine; PCP Nurse Practitioner Family; Visit Provider Family Medicine
DX: U07.1 COVID-19 (principal); E11.10 Type 2 diabetes mellitus with ketoacidosis without coma; J96.01 Acute respiratory failure with hypoxia; J12.82 Pneumonia due to coronavirus disease 2019; Z79.4 Long term (current) use of insulin; I10 Essential (primary) hypertension; K21.9 Gastro-esophageal reflux disease without esophagitis; Z79.899 Other long term (current) drug therapy; Z88.8 Allergy status to other drugs, medicaments and biological substances; J45.30 Mild persistent asthma, uncomplicated; Z79.51 Long term (current) use of inhaled steroids
CPT/HCPCS: 36415; 71045; 71275; 80048; 80053; 80076; 80202; 82009; 82803; 82947; 82962; 83605; 83735; 84100; 84145; 85007; 85025; 85378; 86140; 87040; 87070; 87205; 87449; 94640; 94760; 94761; 96365; 96366; 96367; 99284; C9803; J1956; J3370; Q9967; U0003; U0005

== ENCOUNTER → 2021-08-09 15:07 | Outpatient (CLI) | payer OTHER, SELFPAY ==
--- NOTE | 2021-08-09 15:37 | MR_ITS ---
PROCEDURE INFORMATION: Exam: MR Right Upper Extremity Joint Without Contrast; Shoulder Exam date and time: 08/09/2021 3:37 PM Age: 51 years old Clinical indication: Pain; Shoulder; Right; Additional info: Right shoulder pain TECHNIQUE: Imaging protocol: MR of the Right upper extremity without contrast. Exam focused on the shoulder. COMPARISON: CR XR SHOULDER RT MIN 2V 12/21/2019 10:44 AM FINDINGS: Limitations: The lateral shoulder soft tissues are incompletely imaged. The DEJON sequence (series 8) is labeled as being coronal but is a sagittal sequence. Motion artifact with fast sequences obtained that have lower than typical resolution. Bones and cartilage: Surgical tracks in the humeral head are consistent with prior rotator cuff repair. The undersurface of the acromion is flattened, which may be developmental or due to prior acromioplasty. The humeral head has mild superior subluxation. There is significant cartilage thinning along the posteroinferior glenohumeral joint (series 3/image 16). Joint spaces: A mild effusion involves the glenohumeral joint. Joint fluid extends through the full thickness rotator cuff tear into the subacromial-subdeltoid bursa. There is mild primary osteoarthritis of the acromioclavicular joint. Glenoid labrum: Multifocal abnormal signal and morphology of the labrum is consistent with tearing and may be degenerative. Supraspinatus tendon: A full-thickness retear involves the majority of the previously repaired supraspinatus tendon. There are likely intermittent thin fibers remaining intact. The tendon is retracted up to 1.7 cm. Infraspinatus tendon: A full-thickness retear involves approximately the upper 7 mm of the infraspinatus tendon with moderate tendinosis of the remaining intact in tendon. Subscapularis tendon: The subscapularis tendon is markedly thin with a diameter of approximately 1 mm at the level of the humeral head, being intermittently nonvisualized. This likely represents a combination of full-thickness and near full-thickness tearing. Teres minor tendon: No tear or significant tendinosis involves the teres minor tendon. Tendon of biceps brachii: The intra-articular portion of the long head of the biceps tendon is not visualized. Nonvisualization may be due to rupture, severe tendinosis or prior tenodesis. Glenohumeral ligaments: The inferior glenohumeral ligament has intermediate signal intensity suggesting prior injury. Muscles: The supraspinatus muscle demonstrates overall mild loss of bulk. The subscapularis muscle demonstrates grade 3 (out of 4) muscle atrophy. The remainder of the rotator cuff musculature demonstrates no significant atrophy or edema. Soft tissues: Unremarkable. IMPRESSION: 1. Full-thickness supraspinatus tendon retear involving the majority of the tendon with up to 1.7 cm retraction and mild muscle atrophy. 2. Focal full-thickness retear involving approximately the upper 7 mm of the previously repaired infraspinatus tendon. 3. Poorly visualized diminutive subscapularis tendon likely representing a combination of full-thickness and near full-thickness tearing, with moderate muscle atrophy. 4. Predominantly non-visualized long head of the biceps tendon, which may be due to prior tenodesis, rupture, or severe tendinosis. 5. Multifocal tearing of the labrum, which may be degenerative. 6. Mild to moderate osteoarthritis of the glenohumeral joint.
== END ==
PROVIDERS: PCP Family Medicine; Visit Provider Orthopaedic Surgery
DX: M25.511 Pain in right shoulder (principal); M25.611 Stiffness of right shoulder, not elsewhere classified; Z98.890 Other specified postprocedural states
CPT/HCPCS: 73221

== ENCOUNTER → 2021-08-13 14:46 | Outpatient (CLI) | payer OTHER, SELFPAY | PROVIDERS: PCP Family Medicine; Visit Provider Internal Medicine Pulmonary Disease | DX: R06.00 Dyspnea, unspecified (principal) | CPT/HCPCS: 94762 ==

== ENCOUNTER → 2021-10-02 14:53 | Outpatient (CLI) | payer OTHER, SELFPAY ==
[2021-10-02 15:35] VITALS: PULSE 89; PULSE 92
== END ==
PROVIDERS: PCP Family Medicine; Visit Provider Internal Medicine Pulmonary Disease
DX: R06.09 Other forms of dyspnea (principal)
CPT/HCPCS: 94060; 94640; 94727; 94729

== ENCOUNTER → 2021-11-15 13:50 | Outpatient (CLI) | payer OTHER, SELFPAY ==
--- NOTE | 2021-11-15 13:51 | CA_ITS ---
APPROVED REPORT EXAM: Comprehensive 2D, Doppler, and color-flow Echocardiogram [employer]: Dora Shafer RVT Ht: 5 ft 7 in Wt: 281lbs BSA: 2.34 BP: 130/90 mmHg Indications: SOA,DM,OBESITY,ABN EKG,HX COVID 10/30 2D Dimensions LVOT 2.22 cm (M/F) 1.5-2.5 LA Volume 35.10 mL LA Volume Index 15.06 mL/m2 (M/F) 16-34 M-Mode Dimensions RVDd 2.46 cm (0.9-2.6) LA Diam 4.71 cm (1.9-4.0) LVDd 6.20 cm (3.5-5.7) Ao Diam 2.83 cm (2.0-3.7) LVDs 4.08 cm (3.5-5.7) IVSd 0.55 cm (0.6-1.1) PWd 0.85 cm (0.6-1.1) EF (Teich) 62.20% FS 34.20% EDV (Teich) 194.00 mL TAPSE 2.30 (<1.7) ESV (Teich) 73.40 mL LV Diastology E Decel Time 177.00 (160-240 msec) E/A Ratio 1.2 MED E' 5.00 (< 7 cm/sec) E'/MED E' Ratio 14.42 (>14) LAT E' 7.60 (<10 cm/sec) E/LAT E' Ratio 9.49 (>14) Aortic Valve AO Peak GR. 9.70 mmHg Mitral Valve MV E Max Lukas. 72.00 (40-130 cm/s) MV A Velocity 62.00 (40-130 cm/s) E/A Ratio 1.17 MV Decel. Time 177.00 (160-240 ms) MV PHT 52.00 ms Pulmonary Valve PV Peak Velocity 78.00 (50-150 cm/s) Tricuspid Valve TR P. Velocity 152.00 cm/s RAP Estimate 10.00 mmHg RVSP 19.20 mmHg Left Ventricle Left atrium is mildly enlarged, left ventricle is normal size, mild concentric left ventricular hypertrophy, estimated ejection fraction 55% with no regional wall motion abnormality, grade 1 diastolic dysfunction seen without tissue Doppler evidence of raise left atrial pressure. Right Ventricle Right atrium and right ventricle are mildly enlarged with normal contractility. Aortic Valve Aortic valve is minimally thickened and fibrosed, there is no aortic stenosis or aortic insufficiency. Mitral Valve Mitral valve is grossly normal, there is trace mitral regurgitation. Tricuspid Valve Tricuspid grossly normal, there is trace tricuspid regurgitation, tricuspid regurgitation jet velocity is inadequate for calculation of the right ventricular systolic pressure. Pulmonic Valve Pulmonic valve is poorly visualized. Great Vessels Aortic root is normal size. Inferior vena cava is normal size with normal spectral collapse. Pericardium No significant pericardial effusion noted. Conclusion 1. Mild biatrial enlargement, normal left ventricular size, mild concentric left ventricular hypertrophy, estimated ejection fraction 55% with no regional wall motion abnormality, grade 1 diastolic dysfunction seen without tissue Doppler evidence of raise left atrial pressure. 2. Mildly enlarged right ventricle with normal contractility. 3. Trace mitral and tricuspid regurgitation. 4. No significant pericardial effusion. 5. Inferior vena cava normal size with normal inspiratory collapse. Electronically signed by : Benjamin Méndez MD 11/16/2021 16:51:58
== END ==
PROVIDERS: PCP Nurse Practitioner Family; Visit Provider Nurse Practitioner Family
DX: R06.00 Dyspnea, unspecified (principal); I10 Essential (primary) hypertension; R94.31 Abnormal electrocardiogram [ECG] [EKG]; K21.9 Gastro-esophageal reflux disease without esophagitis; E66.01 Morbid (severe) obesity due to excess calories; Z68.41 Body mass index [BMI] 40.0-44.9, adult
CPT/HCPCS: 93306

== ENCOUNTER → 2022-01-04 09:52 | Outpatient (CLI) | payer OTHER, SELFPAY ==
--- NOTE | 2022-01-04 09:59 | IR_ITS ---
FINAL REPORT CLINICAL HISTORY: CHRONIC RT SHOULDER PAIN FINDINGS: RIGHT SHOULDER ARTHROGRAM HISTORY: Right shoulder pain, fell on shoulder in January 2021. ATTENDING PHYSICIAN: Dr. Schreiber. PHYSICIAN T[employer]ARM ATTENDANT: Leila Bliss PA-C. PROCEDURE: Informed consent was obtained from the patient. A timeout procedure was performed prior to beginning. Fluoroscopy was utilized to localize the right shoulder joint space. The skin was marked appropriately. Patient was prepped and draped in the usual sterile fashion over the right shoulder. Skin was anesthetized with 1% Lidocaine. Access to the joint space was obtained using a 3-1/2 inch spinal needle. A small amount of Isovue contrast was injected to confirm needle placement. This was confirmed. Subsequently, approximately 20 mL of dilute gadolinium were gently injected into the joint space. The patient tolerated the procedure well and left the department in good condition. 2 images were saved. Fluoroscopy time:24 seconds. IMPRESSION: Technically successful right shoulder injection for MR arthrogram. Please see the MRI report. Reviewed, Interpreted and Dictated by Gabriela Schreiber MD Transcribed by Leila Bliss PA-C Authenticated by Gabriela Schreiber MD on 01/04/2022 01:01:13 PM [facility]
--- NOTE | 2022-01-04 10:00 | MR_ITS ---
FINAL REPORT TECHNIQUE: Multiplanar and multisequence imaging of right shoulder was obtained after the intra-articular injection of a dilute gadolinium contrast solution. CLINICAL HISTORY: CHRONIC RT SHOULDER PAIN COMPARISON: 08/09/2021 FINDINGS: Bones and joints: There are postoperative changes from prior rotator cuff repair. There is no fracture or dislocation. There is AC joint degenerative disease. No AC separation is identified. Rotator cuff: There is no full-thickness rotator cuff tendon tear. There is no extension of contrast in the subdeltoid bursa. There is no fatty atrophy of the rotator cuff muscles. Labrum: The biceps labral complex is not identified. The patient may have had prior tenodesis or biceps tendon tear. No convincing labral tear is identified. The glenohumeral ligaments appear intact. Other: There is no joint effusion. Remaining soft tissues are within normal limits. IMPRESSION: Postoperative changes from prior rotator cuff repair. No full-thickness supraspinatus or infraspinatus tear is identified. Probable biceps tenodesis although biceps tendon tear is not excluded. Reviewed, Interpreted and Dictated by Gabriela Schreiber MD Transcribed by Edwige Melara Authenticated by Gabriela Schreiber MD on 01/04/2022 01:01:37 PM [facility]
== END ==
PROVIDERS: PCP Nurse Practitioner Family; Visit Provider Orthopaedic Surgery
DX: M25.511 Pain in right shoulder (principal); G89.29 Other chronic pain
CPT/HCPCS: 73040; 73222; Q9967

== ENCOUNTER → 2022-04-26 09:47 | Outpatient (CLI) | payer OTHER, SELFPAY | PROVIDERS: PCP Nurse Practitioner Family; Visit Provider Internal Medicine Pulmonary Disease | DX: R06.00 Dyspnea, unspecified (principal); G47.34 Idiopathic sleep related nonobstructive alveolar hypoventilation | CPT/HCPCS: 94060; 94618; 94726; 94729; 94762 ==

== ENCOUNTER → 2022-05-20 11:04 | Outpatient (CLI) | payer OTHER, SELFPAY ==
[2022-05-20 11:45] LABS: Basophils # 0.2 K/mm3 (0-0.2); Eosinophils # 0.2 K/mm3 (0.0-0.4); Eosinophils % 2.4 % (0.1-12.0); Hematocrit 50.8 % (42.0-52.0); Hemoglobin 17.1 g/dL (14.1-18.0); Lymphocytes # 3.9 K/mm3 (0.7-4.5); Lymphocytes % 39.7 % (10-50); Mean Corpuscular HGB Conc 33.6 g/dL (31.8-35.4); Mean Corpuscular Hemoglobin 29.1 pg (27.0-31.2); Mean Corpuscular Volume 86.6 fl (80-94); Mean Platelet Volume 7.6 fl (7.4-10.4); Monocytes # 0.7 K/mm3 (0.1-1.0); Monocytes % 6.8 % (1.7-9.3); Neutrophils # 4.9 K/mm3 (1.8-7.8); Neutrophils % 49.1 % (37.0-80.0); Platelet Count 257 K/mm3 (142-424); Red Blood Count 5.87 M/mm3 (4.60-6.20); Red Cell Distribution Width 14.1 % (11.5-17.5); White Blood Count 9.9 K/mm3 (4.8-10.8)
[2022-05-20 12:09] LABS: Chloride 103 mmol/L (98-107); Sodium 142 mmol/L (136-145)
[2022-05-20 12:10] LABS: Potassium 4.4 mmoL/L (3.5-5.1)
[2022-05-20 12:12] LABS: Alanine Aminotransferase 37 U/L (12-78); Albumin Level 4.7 g/dl (3.5-5.0); Alkaline Phosphatase 61 U/L (38-126); Anion Gap 15.4 mEq/L (5-15); Aspartate Amino Transferase 41 U/L (17-59); Bilirubin,Direct 0.2 mg/dl (0.0-0.4); Bilirubin,Indirect 0.3 mg/dL (0.0-0.9); Bilirubin,Total 0.5 mg/dl (0.2-1.3); Bilirubin,Unconjugated 0.3 mg/dL (0.0-1.1); Blood Urea Nitrogen 11 mg/dl (9-20); Carbon Dioxide 28 mmol/L (22.0-30.0); Cholesterol 206 mg/dl (140-200); Estimated Glomerular Filt Rate 71 ml/min (>60); GFR (African American) 86 ML/MIN (>60); Total Protein,Serum 7.2 g/dl (6.3-8.2); Triglycerides 232 mg/dl (30-150); VLDL Cholesterol 46 mg/dL (0-40)
[2022-05-20 12:13] LABS: Calcium 9.9 mg/dl (8.4-10.2); Glucose 96 mg/dl (74-100); HDL Cholesterol 52 mg/dl (40-60); Magnesium 1.8 mg/dl (1.6-2.3)
[2022-05-20 12:24] LABS: Direct LDL Cholesterol 126.32 mg/dL (100-129)
[2022-05-20 12:44] LABS: Thyroid Stimulating Hormone 1.75 uIU/mL (0.465-4.68)
[2022-05-20 13:06] LABS: Free T4 (Free Thyroxine) 1.04 ng/dl (0.78-2.19)
== END ==
PROVIDERS: PCP Nurse Practitioner Family; Visit Provider Physician Assistant
DX: R06.00 Dyspnea, unspecified (principal); I10 Essential (primary) hypertension; E66.01 Morbid (severe) obesity due to excess calories; Z68.41 Body mass index [BMI] 40.0-44.9, adult
CPT/HCPCS: 36415; 80048; 80061; 80076; 83735; 84439; 84443; 85025

== ENCOUNTER → 2022-08-27 19:52 | Outpatient (CLI) | payer OTHER, SELFPAY | PROVIDERS: PCP Nurse Practitioner Family; Visit Provider Internal Medicine Pulmonary Disease | DX: G47.30 Sleep apnea, unspecified (principal); G47.36 Sleep related hypoventilation in conditions classified elsewhere; J44.9 Chronic obstructive pulmonary disease, unspecified | CPT/HCPCS: 95810 ==

== ENCOUNTER → 2022-09-20 14:49 | Outpatient (CLI) | payer OTHER, SELFPAY | PROVIDERS: PCP Nurse Practitioner Family; Visit Provider Nurse Practitioner Family | DX: R06.09 Other forms of dyspnea (principal); J98.4 Other disorders of lung; J45.40 Moderate persistent asthma, uncomplicated | CPT/HCPCS: 94618 ==

== ENCOUNTER → 2022-12-11 20:18 | Outpatient (CLI) | payer OTHER, SELFPAY | PROVIDERS: PCP Nurse Practitioner Family; Visit Provider Nurse Practitioner Family | DX: G47.33 Obstructive sleep apnea (adult) (pediatric) (principal); R09.02 Hypoxemia | CPT/HCPCS: 95811 ==

== ENCOUNTER → 2023-02-24 10:00 | Outpatient (CLI) | payer OTHER, SELFPAY ==
[2023-02-24 10:30] VITALS: PULSE 78; PULSE 80
== END ==
PROVIDERS: PCP Nurse Practitioner Family; Visit Provider Internal Medicine Pulmonary Disease
DX: R06.02 Shortness of breath (principal)
CPT/HCPCS: 94060; 94640

== ENCOUNTER → 2023-04-24 10:11 | Outpatient (POV) | payer OTHER, SELFPAY | PROVIDERS: Visit Provider Specialist/Technologist | DX: Z00.00 Encounter for general adult medical examination without abnormal findings (principal) ==

== ENCOUNTER → 2023-06-06 12:37 | Outpatient (CLI) | payer OTHER, SELFPAY ==
--- NOTE | 2023-06-06 12:58 | US_ITS ---
FINAL REPORT CLINICAL HISTORY: paresthesia of skin LE's, HTN, DM, hyperlipidemia, bilateral claudication, bilateral rest pain. COMPARISON: None FINDINGS: ANKLE-BRACHIAL PRESSURE INDICES Pressure indices are as follows: RIGHT LOWER EXTREMITY: Ankle-brachial pressure index: 1.4 Comments: Normal LEFT LOWER EXTREMITY: Ankle-brachial pressure index: 1.3 Comments: Normal IMPRESSION: No evidence of significant obstructive peripheral vascular disease of the lower extremities Reviewed, Interpreted and Dictated by Bayron Carcamo III, MD Transcribed by Florinda Tucker Authenticated and . [facility]
== END ==
PROVIDERS: PCP Nurse Practitioner Family; Visit Provider Nurse Practitioner Family
DX: R20.2 Paresthesia of skin (principal)
CPT/HCPCS: 93923

== ENCOUNTER → 2023-06-13 07:50 | Outpatient (CLI) | payer OTHER, SELFPAY | PROVIDERS: PCP Nurse Practitioner Family; Visit Provider Internal Medicine Pulmonary Disease | DX: R06.02 Shortness of breath (principal) | CPT/HCPCS: 94060; 94618; 94726; 94729 ==

== ENCOUNTER → 2023-06-24 13:53 | Outpatient (CLI) | payer OTHER, SELFPAY ==
[2023-06-24 14:22] LABS: Basophils # 0.1 K/mm3 (0-0.2); Basophils % 0.7 % (0.1-2.0); Eosinophils # 0.1 K/mm3 (0.0-0.4); Eosinophils % 0.7 % (0.1-12.0); Hematocrit 49.7 % (42.0-52.0); Hemoglobin 17.6 g/dL (14.1-18.0); Lymphocytes # 3.9 K/mm3 (0.7-4.5); Lymphocytes % 41.5 % (10-50); Mean Corpuscular HGB Conc 35.3 g/dL (31.8-35.4); Mean Corpuscular Hemoglobin 30.2 pg (27.0-31.2); Mean Corpuscular Volume 85.5 fl (80-94); Mean Platelet Volume 8.1 fl (7.4-10.4); Monocytes # 0.7 K/mm3 (0.1-1.0); Monocytes % 7.1 % (1.7-9.3); Neutrophils # 4.7 K/mm3 (1.8-7.8); Neutrophils % 50.1 % (37.0-80.0); Platelet Count 215 K/mm3 (142-424); Red Blood Count 5.81 M/mm3 (4.60-6.20); White Blood Count 9.4 K/mm3 (4.8-10.8)
[2023-06-24 14:55] LABS: Alanine Aminotransferase 56 U/L (12-78); Albumin Level 4.6 g/dl (3.5-5.0); Alkaline Phosphatase 60 U/L (38-126); Aspartate Amino Transferase 57 U/L (17-59); Bilirubin,Direct 0.3 mg/dl (0.0-0.4); Bilirubin,Indirect 0.1 mg/dL (0.0-0.9); Bilirubin,Total 0.4 mg/dl (0.2-1.3); Bilirubin,Unconjugated 0.1 mg/dL (0.0-1.1); Chol/HDL Ratio 5.8 (1-3.5); Cholesterol 256 mg/dl (140-200); HDL Cholesterol 44 mg/dl (40-60); Total Protein,Serum 7.4 g/dl (6.3-8.2); Triglycerides 394 mg/dl (30-150); VLDL Cholesterol 79 mg/dL (0-40)
[2023-06-24 15:05] LABS: Direct LDL Cholesterol 156.94 mg/dL (100-129)
== END ==
PROVIDERS: Nurse Practitioner Family; PCP Nurse Practitioner Family; Visit Provider Internal Medicine Medical Oncology
DX: I11.9 Hypertensive heart disease without heart failure (principal); R06.00 Dyspnea, unspecified; D50.9 Iron deficiency anemia, unspecified; E66.01 Morbid (severe) obesity due to excess calories; Z68.41 Body mass index [BMI] 40.0-44.9, adult
CPT/HCPCS: 36415; 80061; 80076; 85025

== ENCOUNTER 2023-12-22 13:52 | Outpatient (CLI) | payer OTHER, SELFPAY ==
[2023-12-22 14:23] LABS: Basophils # 0.1 K/mm3 (0-0.2); Basophils % 1.1 % (0.1-2.0); Eosinophils % 0.3 % (0.1-12.0); Hematocrit 53.3 % (42.0-52.0); Hemoglobin 17.5 g/dL (14.1-18.0); Lymphocytes # 3.2 K/mm3 (0.7-4.5); Lymphocytes % 33.9 % (10-50); Mean Corpuscular HGB Conc 32.9 g/dL (31.8-35.4); Mean Corpuscular Hemoglobin 29.3 pg (27.0-31.2); Mean Corpuscular Volume 89.1 fl (80-94); Mean Platelet Volume 7.9 fl (7.4-10.4); Monocytes # 0.8 K/mm3 (0.1-1.0); Monocytes % 8.1 % (1.7-9.3); Neutrophils # 5.4 K/mm3 (1.8-7.8); Neutrophils % 56.6 % (37.0-80.0); Platelet Count 252 K/mm3 (142-424); Red Blood Count 5.97 M/mm3 (4.60-6.20); Red Cell Distribution Width 14.2 % (11.5-17.5); White Blood Count 9.5 K/mm3 (4.8-10.8)
[2023-12-22 15:12] LABS: Alanine Aminotransferase 49 U/L (12-78); Albumin Level 4.5 g/dl (3.5-5.0); Alkaline Phosphatase 65 U/L (38-126); Anion Gap 15.9 mEq/L (5-15); Aspartate Amino Transferase 45 U/L (17-59); Bilirubin,Direct 0.2 mg/dl (0.0-0.4); Bilirubin,Indirect 0.3 mg/dL (0.0-0.9); Bilirubin,Total 0.5 mg/dl (0.2-1.3); Bilirubin,Unconjugated 0.4 mg/dL (0.0-1.1); Blood Urea Nitrogen 19 mg/dl (9-20); Calcium 10.2 mg/dl (8.4-10.2); Carbon Dioxide 24 mmol/L (22.0-30.0); Chloride 104 mmol/L (98-107); Chol/HDL Ratio 3.5 (1-3.5); Cholesterol 202 mg/dl (140-200); Estimated Glomerular Filt Rate 58 ml/min (>60); GFR (African American) 70 ML/MIN (>60); Glucose 111 mg/dl (74-100); HDL Cholesterol 57 mg/dl (40-60); Magnesium 1.6 mg/dl (1.6-2.3); Potassium 3.9 mmoL/L (3.5-5.1); Sodium 140 mmol/L (136-145); Total Protein,Serum 7.3 g/dl (6.3-8.2); Triglycerides 340 mg/dl (30-150); VLDL Cholesterol 68 mg/dL (0-40)
[2023-12-22 15:22] LABS: Free T4 (Free Thyroxine) 1.04 ng/dl (0.78-2.19)
[2023-12-22 15:23] LABS: Direct LDL Cholesterol 108.27 mg/dL (100-129)
[2023-12-22 15:44] LABS: Thyroid Stimulating Hormone 1.96 uIU/mL (0.465-4.68)
== END 2023-12-22 23:59 | disposition home or self-care (01) ==
LOC: LAB 13:52
PROVIDERS: PCP Nurse Practitioner Family; Visit Provider Internal Medicine
DX: R94.31 Abnormal electrocardiogram [ECG] [EKG] (principal); R06.00 Dyspnea, unspecified
CPT/HCPCS: 36415; 80048; 80061; 80076; 83735; 84439; 84443; 85025

== ENCOUNTER 2024-05-27 10:00 | Outpatient (CLI) | payer OTHER, SELFPAY ==
--- NOTE | 2024-05-27 10:03 | US_ITS ---
FINAL REPORT CLINICAL HISTORY: ABD CREATINE LEVEL FINDINGS: The right kidney measures 10.9 cm in length. It is normal in echogenicity. There is no hydronephrosis. The left kidney measures 12.4 cm in length. It is normal in echogenicity. There is no hydronephrosis. The spleen is unremarkable. IMPRESSION: Normal renal ultrasound. Reviewed, Interpreted and Dictated by Silviano Mejia MD Transcribed by Edwige Melara Authenticated and . [facility]
== END 2024-05-27 23:59 | disposition home or self-care (01) ==
LOC: RAD 10:01
PROVIDERS: PCP Nurse Practitioner Family; Visit Provider Nurse Practitioner Family
DX: R79.89 Other specified abnormal findings of blood chemistry (principal)
CPT/HCPCS: 76770

== ENCOUNTER 2024-06-30 11:09 | Outpatient (CLI) | payer OTHER, SELFPAY ==
--- NOTE | 2024-06-30 11:13 | CA_ITS ---
APPROVED REPORT EXAM: Comprehensive 2D, Doppler, and color-flow Echocardiogram Certified Orthoptist: Dilcia Ramsey RT(R) Ht: 5 ft 7 in Wt: 293lbs BSA: 2.38 BP: 129/66 mmHg Indications: edema, DELUCA, HTN, COPD, hyperlipidemia, abn EKG, restrictive lung disease/asthma, DD Echo Enhancing Agent Indication: Endocardial border delineation Agent(s) / Amount(s) Used: Definity 2 cc 2D Dimensions EF AP4 61.50 % GL Strain -13.5 % M-Mode Dimensions RVDd 2.05 cm (0.9-2.6) LA Diam 3.63 cm (1.9-4.0) LVDd 5.06 cm (3.5-5.7) LVDs 3.69 cm (3.5-5.7) IVSd 1.00 cm (0.6-1.1) PWd 0.96 cm (0.6-1.1) EF (Teich) 52.50% FS 27.10% EDV (Teich) 121.60 mL ESV (Teich) 57.80 mL LV Diastology E Decel Time 193 (160-240 msec) E/A Ratio 0.9 Mitral Valve MV E Max Lukas. 54.0 (40-130 cm/s) MV A Velocity 60.0 (40-130 cm/s) E/A Ratio 0.89 MV PHT 57.0 ms Left Ventricle The left ventricle is normal size. The left ventricular systolic function is normal. The left ventricular ejection fraction is within the normal range. There is increased LV wall thickness. There is normal LV segmental wall motion. The left ventricular diastolic function is normal. No left ventricle thrombus noted on this study. LVEF is 60%. Right Ventricle The right ventricle is mildly dilated. The right ventricular systolic function is normal. Atria The left atrium size is normal. The right atrium size is normal. There is no Doppler evidence of interatrial shunt. Aortic Valve The aortic valve opens well. There is no aortic valvular stenosis. No aortic regurgitation is present. Mitral Valve The mitral valve is normal in structure. No evidence of mitral valve stenosis. Trace mitral regurgitation. Tricuspid Valve Tricuspid valve is grossly normal in structure and function. Trace tricuspid regurgitation. There is insufficient TR jet to estimate RVSP. Pulmonic Valve The pulmonary valve is normal in structure. Trace pulmonic regurgitation. Great Vessels The aortic root is normal in size. The ascending aorta is not well-visualized. IVC is normal in size and collapses >50% with inspiration. Pericardium There is no pericardial effusion. Other Information Study Quality: Fair Conclusion Normal biventricular systolic function. Mild RV dilation. No significant valvular stenosis or regurgitation. Electronically signed by : Michelle Singer MD 07/11/2024 22:21:08
[2024-06-30] MEDS: DEFINITY US ECHO CONTRAST 2ML INJ 2 MG IV (12:06)
== END 2024-06-30 23:59 | disposition home or self-care (01) ==
LOC: RT 11:10
PROVIDERS: PCP Nurse Practitioner Family; Visit Provider Internal Medicine
DX: I51.7 Cardiomegaly (principal); R07.9 Chest pain, unspecified; R06.09 Other forms of dyspnea; R60.0 Localized edema
CPT/HCPCS: 93306; Q9957

== ENCOUNTER 2024-07-14 08:11 | Outpatient (CLI) | payer OTHER, SELFPAY ==
[2024-07-14 09:14] LABS: Anion Gap 15.3 mEq/L (5-15); Blood Urea Nitrogen 21 mg/dl (9-20); Calcium 10.1 mg/dl (8.4-10.2); Carbon Dioxide 28 mmol/L (22.0-30.0); Chloride 104 mmol/L (98-107); Estimated Glomerular Filt Rate 45 ml/min (>60); GFR (African American) 55 ML/MIN (>60); Glucose 162 mg/dl (74-100); Potassium 4.3 mmoL/L (3.5-5.1); Sodium 143 mmol/L (136-145)
== END 2024-07-14 23:59 | disposition home or self-care (01) ==
LOC: LAB 08:12
PROVIDERS: PCP Nurse Practitioner Family; Visit Provider Internal Medicine
DX: R94.31 Abnormal electrocardiogram [ECG] [EKG] (principal); E78.2 Mixed hyperlipidemia; I51.89 Other ill-defined heart diseases; I10 Essential (primary) hypertension; E66.01 Morbid (severe) obesity due to excess calories; Z68.41 Body mass index [BMI] 40.0-44.9, adult; R06.00 Dyspnea, unspecified; R60.0 Localized edema
CPT/HCPCS: 36415; 80048

== ENCOUNTER 2024-08-23 16:50 | Outpatient (CLI) | payer OTHER, SELFPAY ==
--- NOTE | 2024-08-23 16:53 | MR_ITS ---
PROCEDURE INFORMATION: Exam: MR Cervical Spine Without Contrast Exam date and time: 08/23/2024 4:59 PM Age: 54 years old Clinical indication: Pain; Cervicalgia TECHNIQUE: Imaging protocol: Magnetic resonance imaging of the cervical spine without contrast. COMPARISON: CR XR CERVICAL SPINE 4V 12/21/2019 10:44 AM FINDINGS: Bones/joints: There is straightening of cervical lordosis. The vertebral body heights and alignment are maintained. There is [id number]-gc-[id number] multilevel degenerative disc disease. Spinal cord: Normal signal. No cord compression. C2-C3: There is minimal diffuse disc osteophyte bulging without significant spinal canal or neural foraminal stenosis. C3-C4: There is mild diffuse disc osteophyte bulging which partially effaces the anterior thecal sac. There is no significant spinal canal stenosis. There is mild bilateral neural foraminal stenosis secondary to foraminal disc osteophyte bulging and facet hypertrophy. C4-C5: There is minimal diffuse disc osteophyte bulging which partially effaces the anterior thecal sac. There is no significant spinal canal stenosis. There is mild bilateral neural foraminal stenosis secondary to foraminal disc osteophyte bulging and facet hypertrophy. C5-C6: There is a small central disc protrusion which effaces the anterior thecal sac. There is mild spinal canal stenosis. There is qzdc-zm-[id number] bilateral neural foraminal stenosis secondary to foraminal disc osteophyte bulging and facet hypertrophy. C6-C7: There is a small to moderate-sized broad-based central disc protrusion which effaces the anterior thecal sac. There is fene-tb-possrllc spinal canal stenosis. There is moderate bilateral neural foraminal stenosis secondary to foraminal disc osteophyte bulging. C7-T1: There is minimal central disc bulging which partially effaces the anterior thecal sac. The spinal canal and neural foramina appear patent. Soft tissues: Unremarkable. Vasculature: Expected flow voids in the vertebral arteries. IMPRESSION: 1. Straightening of cervical lordosis. 2. Degenerative changes as described. Dprm-yy-ehqedfpg spinal canal stenosis at C6-C7. Please see above for specific findings at each level.
== END 2024-08-23 23:59 | disposition home or self-care (01) ==
LOC: RAD 16:51
PROVIDERS: PCP Nurse Practitioner Family; Visit Provider Nurse Practitioner Family
DX: M54.2 Cervicalgia (principal)
CPT/HCPCS: 72141

== ENCOUNTER 2024-09-02 07:38 | Outpatient (CLI) | payer OTHER, SELFPAY ==
--- NOTE | 2024-09-02 | CA_ITS ---
APPROVED REPORT Exam: Pharmacologic Technologist: Leeanna Hernandez Ht: 5 ft 7 in Wt: 290 lbs BSA: 2.37 m2 HR: 69 bpm BP: 117/76 mmHg Medical History Medical History: HTN, Hyperlipidemia Medications: Albuterol, Allopurinol, Aspirin, Atorvastatin, Azelastine, Empagliflozin, Nexium, Spironolactone, Fluticasone Propionate Actuation, Famotidine, Fenofibrate Nanocrystallized , Advair diskus, Furosemide, Gabapentin, Loratadine, Losartan, Mepolizumab, Metoprolol Succinate ER, Montelukast, Oseltamivir, Semaglutide, Spiriva Allergies: No known drug allergies Cardiac Risk Factors: HTN, Hyperlipidemia, FHX of CAD Stress Test Details Test: Lexiscan HR Resting HR: 69 bpm Max Heart Rate (APMHR): 167 bpm Target HR (85% APMHR): 142 bpm Recovery HR: 79 bpm BP Resting BP: 117.0/76.0 mmHg Max BP: 155.0/86.0 mmHg Recovery BP: 132.0/78.0 mmHg ECG Resting ECG: NSR Stress ECG: No significant ST changes Stress ECG Conclusion Pt had mild SOA after Lexiscan administration, that resolved shortly thereafter. Conclusion: No evidence of ischemia on ECG following Lexiscan administration. Myoview images are reported separately. Electronically signed by : Michelle Singer MD 09/04/2024 02:03:27
--- NOTE | 2024-09-02 07:39 | NM_ITS ---
APPROVED REPORT Exam: Nuclear Stress Test Indication: soa Patient Location: Outpatient Stress Tech: Leeanna Hernandez NM Tech:Monica ParadaringtonMISSAEL RT(R)(N) Ht: 5 ft 7 in Wt: 285 lbs HR: 69 bpm BP: 117/76 mmHg BSA: 2.35 m2 TID: 1.20 BMI: 44.6 History: soa Procedure: Patient received 0.4 mg of intravenous Lexiscan, resting heart rate 69 bpm, resting blood pressure 117/76 mmHg, with Lexiscan maximum heart rate achieved was 86 bpm which is 85 % of the maximum predicted heart rate and blood pressure was 155/86 mmHg. With Lexiscan, patient denied any complaint of chest pain. Cardiac Stress and Resting SPECT Images: Cardiac Stress and Resting SPECT images were obtained using technetium 99m Myoview 31.7 mCi stress and 10.38 mCi at rest. Resting and stress imaging in supine and prone positions demonstrate no evidence of fixed or reversible perfusion defects. There is borderline increase in transient ischemic dilation ratio (TID 1.20 suggestive of possible multivessel disease or balanced ischemia. Gated imaging demonstrates normal global and regional LV systolic function. LVEF is calculated at at 65%. Conclusion: No evidence of fixed or reversible perfusion defects. There is borderline increase in transient ischemic dilation ratio (TID 1.20), suggestive of possible multivessel disease or balanced ischemia. Gated imaging demonstrates normal global and regional LV systolic function. LVEF is calculated at 64%. In the setting of borderline TID on nuclear stress testing and normal LV systolic function, further evaluation non-invasively with CCTA to rule out multivessel disease is suggested prior to proceeding with invasive coronary angiography. Electronically signed by : Michelle Singer MD 09/02/2024 11:26:57
[2024-09-02] MEDS: ISOTOPE MYOVIEW (PER STUDY) 1 DOSE IV (11:12)
[2024-09-02] MEDS: REGADENOSON 0.4MG/5ML SYRINGE 0.4 MG IV (11:12)
[2024-09-02] MEDS: SODIUM CHLORIDE 0.9% 10ML SYR (RAD ONLY) 10 ML IV ×2 (11:13)
== END 2024-09-02 23:59 | disposition home or self-care (01) ==
LOC: RAD 07:39
PROVIDERS: PCP Nurse Practitioner Family; Visit Provider Internal Medicine
DX: R94.31 Abnormal electrocardiogram [ECG] [EKG] (principal); R06.00 Dyspnea, unspecified; I10 Essential (primary) hypertension; I50.30 Unspecified diastolic (congestive) heart failure
CPT/HCPCS: 78452; 93017; 93018; A9502; J2785

== ENCOUNTER 2024-09-16 12:45 | Outpatient (CLI) | payer OTHER, SELFPAY ==
[2024-09-16 13:10] VITALS: PULSE 68; PULSE 70
[2024-09-16] MEDS: ALBUTEROL 0.083% 2.5 MG/3 ML NEB IH (13:10)
== END 2024-09-16 23:59 | disposition home or self-care (01) ==
LOC: RT 12:45
PROVIDERS: PCP Nurse Practitioner Family; Visit Provider Internal Medicine Pulmonary Disease
DX: J44.9 Chronic obstructive pulmonary disease, unspecified (principal)
CPT/HCPCS: 94010; 94640; J7613

== ENCOUNTER 2024-09-24 11:46 | Outpatient (CLI) | payer OTHER, SELFPAY ==
[2024-09-24 08:58] VITALS: BMI 46.0
--- NOTE | 2024-09-24 11:46 | CT_ITS ---
APPROVED REPORT Food Service Specialist: CLINICAL INDICATION Chest Pain TECHNIQUE Image Acquisition: A 128 slice MDCT scanner ([employer]) was used for data acquisition. A noncontrast coronary calcium scan was performed. A CT attenuation threshold of 130 Hounsfield units (HU) was used for the detection of calcium in contiguous voxels of 1 sq mm in area to be counted as individual lesions. Bolus tracking in the ascending aorta with a threshold of 180 HU was performed. Immediately afterwards, ECG synchronized cardiac CT was then performed from the cardiac base to apex using retrospective gating with ECG tube current modulation. A total of 85 mL of Isovue 370 mg/mL contrast medium was administered at 5 mL/sec followed by a saline flush using a biphasic injection protocol. A tube voltage of 120 KVp was used. The patient received the following medications prior to the cardiac CT. 25 mg of oral metoprolol 5 mg of intravenous metoprolol 15 mg of oral ivabradine 0.4 mg of sublingual nitroglycerin The average heart rate at the time of acquisition was 67 bpm and regular. Image Reconstruction Transaxial images were reconstructed at 0.67 mm slide thickness. Data was reviewed interactively on an advanced workstation capable of 2 and 3-dimensional displays in all conventional reconstruction formats, including multiplanar reformations, maximum intensity projections, curved multiplanar reformations, and volume rendered reconstructions. When applicable, selected routine images describing the relevant coronary anatomy and pathology were saved and sent to PACS. Complications None Technical Quality Overall image quality was fair due to significant blurring artifact. Coronary artery opacification was adequate. Total DLP (Dose-Length Product) is 2070.4 mGy-cm. The reported value represents the total of one or more individual components during the CT acquisition of this date and at this time, and as such, the same value may appear in more than one CT report depending on the interpreting/reporting physicians. COMPARISON None FINDINGS CT Coronary Calcium Scoring LMA (Left Main Artery) = 6 LAD (Left Anterior Descending) = 53 LCX (Left Coronary Circumflex) = 26 RCA (Right Coronary Artery) = 9 Total Calcium Score = 94 using the AJ-130 method. The observed calcium score of 94 is at 83rd percentile for subjects of the same age, sex, and race/ethnicity. The interpretation of the calcium heart score is based on the following continuum*: 0 = no calcified plaque detected (risk of coronary artery disease is very low ??? less than 5%) 1-10 = calcium detected in extremely minimal levels (risk of coronary diseases is still low ??? less than 10%) 11-100 = mild levels of plaque detected with certainty (mild or minimal narrowing of heart arteries is likely) 101-400 = definite,at least moderate levels of plaque detected (relatively high risk of a heart attack within 3-5 years) >401-999 = extensive levels of plaque detected (high risk of heart attack, high levels of vascular disease are present, high likelihood of at least one significant coronary narrowing) *The calcium heart score quantifies the burden of coronary calcification/plaque in the coronary arteries. The calcium heart score is not able to evaluate the presence or burden of non-calcified (i.e. soft) plaque. There is no identifiable calcification in the aortic valve, mitral annulus or mitral valve, pericardium, or myocardium. Coronary CT Angiography The coronary arterial system is right dominant. Quantitative Stenosis Grading: Left Main (LM): The left main originates normally from the left sinus of Valsalva. The LM bifurcates into the left anterior descending artery and left circumflex artery. There is calcified plaque in the proximal LM segment, with no evidence of luminal stenosis. Left Anterior Descending (LAD) and Diagonal Branches: The LAD gives off 3 diagonal branch(es). There is mixed calcified/noncalcified plaque in the proximal LAD segment, with up to 25-49% luminal stenosis. There is no evidence of LAD-myocardial bridge. Left Circumflex (LCX) and Obtuse Marginals (OM): The LCX gives off 1 Obtuse Marginal (OM) branch(es). There is mixed calcified/noncalcified plaque in the proximal LCx segment, with up to 25-49% luminal stenosis. Right Coronary Artery (RCA): The RCA originates normally from the right sinus of Valsalva. The RCA gives off a posterior descending artery (PDA) and posterolateral (PL) branches. There is mixed calcified/noncalcified plaque in the distal RCA segment, with up to 25-49% luminal stenosis. Non-Coronary Cardiac Findings: Analysis of the left ventricular (LV) structure and function was performed after 3-D reconstruction of the LV from axial images, with user-corrected automatic contouring for assessment of LV volumes and user-defined reconstruction from oblique planes for measurement of 3-D cardiac structure and function. -The left ventricle systolic function is normal. -There is no left atrial appendage filling defect. Two right pulmonary veins and two left pulmonary veins drain normally into the left atrium. -No pericardial thickening or calcification. -Central and branch pulmonary arteries in the [id number]-[id number] are unremarkable. -Thoracic aorta within the visualized thoracic aortic-branches in the [id number]-sy-[id number] is unremarkable. Extracardiac Structures No significant extra-cardiac findings. Note, however, that this study is focused on the cardiac findings. IMPRESSION -Fair image quality with presence of significant blurring. This may affect the diagnostic interpretation of the study findings. -Absence of coronary calcification with an Agatston score = 94 using the AJ-130 method. -The observed calcium score of 94 is at 83rd percentile for subjects of the same age, sex, and race/ethnicity. -Mild, nonobstructive atherosclerotic coronary disease, with no evidence of significant flow-limiting atherosclerosis of the coronary arteries. -CAD-RADS 2. Management recommendations per ACC/AHA guidelines*, as clinically appropriate. *Recommendations: CAD RADS 0: Reassurance. Consider non-atherosclerotic causes of chest pain. CAD RADS 1: Consider non-atherosclerotic causes of chest pain. Consider preventive therapy and risk factor modification. CAD RADS 2: Consider non-atherosclerotic causes of chest pain. Consider preventive therapy and risk factor modification, particularly for patients with nonobstructive plaque in multiple segments. CAD RADS 3: Consider further functional testing. Consider symptom-guided anti-ischemic and preventive pharmacotherapy as well as risk factor modification per published guideline statements. CAD RADS 4A: Consider further functional testing or invasive coronary angiography with revascularization per published guideline statements. Consider symptom-guided anti-ischemic and preventive pharmacotherapy as well as risk factor modification per published guideline statements. CAD RADS 4B: Invasive coronary angiography recommended with revascularization per published guideline statements. Consider symptom-guided anti-ischemic and preventive pharmacotherapy as well as risk factor modification per published guideline statements. CAD RADS 5: Consider invasive angiography and/or viability assessment with revascularization per published guideline statements. Consider symptom-guided anti-ischemic and preventive pharmacotherapy as well as risk factor modification per published guideline statements. CRITICAL RESULT None COMMUNICATION Per this written report The coronary and cardiac findings of this CCTA were reviewed, reported, and signed by Tye Singer MD (Perforating Machine Operator) Conclusion Electronically signed by : Michelle Singer MD 09/28/2024 12:01:39
[2024-09-24] MEDS: IVABRADINE HCL 7.5MG TABLET PO (12:23)
[2024-09-24] MEDS: METOPROLOL TARTRATE 25MG TABLET 25 MG (12:24)
[2024-09-24 12:30] VITALS: BMI 46.0
[2024-09-24 12:33] LABS: Chloride 102 mmol/L (98-107); Sodium 138 mmol/L (136-145)
[2024-09-24 12:36] LABS: Blood Urea Nitrogen 20 mg/dl (9-20); Carbon Dioxide 25 mmol/L (22.0-30.0); Creatinine Clearance Estimated 57 mL/min (50-200); Estimated Glomerular Filt Rate 53 ml/min (>60); GFR (African American) 64 ML/MIN (>60)
[2024-09-24 12:37] LABS: Calcium 9.6 mg/dl (8.4-10.2); Glucose 107 mg/dl (74-100)
[2024-09-24 13:55] VITALS: BP 140/79; PULSE 70; RESP 18; O2SAT 99
[2024-09-24] MEDS: METOPROLOL TARTRATE 5MG/5ML VIAL 5 MG IV (13:55)
[2024-09-24] MEDS: NITROGLYCERIN 0.4MG SL TABLET SL (13:55)
[2024-09-24 14:00] VITALS: BP 137/69; PULSE 67; RESP 18; O2SAT 96
[2024-09-24] MEDS: 0.9 % SODIUM CHLORIDE 50 ML VIAL IV (14:02)
[2024-09-24] MEDS: SODIUM CHLORIDE 0.9% 10ML SYR (RAD ONLY) 10 ML IV (14:03)
[2024-09-24] MEDS: IOPAMIDOL-370 (76%);100ML BOTTLE 94 ML IV (14:03)
[2024-09-24 14:05] VITALS: BP 117/71; PULSE 68; RESP 18; O2SAT 98
[2024-09-24 14:10] VITALS: BP 115/69; PULSE 69; RESP 18; O2SAT 95
[2024-09-24 14:15] VITALS: BP 138/72; PULSE 71; RESP 18
== END 2024-09-24 14:15 | disposition home or self-care (01) ==
PROVIDERS: PCP Nurse Practitioner Family; Visit Provider Internal Medicine
DX: I25.10 Atherosclerotic heart disease of native coronary artery without angina pectoris (principal); I50.30 Unspecified diastolic (congestive) heart failure
CPT/HCPCS: 75574; 80048; Q9967

== ENCOUNTER → 2024-09-29 13:51 | Outpatient (CLI) | payer OTHER, SELFPAY | LOC: SL 13:52 | PROVIDERS: PCP Nurse Practitioner Family; Visit Provider Internal Medicine Pulmonary Disease | DX: G47.33 Obstructive sleep apnea (adult) (pediatric) (principal) | CPT/HCPCS: 94762 ==

== ENCOUNTER 2024-11-29 07:19 | Outpatient (CLI) | payer OTHER, SELFPAY ==
--- NOTE | 2024-11-29 07:23 | US_ITS ---
FINAL REPORT TECHNIQUE: Sonographic images of the right upper quadrant were obtained. CLINICAL HISTORY: ELEVATED LIVER ENZYMES FINDINGS: PANCREAS: Unremarkable. LIVER: There is fatty infiltration of the liver. The liver is enlarged. No focal hepatic lesion. No intrahepatic biliary ductal dilatation. GALLBLADDER: No gallstones. No gallbladder wall thickening or pericholecystic fluid. COMMON DUCT: 3 mm. Normal for age. RIGHT KIDNEY: The right kidney measures 11.5 cm. There is no hydronephrosis, mass, or stone. FREE FLUID: None. IMPRESSION: Enlarged, fatty liver. Reviewed, Interpreted and Dictated by Gabriela Schreiber MD Transcribed by Yuliya Franco Authenticated and [facility]
== END 2024-11-29 23:59 | disposition home or self-care (01) ==
LOC: RAD 07:20
PROVIDERS: PCP Nurse Practitioner Family; Visit Provider Nurse Practitioner Family
DX: R74.8 Abnormal levels of other serum enzymes (principal)
CPT/HCPCS: 76705

== ENCOUNTER 2025-01-04 02:36 | Emergency (ER) | payer OTHER, SELFPAY ==
[2025-01-04] VITALS (10 sets, daily range): BP systolic 110–149; BP diastolic 56–86; PULSE 59–78; RESP 16; TEMP 36.6; O2SAT 92–97; BMI 45.2
--- NOTE | 2025-01-04 02:49 | CT_ITS ---
PROCEDURE INFORMATION: Exam: CT Abdomen And Pelvis With Contrast Exam date and time: 01/04/2025 3:26 AM Age: 54 years old Clinical indication: Other: Right flank/low back/si pain TECHNIQUE: Imaging protocol: Computed tomography of the abdomen and pelvis with contrast. Radiation optimization: All CT scans at this facility use at least one of these dose optimization techniques: automated exposure control; mA and/or kV adjustment per patient size (includes targeted exams where dose is matched to clinical indication); or iterative reconstruction. Contrast material: ISOVUE; Contrast volume: 80 ml; Contrast route: IV; COMPARISON: US LIVER 11/29/2024 7:18 AM FINDINGS: Liver: Diffuse fatty infiltration. Measures 21 cm. No mass. Gallbladder and biliary ducts: Normal. No calcified stones. No ductal dilation. Pancreas: Normal. No ductal dilation. Spleen: Normal. No splenomegaly. Adrenal glands: Normal. No mass. Kidneys and ureters: No nephroureterolithiasis. No hydronephrosis. Stomach and bowel: Unremarkable. No obstruction. No mucosal thickening. Appendix: No evidence of appendicitis. Intraperitoneal space: Unremarkable. No free air. No significant fluid collection. Vasculature: Unremarkable. No abdominal aortic aneurysm. Lymph nodes: Unremarkable. No enlarged lymph nodes. Urinary bladder: Unremarkable as visualized. Reproductive: Unremarkable as visualized. Bones/joints: Unremarkable. No acute fracture. Soft tissues: Unremarkable. IMPRESSION: 1. No acute findings. 2. Hepatomegaly with fatty infiltration.
[2025-01-04 03:02] LABS: Chloride 106 mmol/L (98-107)
[2025-01-04 03:03] LABS: Albumin Level 4.5 g/dl (3.5-5.0); Potassium 3.9 mmoL/L (3.5-5.1); Sodium 139 mmol/L (136-145)
[2025-01-04 03:05] LABS: Basophils # 0.1 K/mm3 (0-0.2); Basophils % 0.6 % (0.1-2.0); Blood Urea Nitrogen 17 mg/dl (9-20); Creatinine Clearance Estimated 57 mL/min (50-200); Eosinophils # 0.1 Kmm3 (0.0-0.4); Eosinophils % 0.6 % (0.1-12.0); Estimated Glomerular Filt Rate 53 ml/min (>60); GFR (African American) 64 ML/MIN (>60); Hematocrit 49.6 % (42.0-52.0); Hemoglobin 16.8 g/dL (14.1-18.0); Immature Granulocytes # 0.05 10^3uL; Immature Granulocytes % 0.6 %; Lymphocytes # 4.4 K/mm3 (0.7-4.5); Lymphocytes % 52.8 % (10-50); Mean Corpuscular HGB Conc 33.9 g/dL (31.8-35.4); Mean Corpuscular Hemoglobin 28.4 pg (27.0-31.2); Mean Corpuscular Volume 83.9 fl (80-94); Mean Platelet Volume 10.7 fl (7.4-10.4); Monocytes # 0.7 K/mm3 (0.1-1.0); Monocytes % 8.2 % (1.7-9.3); Neutrophils # 3.1 K/mm3 (1.8-7.8); Neutrophils % 37.2 % (37.0-80.0); Nucleated Red Blood Cells # 0 10^3/uL; Nucleated Red Blood Cells % 0 %; Platelet Count 104 K/mm3 (142-424); Red Blood Count 5.91 M/mm3 (4.60-6.20); Red Cell Distribution Width-SD 42.5 fL; White Blood Count 8.4 K/mm3 (4.8-10.8)
[2025-01-04 03:06] LABS: Alanine Aminotransferase 58 U/L (12-78); Albumin/Globulin Ratio 1.7 (1.1-1.8); Alkaline Phosphatase 63 U/L (38-126); Anion Gap 11.9 mEq/L (5-15); Aspartate Amino Transferase 60 U/L (17-59); Bilirubin,Total 0.6 mg/dl (0.2-1.3); Calcium 9.7 mg/dl (8.4-10.2); Carbon Dioxide 25 mmol/L (22.0-30.0); Globulin 2.7 g/dL (1.3-3.2); Glucose 134 mg/dl (74-100); Total Protein,Serum 7.2 g/dl (6.3-8.2)
[2025-01-04] MEDS: METHOCARBAMOL 500MG TABLET 1000 MG PO (03:07)
[2025-01-04] MEDS: ACETAMINOPHEN 500MG TAB 1000 MG PO (03:08)
[2025-01-04] MEDS: KETOROLAC 30MG/ML VIAL 30 MG IV (03:08)
[2025-01-04] MEDS: IOPAMIDOL-370 (76%);100ML BOTTLE 80 ML IV (03:33)
[2025-01-04] MEDS: SODIUM CHLORIDE 0.9% 10ML SYR (RAD ONLY) 10 ML IV (03:33)
--- NOTE | 2025-01-04 03:36 | ED_ITS ---
Discharge Plan Disposition Patient Disposition: Home, Self-Care Condition: Good Prescriptions Prescriptions: New methocarbamol 500 mg tablet 1,000 mg PO Q6H PRN (Reason: pain) Qty: 30 0RF lidocaine 5 % adhesive patch,medicated 1 patch topical DAILY PRN (Reason: pain) Qty: 30 0RF Rx Instructions: leave on most painful area for up to 12 hrs No Action fluticasone propion-salmeterol [Advair Diskus] 500-50 mcg/dose blister with device 1 inh inhalation BID Qty: 180 2RF montelukast 10 mg tablet 10 mg PO DAILY 90 Days Qty: 90 2RF ipratropium-albuterol 0.5 mg-3 mg(2.5 mg base)/3 mL solution for nebulization 3 ml inhalation Q6H PRN (Reason: shortness of breath or wheezing) 30 Days Qty: 90 3RF tiotropium bromide [Spiriva with HandiHaler] 18 mcg capsule, w/inhalation device See Rx Instructions .ROUTE .COMPLEX Qty: 90 2RF Dose Instruction: INHALE 1 PUFF BY MOUTH ONCE DAILY FOR 90 DAYS Rx Instructions: INHALE 1 PUFF BY MOUTH ONCE DAILY FOR 90 DAYS gabapentin 300 mg capsule 300 mg PO DAILY Patient Comments: TAKE 1 CAPSULE BY MOUTH TWICE DAILY esomeprazole magnesium [Nexium] 20 mg capsule,delayed release(DR/EC) 20 mg PO DAILY Jardiance 25 mg tablet 25 mg PO DAILY famotidine 20 mg tablet 20 mg PO HS losartan 50 mg tablet 50 mg PO DAILY Qty: 90 3RF (DME) FreeStyle Lite Strips Strip See Rx Instructions .ROUTE .MEDSUPPLY Qty: 10 Patient Comments: USE 1 STRIP TO CHECK GLUCOSE THREE TIMES DAILY DIRECTED Rx Instructions: As directed (DME) FreeStyle Adalid 3 Plus Sensor Device See Rx Instructions .ROUTE .MEDSUPPLY Qty: 1 Patient Comments: USE DIRECTED Rx Instructions: As directed Mounjaro 5 mg/0.5 mL pen injector SQ ammonium lactate 12 % cream 1 applic topical BID 30 Days Qty: 385 2RF spironolactone 25 mg tablet 25 mg PO DAILY Qty: 90 3RF atorvastatin [Lipitor] 40 mg tablet 40 mg PO DAILY Qty: 30 5RF aspirin [Adult Low Dose Aspirin] 81 mg tablet,delayed release (DR/EC) 81 mg PO DAILY Qty: 90 3RF Nucala 100 mg/mL auto-injector 100 mg SQ Q4W Qty: 1 3RF metoprolol succinate 25 mg tablet extended release 24 hr 25 mg PO HS Qty: 90 3RF furosemide 40 mg tablet See Rx Instructions .ROUTE .COMPLEX Qty: 90 3RF Dose Instruction: Take 1 tablet by mouth once daily Rx Instructions: Take 1 tablet by mouth once daily fluticasone propionate 50 mcg/actuation spray,suspension See Rx Instructions .ROUTE .COMPLEX Qty: 16 0RF Dose Instruction: Use 2 spray(s) in each nostril once daily Rx Instructions: Use 2 spray(s) in each nostril once daily albuterol sulfate [Ventolin HFA] 90 mcg/actuation HFA aerosol inhaler See Rx Instructions .ROUTE .COMPLEX Qty: 18 0RF Dose Instruction: INHALE 2 PUFFS BY MOUTH EVERY 6 HOURS NEEDED FOR SHORTNESS OF BREATH FOR WHEEZING Rx Instructions: INHALE 2 PUFFS BY MOUTH EVERY 6 HOURS NEEDED FOR SHORTNESS OF BREATH FOR WHEEZING (DME) pen needle, diabetic 1 EACH needle 1 each SQ ACHS Qty: 120 2RF allopurinol 300 MG tablet 300 mg PO DAILY fenofibrate nanocrystallized 145 MG tablet 145 mg PO DAILY loratadine 10 MG capsule 10 mg PO DAILY Referrals Follow up/Referrals: Cassie Can APRN [Primary Care Provider] - See instructions Activity Restrictions/Add. Instructions Additional Instructions/Restrictions: Please follow-up with your primary care provider. Please return to the emergency department if you develop any new or worsening symptoms or become concerned for your health. Recommend Tylenol and ibuprofen and lidocaine patches and muscle relaxers as needed for pain. Clinical Impressions Clinical Impression: Acute right-sided low back pain Qualifiers: Sciatica presence: without sciatica Qualified Code(s): M54.50 - Low back pain, unspecified Instructions Patient Instructions: DI for Low Back Pain Print Language Print Language: Brazilian Discharge ED Provider: Johan Gross Adult [facility] General Chief complaint: Back Pain/Injury Stated complaint: sharp pain R side Time Seen by Provider: 01/04/25 02:37 Mode of Arrival: Ambulatory Source of Information: Patient Description of Symptoms (Recalled from ER Triage Doc. 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 Standing makes it worse. History of Present Illness HPI narrative: 54-year-old male with history of diabetes, coronary artery disease, obesity, presents for right-sided low back pain. It has been ongoing for several days. He denies any midline back pain. Denies any urinary symptoms. Denies any abdominal pain. Denies any radiation of pain down the leg, denies any incontinence, numbness or weakness. Related Data Home Medications ?Medication ?Instructions ?Recorded ?Confirmed allopurinol 300 mg tablet 300 mg PO DAILY gout 04/21/20 11/18/24 fenofibrate nanocrystallized 145 145 mg PO DAILY * 04/28/20 11/18/24 mg tablet loratadine 10 mg capsule 10 mg PO DAILY allergies 04/28/20 11/18/24 esomeprazole magnesium 20 mg 20 mg PO DAILY 07/17/21 11/18/24 capsule,delayed release (Nexium) empagliflozin 25 mg tablet 25 mg PO DAILY 05/03/22 11/18/24 (Jardiance) famotidine 20 mg tablet 20 mg PO HS 07/24/22 11/18/24 blood sugar diagnostic (FreeStyle #10 ea 06/23/24 11/18/24 Lite Strips) blood-glucose sensor (FreeStyle #1 ea 06/23/24 11/18/24 Adalid 3 Plus Sensor device) gabapentin 300 mg capsule 300 mg PO DAILY 08/25/24 11/18/24 tirzepatide 5 mg/0.5 mL mg SQ 11/18/24 11/18/24 subcutaneous pen injector (John) Previous Rx's ?Medication ?Instructions ?Recorded pen needle, diabetic 32 gauge x #120 ea 07/09/2110/24 losartan 50 mg tablet 50 mg PO DAILY High blood pressure 06/23/23 #90 tabs atorvastatin 40 mg tablet (Lipitor) 40 mg PO DAILY #30 tabs 12/10/23 aspirin 81 mg tablet,delayed 81 mg PO DAILY #90 tabs 06/14/24 release (Adult Low Dose Aspirin) mepolizumab 100 mg/mL subcutaneous 100 mg SQ Q4W #1 mL 06/15/24 auto-injector (Alexsandra) metoprolol succinate 25 mg 25 mg PO HS High blood pressure 08/05/24 tablet,extended release 24 hr #90 tabs Spiriva with HandiHaler 18 mcg and See Rx Instructions .Route 09/16/24 inhalation capsules (tiotropium .COMPLEX #90 caps bromide) fluticasone 500 mcg-salmeterol 50 1 inh inhalation BID #180 ea 09/16/24 mcg/dose blistr powdr for inhalation (Advair Diskus) ipratropium 0.5 mg-albuterol 3 mg 3 ml inhalation Q6H PRN shortness 09/16/24 (2.5 mg base)/3 mL nebulization of breath or wheezing 30 days #90 soln mL montelukast 10 mg tablet 10 mg PO DAILY 90 days #90 tabs 09/16/24 spironolactone 25 mg tablet 25 mg PO DAILY #90 tabs 09/29/24 furosemide 40 mg tablet See Rx Instructions .Route 10/05/24 .COMPLEX #90 tabs ammonium lactate 12 % topical cream 1 applic topical BID dry skin, 11/18/24 callus care 30 days #385 grams fluticasone propionate 50 See Rx Instructions .Route 12/01/24 mcg/actuation nasal .COMPLEX #16 grams spray,suspension Ventolin HFA 90 mcg/actuation See Rx Instructions .Route 12/30/24 aerosol inhaler (albuterol sulfate) .COMPLEX #18 grams lidocaine 5 % topical patch 1 patch topical DAILY PRN pain #30 01/04/25 ea methocarbamol 500 mg tablet 1,000 mg (2 x 500 mg) PO Q6H PRN 01/04/25 pain #30 tabs Allergies Allergy/AdvReac Type Severity Reaction Status Date / Time No Known Allergies Allergy Verified 11/18/24 15:15 [facility] Disclaimer: The information contained in this section may have been updated after the patient was seen, as this information can be updated by other users. Medical History CAD (coronary artery disease) Abnormal nuclear cardiac imaging test (HFpEF) heart failure with preserved ejection fraction Edema of both lower extremities Abnormal electrocardiogram [ECG] [EKG] Hyperlipidemia Deviated septum Hearing loss Tinnitus Diastolic dysfunction Allergic rhinitis Nocturnal hypoxemia Restrictive lung disease Moderate persistent asthma Seasonal allergies Dyspnea on exertion History of 2019 novel coronavirus disease (COVID-19) Morbid obesity Blood pressure instability Right arm numbness Left arm numbness Obesity Gastroesophageal reflux disease Family history of heart disease Abnormal EKG Dyspnea Surgical History History of shoulder surgery Family History Other Cancer Diabetes Heart attack No significant family history Social History Smoking Status: Never smoker alcohol intake: never substance use type: denies use current occupational status: other Travel in the last 8 weeks?: None household members: spouse housing: house current occupation: [employer] caffeine: Yes Have you lived/traveled outside [place] in past 30 days?: No Contact w/someone who lives/traveled outside [place] past 30 days?: No Exposure to someone with infectious disease in past 14 days?: No Do you have a fever (greater than 100.4 F or 38 C)?: No Have you tested positive for COVID-19?: No Exposed to someone with COVID-19 in past 14 days?: No Do you have a sore throat?: No Do you have a cough?: No Do you have any weakness?: No Do you have any diarrhea?: No Are you experiencing any unusual bleeding?: No Do you have any muscle aches/pain?: No Do you have any abdominal pain?: No Are you experiencing loss of taste or smell?: No Other Medical History Have you received the Flu Vaccine for this season: No Have you received the Pneumonia Vaccine: Yes ROS Obtained: Yes All systems reviewed & no additional complaints except as documented Physical Exam General General appearance: alert and in no apparent distress Head Head exam: atraumatic and normocephalic Eye Eye exam: Present normal appearance, PERRL and EOMI ENT ENT exam: Present normal oropharynx and normal external ear exam Neck Neck exam: Present normal inspection and full ROM Chest Chest inspection: Present normal inspection and symmetric chest wall rise; Absent tenderness Respiratory Respiratory exam: Present normal lung sounds bilaterally; Absent respiratory distress Cardiovascular Cardiovascular exam: Present regular rate and normal rhythm Abdominal Exam Abdominal exam: Present soft; Absent distention, tenderness or guarding Extremities Exam Extremities exam: Present normal inspection; Absent edema or joint swelling Back Exam Back exam: Present normal inspection and tenderness (Right SI joint tenderness) Neurological Exam Neurological exam: Present alert and oriented X3; Absent motor sensory deficit Psychiatric Psychiatric exam: Present normal affect and normal mood Skin Skin exam: Present warm, dry and normal color Lymphatic Lymphatic Findings: no adenopathy Medical Decision Making Medical Records Medical records reviewed: Yes I reviewed the patient's medical records. Screening: Per USPSTF and CDC recommendations, given the prevalence of disease in our region, it is our hospital?s policy to screen for HIV and viral Hepatitis for all patients aged 18 and over and those with ongoing risk factors. Alberto Inquiry Pt receiving controlled substance: No Alberto was queried for this patient: No Vital Signs: 01/04/25 02:43 01/04/25 02:52 01/04/25 03:00 Temperature 97.9 F Temperature Source Oral Pulse Rate 71 77 Pulse Rate [Right Radial] 76 Respiratory Rate 16 Blood Pressure 129/86 124/79 Blood Pressure [Right Arm] 149/77 H Blood Pressure Mean Blood Pressure Mean [Right Arm] 101 Blood Pressure Source [Right Arm] Automatic Cuff Blood Pressure Position Blood Pressure Position [Right Arm] Supine 02 Sat by Pulse Oximetry 95 96 93 L Oxygen Delivery Method Room Air 01/04/25 03:15 01/04/25 03:31 01/04/25 03:45 Temperature Temperature Source Pulse Rate 70 77 73 Pulse Rate [Right Radial] Respiratory Rate Blood Pressure Blood Pressure [Right Arm] Blood Pressure Mean Blood Pressure Mean [Right Arm] Blood Pressure Source [Right Arm] Blood Pressure Position Blood Pressure Position [Right Arm] 02 Sat by Pulse Oximetry 97 97 95 Oxygen Delivery Method 01/04/25 04:01 01/04/25 04:30 01/04/25 05:00 Temperature Temperature Source Pulse Rate 63 63 78 Pulse Rate [Right Radial] Respiratory Rate Blood Pressure 110/56 L 113/71 113/66 Blood Pressure [Right Arm] Blood Pressure Mean 81 79 Blood Pressure Mean [Right Arm] Blood Pressure Source [Right Arm] Blood Pressure Position Blood Pressure Position [Right Arm] 02 Sat by Pulse Oximetry 94 L 92 L 93 L Oxygen Delivery Method 01/04/25 05:13 Temperature 97.9 F Temperature Source Oral Pulse Rate 59 L Pulse Rate [Right Radial] Respiratory Rate 16 Blood Pressure 113/66 Blood Pressure [Right Arm] Blood Pressure Mean Blood Pressure Mean [Right Arm] Blood Pressure Source [Right Arm] Blood Pressure Position Supine Blood Pressure Position [Right Arm] 02 Sat by Pulse Oximetry Oxygen Delivery Method Room Air Lab Data Lab results reviewed: Yes I reviewed the patient's lab results. Lab Results 01/04/25 02:50: WBC 8.4, RBC 5.91, Hgb 16.8, Hct 49.6, MCV 83.9, MCH 28.4, MCHC 33.9, RDW 14.0, Plt Count 104 L, MPV 10.7 H, Neut % (Auto) 37.2, Lymph % (Auto) 52.8 H, [place] % (Auto) 8.2, Eos % (Auto) 0.6, Baso % (Auto) 0.6, Neut # (Auto) 3.1, Lymph # (Auto) 4.4, [place] # (Auto) 0.7, Eos # (Auto) 0.1, Baso # (Auto) 0.1, Sodium 139, Potassium 3.9, Chloride 106, Carbon Dioxide 25, Anion Gap 11.9, BUN 17, Creatinine 1.40 H, Estimated Creat Clear 57, Estimated GFR 53 L, Est GFR ( Amer) 64, Glucose 134 H, Calcium 9.7, Total Bilirubin 0.6, AST 60 H, ALT 58, Alkaline Phosphatase 63, Total Protein 7.2, Albumin 4.5, Globulin 2.7, Albumin/Globulin Ratio 1.7 01/04/25 03:47: Urine Color Yellow, Urine Appearance Clear, Urine pH 6.0, Ur Specific [place] 1.020, Urine Protein Negative, Urine Glucose (UA) 3+, Urine Ketones Negative, Urine Blood Negative, Urine Nitrate Negative, Urine Bilirubin Negative, Urine Urobilinogen 0.2, Ur Leukocyte Esterase Negative, Urine RBC Occasional, Urine WBC Occasional, Ur Squamous Epith Cells Occasional 01/04/25 02:50 01/04/25 02:50 Orders (Tests/Meds): ED MEDICATIONS Discontinued Medications Generic Name Dose Route Start Last Admin Trade Name Freq PRN Reason Stop Dose Admin Acetaminophen 1,000 mg 01/04/25 02:48 01/04/25 03:08 Acetaminophen 500mg Tab PO 01/04/25 02:49 1,000 mg ONCE ONE Administration Iopamidol 80 ml 01/04/25 03:32 01/04/25 03:33 Iopamidol-370 (76%);100ml Bottle IV 01/04/25 03:33 80 ml ONCE ONE Administration Ketorolac Tromethamine 30 mg 01/04/25 02:48 01/04/25 03:08 Ketorolac 30mg/Ml Vial IV 01/04/25 02:49 30 mg ONCE ONE Administration Methocarbamol 1,000 mg 01/04/25 02:48 01/04/25 03:07 Methocarbamol 500mg Tablet PO 01/04/25 02:49 1,000 mg ONCE ONE Administration Sodium Chloride 10 ml 01/04/25 03:32 01/04/25 03:33 Sodium Chloride 0.9% 10ml Syr (Rad Only) IV 01/04/25 03:33 10 ml ONCE ONE Administration ORDERS Category Date Time Status CT abdomen pelvis w con Stat Cat Scan 01/04/25 02:49 Completed CBC w/Auto Diff [Complete Blood Count Auto Diff] Stat Lab 01/04/25 02:50 Completed CMP [Comprehensive Metabolic Panel] Stat Lab 01/04/25 02:50 Completed UA [Urinalysis and Microscopic] Stat Lab 01/04/25 03:47 Completed Medical Decision Narrative: 54-year-old male with history of obesity, diabetes, coronary artery disease presents for a few days of right low back pain. History was obtained via interactive discussion with patient. On arrival, patient is [afebrile, hemodynamically stable, satting appropriately, alert, oriented x4, GCS 15], moving all extremities spontaneously. Full physical exam performed and significant for tenderness to palpation of the right SI joint. Differential includes but is not limited to sacroiliitis, sciatica, lumbar fracture, kidney stone, spinal cord pathology. Patient was given Tylenol, Toradol, Robaxin for symptomatic management and correction of underlying abnormalities. Workup initiated including CBC CMP CT abdomen pelvis without contrast, UA. On re-evaluation, patient [remains afebrile, HD stable.] Laboratory workup independently interpreted by me and significant for no significant leukocytosis, stable creatinine, urine without evidence of infection.. Imaging independently interpreted by me and significant for normal CT scan, no ureteral stone, no significant bony abnormalities of the pelvis.. See radiology read for full review of final results. Given patient history, exam and workup, patient's presentation most likely represents musculoskeletal back pain, specifically SI joint pain. No evidence of neurologic pathology on history or exam. Patient was instructed to follow-up with PCP. Patient was discharged in stable condition prescription for muscle relaxers and lidocaine patches. Return precautions given.. Procedures Risk/Benefits of Procedure(s) Were Explained: Yes Critical Care Critical Care Time Critical Care Time: No
[2025-01-04 03:52] LABS: Microscopic, Urine URINE MICROSCOPIC (MICROSCOPIC)
[2025-01-04 03:53] LABS: Appearance,Urine CLEAR (Clear); Bilirubin,Urine Negative (Negative); Blood, Urine Negative (Negative); Color,Urine YELLOW (Yellow); Glucose,Urine (UA) 3+ (Negative); Ketones,Urine Negative (Negative); Leukocyte Esterase,Urine Negative (Negative); Nitrate,Urine Negative (Negative); Protein,Urine Negative (Negative); Urobilinogen,Urine 0.2 EU/dl (0.2)
[2025-01-04 04:02] LABS: RBC,Urine Occasional #/hpf (0-3); Squamous Epithelial Cell,Urine Occasional #/hpf (0-5); WBC,Urine Occasional #/hpf (0-3)
== END 2025-01-04 05:14 | disposition home or self-care (01) ==
PROVIDERS: Emergency Provider Emergency Medicine; PCP Nurse Practitioner Family
DX: M54.50 Low back pain, unspecified (principal)
CPT/HCPCS: 74177; 80053; 81001; 85025; 96374; 99284; J1885; Q9967

== ENCOUNTER 2025-01-14 06:56 | Outpatient (CLI) | payer OTHER, SELFPAY ==
[2025-01-14 07:01] LABS: Adenovirus F 40/41, stool Not Detected (NotDetected); Astrovirus Not Detected (NotDetected); Campylobacter Not Detected (NotDetected); Clostridium Difficile A/B, PCR Not Detected (NotDetected); Cryptosporidium Not Detected (NotDetected); Cyclospora Cayetanesis Not Detected (NotDetected); Entamoeba histolytica Not Detected (NotDetected); Enteroaggregative E coli Not Detected (NotDetected); Enteropathogenic E coli Not Detected (NotDetected); Enterotoxigenic E coli Not Detected (NotDetected); Giardia lamblia Not Detected (NotDetected); Norovirus Not Detected (NotDetected); Plesimonas Shigalloides, PCR Not Detected (NotDetected); Rotavirus A Not Detected (NotDetected); Salmonella, PCR Not Detected (NotDetected); Sapovirus Not Detected (NotDetected); Shiga-like toxin E coli Not Detected (NotDetected); Shigella Enterovasive E coli Not Detected (NotDetected); Vibrio Cholerae Not Detected (NotDetected); Vibrio, PCR Not Detected (NotDetected); Yersinia Entercolitica, PCR Not Detected (NotDetected)
[2025-01-14 07:31] LABS: INR 1.03 (0.9-1.1); Prothrombin Time 11.4 seconds (10.1-12.5)
[2025-01-14 07:52] LABS: Albumin Level 4.5 g/dl (3.5-5.0); Chloride 108 mmol/L (98-107); Potassium 4.3 mmoL/L (3.5-5.1); Sodium 138 mmol/L (136-145)
[2025-01-14 07:55] LABS: Alanine Aminotransferase 55 U/L (12-78); Albumin/Globulin Ratio 1.7 (1.1-1.8); Alkaline Phosphatase 62 U/L (38-126); Anion Gap 8.3 mEq/L (5-15); Aspartate Amino Transferase 50 U/L (17-59); Bilirubin,Total 0.4 mg/dl (0.2-1.3); Blood Urea Nitrogen 21 mg/dl (9-20); Carbon Dioxide 26 mmol/L (22.0-30.0); Estimated Glomerular Filt Rate 53 ml/min (>60); GFR (African American) 64 ML/MIN (>60); Globulin 2.7 g/dL (1.3-3.2); Total Protein,Serum 7.2 g/dl (6.3-8.2)
[2025-01-14 07:56] LABS: Calcium 9.6 mg/dl (8.4-10.2); Glucose 127 mg/dl (74-100)
[2025-01-17 14:11] LABS: Pancreatic Elastase, Fecal >800 (>200)
[2025-01-17 16:16] LABS: Calprotectin, Fecal 93 ug/g (0-120)
[2025-01-18 13:11] LABS: ALT (SGPT) P5P 54 IU/L (0-55); AST (SGOT) P5P 49 IU/L (0-40); Alpha 2-Macroglobulins, Qn 166 mg/dL (110-276); Apolipoprotein A-1 143 mg/dL (101-178); Bilirubin, Total 0.3 mg/dL (0.0-1.2); Cholesterol, Total 199 mg/dL (100-199); GGT 41 IU/L (0-65); Glucose 125 mg/dL (70-99); Haptoglobin 70 mg/dL (29-370); NASH Score 0.68 (0.00-0.25); Steatosis Score 0.69 (0.00-0.40); Triglycerides 261 mg/dL (0-149)
== END 2025-01-14 23:59 | disposition home or self-care (01) ==
LOC: LAB 06:57
PROVIDERS: PCP Nurse Practitioner Family; Visit Provider Nurse Practitioner Family
DX: R79.89 Other specified abnormal findings of blood chemistry (principal); R19.7 Diarrhea, unspecified
CPT/HCPCS: 80053; 82172; 82247; 82465; 82653; 82947; 82977; 83010; 83883; 83993; 84450; 84460; 84478; 85610; 87506

== ENCOUNTER 2025-06-23 12:39 | Day surgery (SDC) | payer OTHER, SELFPAY ==
[2025-06-22 15:33] VITALS: BMI 40.7
--- NOTE | 2025-06-22 17:16 | EXP.HP ---
History of Present Illness *Admission Date: 06/23/25 *History of present illness: Mr. Reid is a 54-year-old gentleman who is here for diagnostic EGD. The patient does have a history of GERD with bloating, belching and reflux.. The examination is deemed medically necessary for diagnostic EGD. The patient has been seen, interviewed and examined prior to the procedure by both myself and the anesthesia provider. [facility] Disclaimer: The information contained in this section may have been updated after the patient was seen, as this information can be updated by other users. Medical History COPD (chronic obstructive pulmonary disease) CAD (coronary artery disease) Abnormal nuclear cardiac imaging test (HFpEF) heart failure with preserved ejection fraction Edema of both lower extremities Abnormal electrocardiogram [ECG] [EKG] Hyperlipidemia Deviated septum Hearing loss Tinnitus Diastolic dysfunction Allergic rhinitis Nocturnal hypoxemia Restrictive lung disease Moderate persistent asthma Seasonal allergies Dyspnea on exertion History of 2019 novel coronavirus disease (COVID-19) Morbid obesity Blood pressure instability Right arm numbness Left arm numbness Obesity Gastroesophageal reflux disease Family history of heart disease Abnormal EKG Dyspnea Surgical History History of shoulder surgery Family History Other Cancer Diabetes Heart attack Social History (Updated 06/23/25 @ 13:30 by Chen Can RN) Smoking Status: Never smoker alcohol intake: never substance use type: denies use current occupational status: retired Travel in the last 8 weeks?: None household members: spouse housing: house current occupation: [employer] caffeine: Yes Have you lived/traveled outside [place] in past 30 days?: No Contact w/someone who lives/traveled outside US past 30 days?: No Exposure to someone with infectious disease in past 14 days?: No Do you have a fever (greater than 100.4 F or 38 C)?: No Have you tested positive for COVID-19?: No Exposed to someone with COVID-19 in past 14 days?: No Do you have a sore throat?: No Do you have a cough?: No Do you have any weakness?: No Do you have any diarrhea?: No Are you experiencing any unusual bleeding?: No Do you have any muscle aches/pain?: No Do you have any abdominal pain?: No Are you experiencing loss of taste or smell?: No Other Medical History Have you received the Flu Vaccine for this season: No Have you received the Pneumonia Vaccine: Yes Review of Systems Review of Systems Review of systems (narrative): Negative *Cardiovascular Comments: Negative *Gastrointestinal Comments: Negative *Genitourinary Comments: Negative *Musculoskeletal Comments: Negative *Neurologic Comments: Negative Meds Home Medications and Allergies Home Medications ?Medication ?Instructions ?Recorded ?Confirmed ?Type allopurinol 300 mg tablet 300 mg PO DAILY gout 04/21/20 06/23/25 History fenofibrate nanocrystallized 145 145 mg PO DAILY * 04/28/20 06/23/25 History mg tablet loratadine 10 mg capsule 10 mg PO DAILY allergies 04/28/20 06/23/25 History pen needle, diabetic 32 gauge x #120 ea 07/09/21 06/23/25 Rx 3/16 esomeprazole magnesium 20 mg 20 mg PO DAILY 07/17/21 06/23/25 History capsule,delayed release (Nexium) famotidine 20 mg tablet 20 mg PO HS 07/24/22 06/23/25 History losartan 50 mg tablet 50 mg PO DAILY High blood pressure 06/23/23 06/23/25 Rx #90 tabs mepolizumab 100 mg/mL subcutaneous 100 mg SQ Q4W #1 mL 06/15/24 06/23/25 Rx auto-injector (Nucala) blood sugar diagnostic (FreeStyle #10 ea 06/23/24 06/23/25 History Lite Strips) blood-glucose sensor (FreeStyle #1 ea 06/23/24 06/23/25 History Adalid 3 Plus Sensor device) metoprolol succinate 25 mg 25 mg PO HS High blood pressure 08/05/24 06/23/25 Rx tablet,extended release 24 hr #90 tabs Spiriva with HandiHaler 18 mcg and See Rx Instructions .Route 09/16/24 06/23/25 Rx inhalation capsules (tiotropium .COMPLEX #90 caps bromide) fluticasone 500 mcg-salmeterol 50 1 inh inhalation BID #180 ea 09/16/24 06/23/25 Rx mcg/dose blistr powdr for inhalation (Advair Diskus) ipratropium 0.5 mg-albuterol 3 mg 3 ml inhalation Q6H PRN shortness 09/16/24 06/23/25 Rx (2.5 mg base)/3 mL nebulization of breath or wheezing 30 days #90 soln mL montelukast 10 mg tablet 10 mg PO DAILY 90 days #90 tabs 09/16/24 06/23/25 Rx spironolactone 25 mg tablet 25 mg PO DAILY #90 tabs 09/29/24 06/23/25 Rx furosemide 40 mg tablet See Rx Instructions .Route 10/05/24 06/23/25 Rx .COMPLEX #90 tabs ammonium lactate 12 % topical cream 1 applic topical BID dry skin, 11/18/24 06/23/25 Rx callus care 30 days #385 grams hyoscyamine sulfate 0.125 mg 0.125 mg sublingual QID PRN 01/12/25 06/23/25 Rx sublingual tablet urgency/diarrhea #120 tabs empagliflozin 10 mg tablet 10 mg PO DAILY 01/27/25 06/23/25 History (Jardiance) Ventolin HFA 90 mcg/actuation See Rx Instructions .Route 02/14/25 06/23/25 Rx aerosol inhaler (albuterol sulfate) .COMPLEX #18 grams atorvastatin 80 mg tablet (Lipitor) 80 mg PO DAILY #90 tabs 02/22/25 06/23/25 Rx gabapentin 300 mg capsule 300 mg PO BID 03/18/25 06/23/25 History tirzepatide 12.5 mg/0.5 mL 12.5 mg SQ WEEKLY 03/18/25 06/23/25 History subcutaneous pen injector (Mounjaro) soluble corn fiber-inulin 1.7 gram 3 tab PO DAILY 04/18/25 06/23/25 History chewable tablet (Metamucil (inulin-corn fiber)) aspirin 81 mg tablet,delayed 81 mg PO DAILY #90 tabs 05/23/25 06/23/25 Rx release (Adult Low Dose Aspirin) fluticasone propionate 50 See Rx Instructions .Route 06/02/25 06/23/25 Rx mcg/actuation nasal .COMPLEX #16 grams spray,suspension New Prescriptions to Start Prescriptions: Allergies Allergy/AdvReac Type Severity Reaction Status Date / Time No Known Allergies Allergy Verified 06/23/25 13:19 Exam Data for Last 24 hours I & O for Last 24 hours: Intake & Output 06/19/25 06/20/25 06/21/25 06/22/25 23:59 23:59 23:59 23:59 Weight 260 lb *Routine HEENT Exam Head: Present normocephalic Eye: Present EOMI and PERRL ENT: Present mucous membranes moist *Routine Neck Exam Neck: Present supple *Routine Respiratory Exam Respiratory: Present CTA bilaterally *Routine Cardiovascular Exam Cardiovascular: Present RRR *Routine Abdominal Exam Abdominal: Present soft and normoactive bowel sounds; Absent tenderness *Routine Rectal Exam Rectal:: deferred *Routine Genitalia Exam Genitalia:: deferred *Routine Extremities Exam Extremities: Absent cyanosis, clubbing or edema *Routine Skin Exam Skin: Present warm; Absent rash *Routine Neurological Exam Neurological: Present alert and oriented X3 Assessment and Plan *Assessment and plan (1) Belching: Status: Acute Category: Medical Code(s): R14.2 - Eructation (2) Bloating: Status: Acute Category: Medical Code(s): R14.0 - Abdominal distension (gaseous) (3) GERD (gastroesophageal reflux disease): Status: Acute Category: Medical Code(s): K21.9 - Gastro-esophageal reflux disease without esophagitis Plan A/P: 1. Bloating, belching and GERD is the preprocedural diagnosis. The patient will be anesthetized/sedated using MAC sedation. The patient has been seen and examined. Cardiac and lung assessment prior to the examination is stable. Proceed with planned diagnostic EGD.
--- NOTE | 2025-06-23 07:02 | HMH.PROCNOTE ---
[facility] Procedure Note Date: 06/23/25 Time: 14:48 Procedure Note:: Upper Endoscopy Procedure Report: Esophagogastroduodenoscopy with cold biopsies Endoscopost: Duke Cid II, MD Referring Physician: HEYDI Ramirez Date of Procedure: June 23, 2025 Equipment: Olympus GIF-1100 standard upper endoscope Sedation: MAC sedation Indications: Mr. Reid is a 54-year-old gentleman who is here for diagnostic EGD. The patient does report excessive bloating, belching, gassiness and loose stools. The patient is on Nexium and famotidine and does not have much heartburn and has rare reflux at nighttime. Fiber Gummies have significantly helped with his loose stools. He did have a colonoscopy with me in 2019 and had no colon polyps and was given 10-year surveillance interval. The patient does have nonalcoholic fatty liver disease (fibrosis score F0 on VILLALTA FibroSure). The patient has had some elevated liver chemistries. The patient reports no dysphagia. He also reports no abdominal pain or nausea. He does have some early satiety and is on Mounjaro. He has lost 60 pounds. He was up last evening 4 times because of the digestive issues. The examination is deemed medically necessary for diagnostic EGD. Procedure: Prior to the procedure, a history and physical exam was performed, and patient's medications and allergies were reviewed. The risks, benefits and alternatives of the sedation and procedure were discussed with the patient. All questions were answered and informed consent was obtained. The patient was brought to the procedure room. Patient identification and proposed procedure were verified by the physician and the nurse. The patient was placed in a left lateral decubitus position and the scope was passed under direct vision. Throughout the procedure, the patient's blood pressure, pulse, and oxygen saturations were monitored continuously. The upper GI endoscopy was accomplished without difficulty. The patient tolerated the procedure well. Findings: The scope was passed directly into the upper esophagus and advanced to the third portion of the duodenum. The post bulbar duodenum, ampulla and duodenal bulb were normal with normal mucosa and conniventes. 2 cold biopsies were taken from the second portion of the duodenum for the disaccharidase assay. The scope was withdrawn through a normal duodenal bulb and pylorus into the stomach. There was mild linear reactive gastropathy of the antrum with bile reflux. The body and fundus of the stomach were normal. Cold biopsies were taken at the incisura. Upon retroflexion there was no hiatal hernia.. The scope was then withdrawn into the esophagus. There was no evidence of reflux esophagitis or Piña's. Cold biopsies were taken at the GE junction. There were some mild tertiary contractions and mild esophageal dysmotility. The remainder of the esophageal mucosa was normal. Impression: 1. Nonerosive GERD with mild esophageal dysmotility 2. Bile reflux with mild linear reactive gastropathy of antrum. Plan: I will follow-up the biopsies and disaccharidase assay. If the disaccharidase assay is normal, would consider low FODMAP diet and Fodzyme. I would continue fiber bulk (fiber Gummies). I would consider weaning off of Nexium and switching to [id number] herbal Iberogast. Because PPI use decreases gastric acid secretion, it has been suggested that PPI use could lead to increased risk of SIBO (small intestinal bacterial overgrowth) and colonic bacterial overgrowth syndrome. This would naturally increase colonic fermentation, gas formation and bloating.
[2025-06-23 13:22] VITALS: BP 149/82; PULSE 72; RESP 16; TEMP 36.1; O2SAT 97; BMI 40.7
[2025-06-23] MEDS: LACTATED RINGERS 1000ML 1,000 ML 50 ML IV (13:35)
[2025-06-23 13:38] LABS: POC Glucose,Bedside 73 gm/dL (70-110)
--- NOTE | 2025-06-23 14:07 | P.PNANES_ITS ---
[facility] Disclaimer: The information contained in this section may have been updated after the patient was seen, as this information can be updated by other users. Medical History COPD (chronic obstructive pulmonary disease) CAD (coronary artery disease) Abnormal nuclear cardiac imaging test (HFpEF) heart failure with preserved ejection fraction Edema of both lower extremities Abnormal electrocardiogram [ECG] [EKG] Hyperlipidemia Deviated septum Hearing loss Tinnitus Diastolic dysfunction Allergic rhinitis Nocturnal hypoxemia Restrictive lung disease Moderate persistent asthma Seasonal allergies Dyspnea on exertion History of 2019 novel coronavirus disease (COVID-19) Morbid obesity Blood pressure instability Right arm numbness Left arm numbness Obesity Gastroesophageal reflux disease Family history of heart disease Abnormal EKG Dyspnea Surgical History History of shoulder surgery Family History Other Cancer Diabetes Heart attack Social History (Updated 06/23/25 @ 13:30 by Chen Can RN) Smoking Status: Never smoker alcohol intake: never substance use type: denies use current occupational status: retired Travel in the last 8 weeks?: None household members: spouse housing: house current occupation: [email or web address] caffeine: Yes Have you lived/traveled outside [place] in past 30 days?: No Contact w/someone who lives/traveled outside [place] past 30 days?: No Exposure to someone with infectious disease in past 14 days?: No Do you have a fever (greater than 100.4 F or 38 C)?: No Have you tested positive for COVID-19?: No Exposed to someone with COVID-19 in past 14 days?: No Do you have a sore throat?: No Do you have a cough?: No Do you have any weakness?: No Do you have any diarrhea?: No Are you experiencing any unusual bleeding?: No Do you have any muscle aches/pain?: No Do you have any abdominal pain?: No Are you experiencing loss of taste or smell?: No [facility] Anesthesia Checklist Patient Identification Patient Identification: Arm Band Structural Data Admitted From: Home Planned Operative Procedure/s: EGD Consent for Planned Operative Procedure(s) Verified: Yes Verified Documents: Surgical Consent and History and Physical NPO Status Verified Time NPO: 00:00 Additional verifications Anesthesia Reactions: No Hx Blood Transfusions: No Blood Transfusion Reaction: No Airway Assessment Mallampati Score:: Class II C-Spine Mobility Assessed: Yes TMJ Mobility Assessed: Yes Dentition: Dentures-good fit (upper and lower partial removed) Neurological Assessment Level of Consciousness: Awake, Alert and Appropriate Anesthesia Plan Anesthesia Risk discussed: Yes Anesthesia Plan: Verified ASA Class: III Anesthesia Type: MAC
[2025-06-23 14:49] VITALS: BP 126/75; PULSE 77; RESP 18; TEMP 36.2; O2SAT 93
[2025-06-23 14:59] VITALS: BP 104/67; PULSE 69; O2SAT 96
[2025-06-23 15:09] VITALS: BP 130/72; PULSE 73; O2SAT 98
[2025-06-23 15:19] VITALS: BP 129/78; PULSE 66; O2SAT 97
[2025-06-29 13:12] LABS: Interpretation Notes (.); Lactase 35.18 (>/= 14.0); Maltase 250.83 (>/= 110.0); Palatinase 19.16 (>/= 8.5); Reference Notes (.); Sucrase 73.15 (>/= 25.0)
== END 2025-06-23 15:19 | disposition home or self-care (01) ==
PROVIDERS: PCP Nurse Practitioner Family; Visit Provider Internal Medicine Gastroenterology
PROC: 0DJ08ZZ Inspection of Upper Intestinal Tract, Via Natural or Artificial Opening Endoscopic (ICD-10-PCS; CPT 43239; principal; 2025-06-23 14:30)
DX: K21.00 Gastro-esophageal reflux disease with esophagitis, without bleeding (principal); K31.89 Other diseases of stomach and duodenum; K76.0 Fatty (change of) liver, not elsewhere classified; K22.4 Dyskinesia of esophagus; E78.5 Hyperlipidemia, unspecified; I25.10 Atherosclerotic heart disease of native coronary artery without angina pectoris; I50.30 Unspecified diastolic (congestive) heart failure; J44.9 Chronic obstructive pulmonary disease, unspecified; Z79.82 Long term (current) use of aspirin
CPT/HCPCS: 43239; 82657; 82962; J2003; J2704; J7120

== ENCOUNTER 2025-08-05 08:24 | Outpatient (CLI) | payer OTHER, SELFPAY ==
--- OUTSIDE RECORDS SUMMARY | 2022-06-20 10:30 | XMS_ITS | Continuity of Care Document ---
Author Organization [facility] o Address [address] [place] [address] Phone Care Team Providers Care Steamer Operator Name Role Phone Manfred DE LA ROSA, Britton Unavailable Unavailable Procedures Procedure Date Independant Medical Exam Advance Directives Directive Yes / No Effective Date File Name No Information Encounters Encounter Description Practice Location Reason(s) For Visit Diagnoses Date Provider Providers Copied on Encounter [facility] [place], [address] [place], [address], [place] tel:[phone] [address] [place] No Information 2 Manfred Jarquin. [address], [place], [place], [id number] , [place]. tel:[phone] Referring Provider: Britton Abernathy, [address], [place], [address] . tel:[phone] Family History Family Member Type Diagnosis Age At Onset No Information Payers Payer name Insurance type Covered libertarian ID Authoriza tion(s) No Information Social History Type Description Quantity Date Captured Comments Sex Male Smoking Status No Information Chief Complaint And Reason For Visit No Information Reason For Referral Reason For Referral No Information History Of Present Illness Encounter Date Complaint History Of Prese nt Illness No Information Functional Status Date Functional Assessmen t No Information Instructions Date Instruction Additional Infor mation No Information Assessments Type Assessment Date No Information Patient Care Teams Name Effective Dates (start - stop) Status Members No Information
--- OUTSIDE RECORDS SUMMARY | 2025-08-05 08:28 | XMS_ITS | Continuity of Care Document ---
Author Organization [facility] Address [address] [place] [address] Care Team Providers Care Division Officer [employer]apons [employer] Name Role Phone JOSESITO CAN Primary Care Provider Assessment No assessment recorded. Plan of Treatment Reminders Order Date Submit Date Provider Last Modified By Organization Details Last Modified Time Details Appointments Diabetic F/U 2025 09:00A Lisandra Can APRN Not available Not available Not available Lab None recorded. Referral None recorded. Procedures None recorded. Surgeries None recorded. Imaging None recorded. Medication Orders triamcino lone acetonide 0.1 % topical cream 2024 025 [facility] 591, [address], [address], 06/27/2025 13:40:19 Patient TargetsNo targets recorded. Patient InstructionsNo instructions recorded. Reason for Referral None Reported. Results Created Date Observation Date Name Description Value Unit Range Abnormal Flag Note LastModifiedBy Organization Detail LastModifiedTime Result Notes None recorded. Problems Name Problem SNOMED Code Status Onset Date Resolution Date Notes Provider Name and Address Organization Details Recorded Time Type 2 diabetes mellitus 59049023 Active Ashley Martinez null, [place] [facility] 2 11:12:21 Asthma 986031116 Active Ashley Martinez null, [place] [facility] 2 11:12:35 Hypertensi ve disorder 32438244 Active Ashley Martinez null, [place] - [facility] 2 11:12:45 Seasonal allergic rhinitis 817561416 Active Ashley Martinez null, [place] - [facility] 2 11:13:17 Obesity 019244167 Active Ashley Michelle null, [place] - [facility] 2 11:13:32 Irritable bowel syndrome 05431965 Active 2022 Josesito Can, ACTIVITY THERAPIST [address], [place], [address] , [place] - [facility] 3 15:45:37 Peripheral neuropathy due to type 2 diabetes mellitus 5938517847475 Active 2022 Josesito Can, ACTIVITY THERAPIST [address], [place], [address] , [place] - [facility] 3 15:31:42 Sleep apnea 89070720 Active 2022 Josesito Can, ACTIVITY THERAPIST [address], [place], [address] , [place] - [facility] 3 15:31:58 Neuropathy 846134537 Active 2023 Josesito aCn, ACTIVITY THERAPIST [address], [place], [address] , [place] - [facility] 4 09:27:16 Chronic neck pain 7857474812516 Active 2024 Aimee Stears null, [place] - [facility] 5 10:33:42 Chronic kidney disease stage 3 240478133 Active 2024 Josesito Can, ACTIVITY THERAPIST [address], [place], [address] , [place] - [facility] 5 08:43:16 Hyperlipid emia 48966305 Active 2024 Aimee Stears null, [place] - [facility] 5 08:45:06 Chronic gout without tophus 692195623 Active 2024 Aimee Stears null, [place] - [facility] 5 08:46:30 Bilateral chronic pain of upper limbs 9252347172115 9106 Active 2024 Josesito Can, ACTIVITY THERAPIST [address], [place], [address] , [place] - [facility] 5 15:46:00 Problem Notes None recorded. Procedures Surgical History Date Name Laterality Status Provider Name and Address Organization Details Recorded Time 08/20/19 22 Orthopedic Surgery completed Aimee Roper [place] - [facility] 01/06/2024 08:17:13 03/07/20 21 Arthroscopic Surgery completed Ashley MCMAHON - [facility] 07/26/2022 11:05:22 Hernia Repair completed Aimee Roper [place] - [facility] 01/06/2024 08:17:07 Imaging Results None recorded. Procedure Notes None recorded. Medical Equipment None Reported. Allergies Allergen ID Allergen Name Allergen Category Reaction Reaction Severity Criticality Documentation Date Start Date Code Code System Note Provider Name and Address Organization Details Recorded Time 698537 Lipitor medicatio n rash moderate high 07/26/2022 47613 5 RxNorm Ashley nichole, [place] - [facility] 11:06:03 245710 atorvasta tin medicatio n rash Not available Not available 06/27/20252020 89396 RxNorm Aimee Jacquelin null, [place] - [facility] 13:09:43 Medications Name Sig Start Date Stop Date Status Note LastModified by Organization Details LastModified Time losartan 50 mg tablet TAKE 1 TABLET BY MOUTH ONCE DAILY FOR HIGH BLOOD PRESSURE active Not Available Not Available No t Available amoxicill in 500 mg capsule TAKE 1 CAPSULE BY MOUTH THREE TIMES DAILY UNTIL GONE 04/08 completed Not Available Not Available Not Available furosemid e 40 mg tablet TAKE 1 TABLET BY MOUTH ONCE DAILY active Not Available Not Available No t Available fluconazo le 100 mg tablet TAKE 1 TABLET BY MOUTH ONCE DAILY MAY REPEAT AFTER 3 DAYS IF NO IMPROVEM ENT 01/31 completed Not Available Not Available Not Available atorvasta tin 40 mg tablet TAKE 1 TABLET BY MOUTH ONCE DAILY 01/31 completed increase d to 80mg Not Available Not Available Not Available methocarb jumana 500 mg tablet TAKE 2 TABLETS BY MOUTH EVERY 6 HOURS NEEDED FOR PAIN active Not Available Not Available No t Available atorvasta tin 80 mg tablet TAKE 1 TABLET BY MOUTH ONCE DAILY active Not Available Not Available No t Available atorvasta tin 20 mg tablet TAKE 1 TABLET BY MOUTH ONCE DAILY 07/08 completed Not Available Not Available Not Available ipratropi um 0.5 mg-albute rol 3 mg (2.5 mg base)/3 mL nebulizat ion soln USE 3 ML IN NEBULIZE R EVERY 6 HOURS NEEDED FOR SHORTNES S OF BREATH FOR WHEEZING active Not Available Not Available No t Available ibuprofen 800 mg tablet TAKE 1 TABLET BY MOUTH EVERY 8 HOURS NEEDED FOR PAIN 07/23 completed Not Available Not Available Not Available meloxicam 15 mg tablet TAKE 1 TABLET BY MOUTH ONCE DAILY WITH FOOD 07/26 completed Not Available Not Available Not Available FreeStyle Lancets 28 gauge USE 1 TO CHECK GLUCOSE TWICE DAILY active Not Available Not Available No t Available ondansetr on HCl 4 mg tablet 07/26 completed Not Available Not Available Not Available aspirin 81 mg tablet,de layed release TAKE 1 TABLET BY MOUTH ONCE DAILY active Not Available Not Available No t Available triamcino lone acetonide 0.1 % topical cream APPLY CREAM EXTERNAL LY TWICE DAILY TO AFFECTED AREA active Not Available Not Available No t Available spironola ctone 25 mg tablet TAKE 1 TABLET BY MOUTH ONCE DAILY active Not Available Not Available No t Available oxycodone -acetamin ophen 5 mg-325 mg tablet 07/26 completed Not Available Not Available Not Available famotidin e 20 mg tablet Take 1 tablet by mouth once daily 2024 active Not Available Not Available Not Avai lable oseltamiv ir 75 mg capsule Take 1 capsule every day by oral route for 10 days. 07/23 completed Not Available Not Available Not Available metformin 1,000 mg tablet TAKE 1 TABLET BY MOUTH TWICE DAILY WITH A MEAL 04/08 completed Not Available Not Available Not Available hyoscyami ne 0.125 mg sublingua l tablet DISSOLVE 1 TABLET UNDER THE TONGUE 4 TIMES DAILY NEEDED FOR URGENCY/ DIARRHEA active Not Available Not Available No t Available lidocaine 5 % topical patch USE 1 PATCH TOPICALL Y ONCE DAILY NEEDED FOR PAIN LEAVE ON MOST PAINFUL AREA FOR UP TO 12 HOURS active Not Available Not Available No t Available Advair Diskus 250 mcg-50 mcg/dose powder for inhalatio n INHALE 1 PUFF BY MOUTH TWICE DAILY 07/26 completed Not Available Not Available Not Available Advair Diskus 500 mcg-50 mcg/dose powder for inhalatio n INHALE 1 DOSE BY MOUTH TWICE DAILY active Not Available Not Available No t Available gabapenti n 300 mg capsule TAKE 1 CAPSULE BY MOUTH TWICE DAILY active Not Available Not Available No t Available aspirin 81 mg chewable tablet Chew 1 tablet every day by oral route. 07/08 completed Not Available Not Available Not Available monteluka st 10 mg tablet TAKE 1 TABLET BY MOUTH ONCE DAILY active Not Available Not Available No t Available ammonium lactate 12 % topical cream APPLY CREAM TOPICALL Y TWICE DAILY FOR DRY SKIN active Not Available Not Available No t Available allopurin ol 300 mg tablet TAKE 1 TABLET BY MOUTH ONCE DAILY active Not Available Not Available No t Available hydrochlo rothiazid e 25 mg tablet TAKE 1 TABLET BY MOUTH ON FRIDAY, AND 06/25 completed Not Available Not Available Not Available gabapenti n 100 mg capsule Take 1 capsule twice a day by oral route at bedtime for 30 days. 08/20 completed Not Available Not Available Not Available metoprolo l succinate ER 25 mg tablet,ex tended release 24 hr TAKE 1 TABLET BY MOUTH AT BEDTIME NIGHTLY FOR HIGH BLOOD PRESSURE active Not Available Not Available No t Available azelastin e 137 mcg (0.1 %) nasal spray USE 2 SPRAY(S) IN EACH NOSTRIL AT BEDTIME NIGHTLY FOR 90 DAYS 04/08 completed Not Available Not Available Not Available fluticaso ne propionat e 50 mcg/actua tion nasal spray,rell pension USE 2 SPRAY(S) IN EACH NOSTRIL ONCE DAILY active Not Available Not Available No t Available metformin ER 500 mg tablet,ex tended release 24 hr Take 1 tablet every day by oral route for 30 days. 07/23 completed Not Available Not Available Not Available Ventolin HFA 90 mcg/actua tion aerosol inhaler INHALE 2 PUFFS BY MOUTH EVERY 6 HOURS NEEDED FOR SHORTNES S OF BREATH FOR WHEEZING active Not Available Not Available No t Available Vitamin C 500 mg capsule,e xtended release Take by oral route. 09/30 completed Not Available Not Available Not Available magnesium 200 mg tablet Take 1 tablet every day by oral route. 09/30 completed Not Available Not Available Not Available insulin aspart (U-100) 100 unit/mL (3 mL) subcutane ous pen INJECT 15 UNITS SUBCUTAN EOUSLY BEFORE MEAL(S) 07/26 completed Not Available Not Available Not Available zinc 50 mg capsule Take by oral route. 09/30 completed Not Available Not Available Not Available Spiriva with [employer] r 18 mcg and inhalatio n capsules INHALE 1 PUFF BY MOUTH ONCE DAILY active Not Available Not Available No t Available BD Ultra-Fin e Mini Pen Needle 31 gauge x 10/24 USE 1 PEN NEEDLE SUBCUTAN EOUSLYBE FORE MEAL(S) AND AT BEDTIME active Not Available Not Available No t Available vitamin B complex 09/30 completed Not Available Not Available Not Available albuterol sulfate as needed 09/30 completed Not Available Not Available Not Available Elderberr y 09/30 completed Not Available Not Available Not Available fenofibra te nanocryst allized 145 mg tablet TAKE 1 TABLET BY MOUTH ONCE DAILY WITH FOOD active Not Available Not Available No t Available hydrochlo rothiazid e 12.5 mg tablet TAKE 1 TABLET BY MOUTH ON FRIDAY, , AND 11/28 completed Not Available Not Available Not Available FreeStyle Lite Meter kit USE DIRECTED active Not Available Not Available No t Available FreeStyle Lite Strips USE 1 STRIP TO CHECK GLUCOSE THREE TIMES DAILY DIRECTED 2023 active Not Available Not Available Not Avai lable Lantus Solostar U-100 Insulin 100 unit/mL (3 mL) subcutane ous pen INJECT 40 UNITS SUBCUTAN EOUSLY AT NIGHT 07/26 completed Not Available Not Available Not Available azelastin e 205.5 mcg (0.15 %) nasal spray USE 2 SPRAYS IN EACH NOSTRIL AT BEDTIME 11/28 completed Not Available Not Available Not Available Xifaxan 550 mg tablet prn 04/08 completed Not Available Not Available Not Available Creon 36,000 unit-114, 000 unit-180, 000 unit capsule,d elayed release TAKE 1 CAPUSLE BY MOUTH WITH MEALS AND/ OR SNACKS. MAX DAILY DOSE 6 CAPSULES PER DAY active Not Available Not Available No t Available Jardiance 10 mg tablet Take 1 tablet by mouth once daily 2024 active Not Available Not Available Not Avai lable Jardiance 25 mg tablet TAKE 1 TABLET BY MOUTH ONCE DAILY 01/31 completed Not Available Not Available Not Available Trulicity 1.5 mg/0.5 mL subcutane ous pen injector INJECT 0.5ML SUBCUTAN EOUSLY ONCE A WEEK 11/28 completed Not Available Not Available Not Available oxygen 3l nc at night 05/30 completed Not Available Not Available Not Available Ozempic 0.25 mg or 0.5 mg (2 mg/1.5 mL) subcutane ous pen injector Inject 0.5 mg every week by subcutan eous route. 07/08 completed Not Available Not Available Not Available Nucala 100 mg/mL subcutane ous auto-inje ctor INJECT 1ML UNDER THE SKIN ONCE A MONTH active Not Available Not Available No t Available Ozempic 1 mg/dose (4 mg/3 mL) subcutane ous pen injector active Not Available Not Available Not Available BinaxNOW COVID-19 Ag Self Test kit TEST DIRECTED TODAY 01/05 completed Not Available Not Available Not Available vitamin D3 1,250 mcg (50,000 unit)-vit davis K2 200 mcg capsule Take by oral route. 09/30 completed Not Available Not Available Not Available Ozempic 2 mg/dose (8 mg/3 mL) subcutane ous pen injector Inject 2 mg every week by subcutan eous route. 11/18 completed Not Available Not Available Not Available Mounjaro 7.5 mg/0.5 mL subcutane ous pen injector INJECT 1 PEN SUBCUTAN EOUSLY ONCE A WEEK 04/04 completed Not Available Not Available Not Available Mounjaro 5 mg/0.5 mL subcutane ous pen injector INJECT 1 PEN SUBCUTAN EOUSLY ONCE A WEEK active Not Available Not Available No t Available Mounjaro 15 mg/0.5 mL subcutane ous pen injector INJECT 1 PEN-INJE CTOR SUBCUTAN EOUSLY ONCE A WEEK active Not Available Not Available No t Available Mounjaro 10 mg/0.5 mL subcutane ous pen injector INJECT 1 PEN-INJE CTOR SUBCUTAN EOUSLY ONCE A WEEK 04/04 completed Not Available Not Available Not Available Mounjaro 12.5 mg/0.5 mL subcutane ous pen injector INJECT 1 PEN SUBCUTAN EOUSLY ONCE A WEEK 07/05 completed Not Available Not Available Not Available Mounjaro 2.5 mg/0.5 mL subcutane ous pen injector active Not Available Not Available Not Available Ozempic 0.25 mg or 0.5 mg (2 mg/3 mL) subcutane ous pen injector INJECT 0.5 MG SUBCUTAN EOUSLY ONCE A WEEK 07/08 completed Not Available Not Available Not Available [employer] Adalid 3 Plus Sensor device USE DIRECTED CHANGE EVERY 15 DAYS active Not Available Not Available No t Available Vitals Date Recorded Body height Respiratory rate Body mass index (BMI) Body weight Heart rate Oxygen saturation Systolic And Diastolic Provider Name and Address Organization Details Last Updated DateTime 5 170.18 cm 18 /min 41.8 kg/m2 980161. 16 g 68 /min 98 % 118/77.97 mm[Hg] Aimee Roper [place] - [facility] 5 13:09:02 Social History Question Answer Notes LastModified by Organizat ion Details LastModified Time Tobacco Smoking Status Never Smoker Ashley nichole, [place] - [facility] 07/26/2022 11:05:16 Do You Have An Advance Directive? No Information n ot available 07/26/2022 Are You Blind Or Do You Have Difficulty Seeing? No Information n ot available 04/08/2023 Is Blood Transfusion Acceptable In An Emergency? Yes Information not available 07/26/2022 What Is Your Level Of Caffeine Consumption? Moderate Information not available 07/26/2022 How Much Tobacco Do You Chew? None Information not available 07/26/2022 In The 14 Days Before Symptom Onset, Have You Had Close Contact With A Laboratory-confirm ed COVID-19 While That Case Was Ill? No Information n ot available 06/02/2023 In The 14 Days Before Symptom Onset, Have You Had Close Contact With A Person Who Is Under Investigation For COVID-19 While That Person Was Ill? No Information not available 06/02/2023 Have You Been To An Area Known To Be High Risk For COVID-19? No Information not available 06/02/2023 Are You Deaf Or Do You Have Serious Difficulty Hearing? No Information not available 07/26/2022 What Type Of Diet Are You Following? REGULAR Information n ot available 04/08/2023 Have You Processed Blood Or Body Fluids From An Ebola Virus Disease Patient Without Appropriate PPE? No Information not available 06/02/2023 Do You Reside In Or Have You Traveled To An Area Where Ebola Virus Transmission Is Active? No Information not available 06/02/2023 What Is The Highest Grade Or Level Of School You Have Completed Or The Highest Degree You Have Received? [id number] Information not available 07/26/2022 Have There Been Any Changes To Your Family Or Social Situation? No Information no t available 04/08/2023 What Is The Fluoride Status Of Your Home? Unknown Information not available 04/08/2023 Do You Have A Medical Power Of Full Charge Bookkeeper? No Information not available 04/08/2023 What Was The Date Of Your Most Recent Tobacco Screening? 08/20/2024 Information not available 08/20/2024 Do You Use Protection During Sex? No Information not available 07/26/2022 Do You Use Protection Against STDs? No Information not available 07/26/2022 What Is Your Relationship Status? Information not available 07/26/2022 Do You Use Your Seat Belt Or Car Seat Routinely? Yes Information not available 07/26/2022 Are You Sexually Active? Yes Information not available 07/26/2022 Do You Have Smoke And Carbon Monoxide Detectors In Your Home? Yes Information not available 07/26/2022 Are You Passively Exposed To Smoke? Yes Information no t available 07/26/2022 Do You Use Sunscreen Routinely? No Information not available 07/26/2022 Has Tobacco Cessation Counseling Been Provided? No Information not available 04/08/2023 Do You Have Difficulty Walking Or Climbing Stairs? No Information not available 04/08/2023 Sex: Male Functional Status Question Answer Note LastModified by Organizat ion Details LastModified Time Do you or have you ever used smokeless tobacco? Former smokeless tobacco user Information not available 07/26/2022 Are you currently employed? Yes Information not available 07/26/2022 Do you have transportation difficulties? No Information not available 04/08/2023 Are you able to care for yourself independently? Yes Information not available 07/26/2022 Do you have difficulty dressing, bathing, grooming, or toileting? No Information not available 04/08/2023 Do you or have you ever used e-cigarettes or vape? Never used electronic cigarettes Information not available 07/26/2022 What is your exercise level? Moderate Information not available 07/26/2022 Do you use any illicit or recreational drugs? No Information not available 04/08/2023 Do you or have you ever used any other forms of tobacco or nicotine? Yes Information not available 04/08/2023 What is your level of alcohol consumption? None Information not available 07/26/2022 Are you able to walk independently without assistance or assistive devices? YESWOREST Information not available 04/08/2023 Do you have difficulty doing errands alone? No Information not available 04/08/2023 What is your occupation? [employer] Information not available 07/26/2022 Mental Status Question Answer Note LastModified by Organizat ion Details LastModified Time Do you feel stressed (tense, restless, nervous, or anxious, or unable to sleep at night)? [id number] Information not available 07/26/2022 Do you have difficulty concentrating, remembering or making decisions? No Information no t available 04/08/2023 Family History Relationship Description Onset Age of this Age Resolved Age Notes LastModified by Organization Details LastModified Time Paternal Grandfather Malignant neoplastic disease cbuckler Not available 2021 11:04:58 Paternal Grandfather Malignant neoplasm of colon cbuckler Not available 2021 11:04:58 Father Malignant neoplasm of lung cbuckler Not available 2021 11:04:58 Mother Diabetes mellitus cbuckler Not available 2021 11:04:58 Mother Heart disease cbuckler Not available 2021 11:04:58 Brother Diabetes mellitus cbuckler Not available 2021 11:04:58 Daughter Epilepsy cbuckler Not availab le 07/26/2022 11:04:58 Medical History Condition Response Diabetes Y Gout Y Hypercholesterolemia Y Irritable Bowel Syndrome Y Hypertension Y Asthma Y Immunizations Vaccine Type Date Status Note Provider Nam e and Address Organization Details Recorded Time Tdap 04/08/2024 completed Josesito Can APRN [address], [place], [address], [place] - [facility] 04/08/2024 11:44:24 Past Encounters Encounter ID Performer Location Encounter Start Date Encounter Closed Date Diagnosis/Indication Diagnosis SNOMED-CT Code Diagnosis ICD10 Code Diagnosis IMO Codes Diagnosis Note [id number] Josesito Can APRN [address] [address] 06/27/2025 13:00:07 06/27/2025 13:39:50 Acute contact dermatitis 329996065 L25.9 364 apply with benadrylif worsen or no improvemen t return Health Concerns Section Related Observation LastModified by Organization Detai ls LastModified Time None Recorded Concern Status LastModified by Organization Details LastModified Time None Recorded Payers Encounter Date Sequence Insurance Name Policy Number Policy Elam Covered Member ID Elam Member ID Guarantor Name 06/27/2025 1 [employer] [facility] (MEDICAID HMO) [place] [id number] [place] Notes Date Note Type Note Provider Name and Address Organization Details Recorded Time 06/27/2025 text/html ROS as noted in the HPI 55 year old male who presents to the office today with concerns ofitchy rash on the back of bilateral thighshas had about 2-3 weekscortizone does not help Josesito Can APRN [address], [place], [address], [place] - [facility] 06/27/2025 13:41:47
--- OUTSIDE RECORDS SUMMARY | 2025-08-05 08:28 | XMS_ITS | Clinical Summary ---
Author Organization [facility] Address [address] [place] [address] Care Team Providers Care [employer] Folder Operator Name Role Phone Yu Araiza LASHAE Primary Care Provider [phone] Allergies No known active allergies Medications acetaminophen (Tylenol) 500 MG tablet Take 1 tablet (500 mg) by mouth if needed. Active Ventolin HFA 108 (90 Base) MCG/ACT inhaler Inhale 2 puffs if needed. 4 Active allopurinol (Zyloprim) 300 MG tablet Take 1 tablet (300 mg) by mouth 1 (one) time each day. Active EQ Aspirin Adult Low Dose 81 MG EC tablet Take 1 tablet (81 mg) by mouth 1 (one) time each day. 4 Active atorvastatin (Lipitor) 40 MG tablet Take 1 tablet (40 mg) by mouth 1 (one) time each day. 4 Active Continuous Glucose Sensor (FreeStyle Adalid [address]) [facility] [place] 4 Active Jardiance 25 MG Take 1 tablet (25 mg) by mouth 1 (one) time each day. 4 Active esomeprazole (NexIUM) [address] capsule Take 1 capsule (20 mg) by mouth 1 (one) time each day with breakfast. Active famotidine (Pepcid) 20 MG tablet Take 1 tablet (20 mg) by mouth at night if needed. 4 Active fenofibrate (Tricor) 145 MG tablet Take 1 tablet (145 mg) by mouth 1 (one) time each day. Take with food. 4 Active fluticasone (Flonase) 50 MCG/ACT nasal spray Administer 2 sprays into affected nostril(s) 1 (one) time each day. Active Advair Diskus 500-50 MCG/ACT diskus inhaler Inhale 1 puff 2 (two) times a day. 4 Active FREESTYLE LITE test strip 1 each by Other route if needed. 4 Active losartan (Cozaar) 50 MG tablet Take 1 tablet (50 mg) by mouth 1 (one) time each day. 4 Active Nucala 100 MG/ML solution auto-injector Inject 100 mg under the skin every 28 (twenty-eight) days. 4 Active metoprolol succinate XL (Toprol-XL) 25 MG 24 hr tablet Take 1 tablet (25 mg) by mouth 1 (one) time each day. 4 Active montelukast (Singulair) 10 MG tablet Take 1 tablet (10 mg) by mouth 1 (one) time each day. 4 Active Spiriva HandiHaler [address] 1 capsule (18 mcg) into inhaler and inhale 1 (one) time each day. 4 Active furosemide (Lasix) 40 MG tablet Take 1 tablet (40 mg) by mouth 1 (one) time each day. 5 Active gabapentin (Neurontin) 300 MG capsule Take 1 capsule (300 mg) by mouth 2 (two) times a day. 5 Active ipratropium-al buterol (Duo-Neb) 0.5-2.5 mg/3 mL nebulizer solution USE 3 ML IN NEBULIZER EVERY 6 HOURS NEEDED FOR SHORTNESS OF BREATH FOR WHEEZING 5 Active Mounjaro 12.5 MG/0.5ML solution auto-injector solution pen-injector INJECT 1 SYRINGE SUBCUTANEOUSLY ONCE A WEEK 5 Active hyoscyamine (Levsin) 0.125 MG SL tablet DISSOLVE 1 TABLET UNDER THE TONGUE 4 TIMES DAILY NEEDED FOR URGENCY/DIARRHEA Active Immunizations Immunization Administration Dates Next Due Tdap 04/08/2024 Social History Tobacco Use Types Packs/Day Years Used Date Smoking Tobacco: Never Smokeless Tobacco: Never Tobacco Cessation:Counseling Given: Not Answered Alcohol Use Standard Drinks/Week Comments Never 0 (1 standard drink = 0.6 oz pur e alcohol) PHQ-2 Answer Date Recorded Patient Health Questionnaire-2 Score 0 06/23/2024 Sex and Gender Information Value Date Recorded Sex Assigned at Not on file Legal Sex Male 7:38 PM EDT Gender Identity Not on file Sexual Orientation Not on file Last Filed Vital Signs Vital Sign Reading Time Taken Comments Blood Pressure 115/74 03/24/2025 8:31 AM EDT Pulse 69 03/24/2025 8:31 AM EDT Temperature 36.6 C (97.8 F) 09/23/2024 9:28 AM EST Respiratory Rate 16 09/23/2024 9:28 AM EST Oxygen Saturation 94% 03/24/2025 8:31 AM EDT Inhaled Oxygen Concentration - - Weight 126 kg (278 lb 9.6 oz) 03/24/2025 8:31 AM EDT Height 170.2 cm (5' 7 ) 03/24/2025 8:31 AM EDT Body Mass Index 43.63 03/24/2025 8:31 AM EDT Plan of Treatment Upcoming Encounters Date Type Department Care Team ([facility] st Contact Info) Description 03/23/2026 8:00 AM EDT Clinical Support [facility] Laboratory Services [address], [address] [place] [address] 03/23/2026 9:40 AM EDT Office Visit [facility] Nephrology, Bone & Mineral Metabolism [address], [address] [place] [id number] Chacho Amador MD [address] [place] [address] [phone] Health Maintenance Due Date Last Done Comments [facility]-Diabetes: Hemoglobin A1C 1971 [facility]-HIV Screening 1971 [facility]-Hepatitis C Screening 1971 [facility]-Infant/Child/Adol SDOH Screenings 1971 [id number] Vaccine (#1) 1971 Diabetes: Dental Exam 1981 [facility]- SDOH Screenings 1989 [facility]-Adult SDOH Screenings 1989 [facility]-Hepatitis B Vaccines (1 of 3 - 19+ 3-dose series) 1990 [facility]-Pneumococcal Vaccine: 50 + Years (1 of 2 - PCV) 1990 CT Colonography 2016 Colonoscopy 2016 FIT 2016 FOBT 2016 Sigmoidoscopy 2016 [facility]-Zoster Vaccines (1 of 2) 2021 [facility]-Influenza Vaccine (#1) 2025 [facility]-Depression Screening 06/23/2025 06/23/2024 FIT-DNA 12/06/2026 12/07/2023 [facility]-Colorectal Cancer Screening 12/06/2026 [facility]-DTaP,Tdap,and Td Vaccine s (2 - Td or Tdap) 04/08/2034 04/08/2024 [facility]-Obesity Intervention Completed 025, 09/23/2024, 06/23/2024 HPV Vaccines (No Doses Required) Completed [facility]-HIB Vaccines Aged Out No longer e ligible based on patient's age to complete this topic [facility]-Hepatitis A Vaccines Aged Out No longer eligible based on patient's age to complete this topic [facility]-IPV Vaccines Aged Out No longer e ligible based on patient's age to complete this topic [facility]-Rotavirus Vaccines Aged Out No lo nger eligible based on patient's age to complete this topic Insurance AETNA [facility] MEDICAID Care Teams [employer] Folder Operator Relationship Specialty Start Date End Date Yu Araiza APRN [address] [id number] PCP - General 12/22/20
--- OUTSIDE RECORDS SUMMARY | 2025-08-05 08:28 | XMS_ITS | Continuity of Care Document ---
[facility] Organization [facility] Address [address] [place] [address] Care Team Providers Care It Sales Executive Name Role Phone JOSESITO CAN Primary Care Provider Assessment No assessment recorded. Plan of Treatment Reminders Order Date Submit Date Provider Last Modified By Organization Details Last Modified Time Details Appointments Diabetic F/U 2025 09:00A Lisandra Can APRN Not available Not available Not available Lab CBC w/ auto diff 2024 025 [place] [facility], [address], [address], [place], [address], 07/06/2025 08:15:27 CMP, serum or plasma 2024 025 [facility], [address], [address], [place], [address], 07/06/2025 08:15:27 HbA1c (hemoglob in A1c), blood 2024 025 [facility], [address], [address] [address], [place], [address], 07/06/2025 08:15:28 drug screen, urine 2024 025 [facility], [address] [facility], [place], [address], 07/05/2025 09:45:05 Referral None recorded. Procedures None recorded. Surgeries None recorded. Imaging None recorded. Medication Orders gabapenti n 300 mg capsule 2024 025 [facility], [address], [address], 07/05/2025 09:17:30 Patient TargetsNo targets recorded. Patient InstructionsNo instructions recorded. Reason for Referral None Reported. Results Created Date Observation Date Name Description Value Unit Range Abnormal Flag Note LastModifiedBy Organization Detail LastModifiedTime 07/05/2007/06/2025 CBC WITH DIFFE RENTI AL/PL ATELE T WBC 10.1 x10e3 /uL 3.4-10 .8 normal Not Available [facility] ([facility]) [address] [place], [address], 07/06/2025 08:15:27 07/05/2007/06/2025 CBC WITH DIFFE RENTI AL/PL ATELE T RBC 6.55 x10e6 /uL 4.14-5 .80 above high normal Not Available [facility] ([facility]) [address] [place], [address], 07/06/2025 08:15:27 07/05/2007/06/2025 CBC WITH DIFFE RENTI AL/PL ATELE T hemoglobin 18.4 g/dL 13.0-1 7.7 above high normal Not Available [facility] ([facility]) [address] [place], [address], 07/06/2025 08:15:27 07/05/2007/06/2025 CBC WITH DIFFE RENTI AL/PL ATELE T hematocrit 56.0 % 37.5-5 1.0 above high normal Not Available [facility] ([facility]) [address] [place], [address], 07/06/2025 08:15:27 07/05/2007/06/2025 CBC WITH DIFFE RENTI AL/PL ATELE T MCV 86 fL 79-97 normal Not Available [facility] ([facility]) [address] [facility], [place], [address], 07/06/2025 08:15:27 07/05/2007/06/2025 CBC WITH DIFFE RENTI AL/PL ATELE T MCH 28.1 pg 26.6-3 3.0 normal Not Available [facility] ([facility]) [address] [place], [address], 07/06/2025 08:15:27 07/05/2007/06/2025 CBC WITH DIFFE RENTI AL/PL ATELE T MCHC 32.9 g/dL 31.5-3 5.7 normal Not Available [facility] ([facility]) [address] [place], [address], 07/06/2025 08:15:27 07/05/2007/06/2025 CBC WITH DIFFE RENTI AL/PL ATELE T RDW 13.1 % 11.6-1 5.4 Not Available [facility] ([facility]) [address] [place], [address], 07/06/2025 08:15:27 07/05/2007/06/2025 CBC WITH DIFFE RENTI AL/PL ATELE T platelets 253 x10e3 /uL 150-45 0 normal Not Available [facility] ([facility]) [address] [place], [address], 07/06/2025 08:15:27 07/05/2007/06/2025 CBC WITH DIFFE RENTI AL/PL ATELE T neutrophils 51 % not estab. normal Not Available [facility] ([facility]) [address] [place], [address], 07/06/2025 08:15:27 07/05/20 25 07/06/2025 CBC WITH DIFFE RENTI AL/PL ATELE T lymphs 38 % not estab. normal Not Available [facility] ([facility]) [address] [place], [address], 07/06/2025 08:15:27 07/05/2007/06/2025 CBC WITH DIFFE RENTI AL/PL ATELE T monocytes 10 % not estab. normal Not Available [facility] ([facility]) [address] [place], [address], 07/06/2025 08:15:27 07/05/2007/06/2025 CBC WITH DIFFE RENTI AL/PL ATELE T eos 0 % not estab. normal Not Available [facility] ([facility]) [address] [place], [address], 07/06/2025 08:15:27 07/05/2007/06/2025 CBC WITH DIFFE RENTI AL/PL ATELE T basos 1 % not estab. normal Not Available [facility] ([facility]) [address] [place], [address], 07/06/2025 08:15:27 07/05/2007/06/2025 CBC WITH DIFFE RENTI AL/PL ATELE T immature cells VENEER REPAIRER MACHINE Not Available [facility] ([facility]) [address] [place], [address], 07/06/2025 08:15:27 07/05/2007/06/2025 CBC WITH DIFFE RENTI AL/PL ATELE T neutrophils (absolute) 5.1 x10e3 /uL 1.4-7. 0 normal Not Available [facility] ([facility]) [address] [place], [address], 07/06/2025 08:15:27 07/05/2007/06/2025 CBC WITH DIFFE RENTI AL/PL ATELE T lymphs (absolute) 3.9 x10e3 /uL 0.7-3. 1 above high normal Not Available [facility] ([facility]) [address] [place], [address], 07/06/2025 08:15:27 07/05/20 25 07/06/2025 CBC WITH DIFFE RENTI AL/PL ATELE T monocytes(ab solute) 1.0 x10e3 /uL 0.1-0. 9 above high normal Not Available [facility] ([facility]) [address] [facility], [place], [address], 07/06/2025 08:15:27 07/05/20 25 07/06/2025 CBC WITH DIFFE RENTI AL/PL ATELE T eos (absolute) 0.0 x10e3 /uL 0.0-0. 4 normal Not Available [facility] ([facility]) [address] [place], [address], 07/06/2025 08:15:27 07/05/20 25 07/06/2025 CBC WITH DIFFE RENTI AL/PL ATELE T baso (absolute) 0.1 x10e3 /uL 0.0-0. 2 normal Not Available [facility] ([facility]) [address] [place], [address], 07/06/2025 08:15:27 07/05/20 25 07/06/2025 CBC WITH DIFFE RENTI AL/PL ATELE T immature granulocytes 0 % not estab. Not Available [facility] ([facility]) [address] [place], [address], 07/06/2025 08:15:27 07/05/20 25 07/06/2025 CBC WITH DIFFE RENTI AL/PL ATELE T immature grans (abs) 0.0 x10e3 /uL 0.0-0. 1 Not Available [facility] ([facility]) [address] [place], [address], 07/06/2025 08:15:27 07/05/20 25 07/06/2025 CBC WITH DIFFE RENTI AL/PL ATELE T NRBC VENEER REPAIRER MACHINE Not Available [facility] ([facility]) [address] [facility], [place], [address], 07/06/2025 08:15:27 07/05/20 25 07/06/2025 CBC WITH DIFFE MARYAM AL/AGUSTIN LING T hematology comments: VENEER REPAIRER MACHINE Not Available [facility] ([facility]) [address] [facility], [place], [address], 07/06/2025 08:15:27 07/05/20 25 07/06/2025 COMP. METAB OLIC PANEL (14) glucose 75 mg/dL 70-99 normal Not Available [facility] ([facility]) [address] [facility], [place], [address], 07/06/2025 08:15:27 07/05/20 25 07/06/2025 COMP. METAB OLIC PANEL (14) BUN 15 mg/dL 6-24 normal Not Available [facility] ([facility]) [address] [facility], [place], [address], 07/06/2025 08:15:27 07/05/20 25 07/06/2025 COMP. METAB OLIC PANEL (14) creatinine 1.65 mg/dL 0.76-1 .27 above high normal Not Available [facility] ([facility]) [address] [facility], [place], [address], 07/06/2025 08:15:27 07/05/20 25 07/06/2025 COMP. METAB OLIC PANEL (14) eGFR 49 mL/mi n/1.7 3 >59 below low normal Not Available [facility] ([facility]) [address] [facility], [place], [address], 07/06/2025 08:15:27 07/05/20 25 07/06/2025 COMP. METAB OLIC PANEL (14) BUN/creatini ne ratio 9 9-20 normal Not Available [facility] ([facility]) [address] [facility], [place], [address], 07/06/2025 08:15:27 07/05/20 25 07/06/2025 COMP. METAB OLIC PANEL (14) sodium 134 mmol/ L 134-14 4 normal Not Available [facility] ([facility]) [address] [facility] [place], [address], 07/06/2025 08:15:27 07/05/20 25 07/06/2025 COMP. METAB OLIC PANEL (14) potassium 4.1 mmol/ L 3.5-5. 2 normal Not Available [facility] ([facility]) [address] [facility] [place], [address], 07/06/2025 08:15:27 07/05/2007/06/2025 COMP. METAB OLIC PANEL (14) chloride 98 mmol/ L 96-106 normal Not Available [facility] ([facility]) [address] [facility] [place], [address], 07/06/2025 08:15:27 07/05/20 25 07/06/2025 COMP. METAB OLIC PANEL (14) carbon dioxide, total 20 mmol/ L 20-29 normal Not Available [facility] ([facility]) [address] [place], [address], 07/06/2025 08:15:27 07/05/20 25 07/06/2025 COMP. METAB OLIC PANEL (14) calcium 10.1 mg/dL 8.7-10 .2 normal Not Available [facility] ([facility]) [address] [place], [address], 07/06/2025 08:15:27 07/05/20 25 07/06/2025 COMP. METAB OLIC PANEL (14) protein, total 7.9 g/dL 6.0-8. 5 normal Not Available [facility] ([facility]) [address] [place], [address], 07/06/2025 08:15:27 07/05/20 25 07/06/2025 COMP. METAB OLIC PANEL (14) albumin 4.8 g/dL 3.8-4. 9 normal Not Available [facility] ([facility]) [address] [place], [address], 07/06/2025 08:15:27 07/05/20 25 07/06/2025 COMP. METAB OLIC PANEL (14) globulin, total 3.1 g/dL 1.5-4. 5 Not Available [facility] ([facility]) [address] [place], [address], 07/06/2025 08:15:27 07/05/20 25 07/06/2025 COMP. METAB OLIC PANEL (14) bilirubin, total 0.6 mg/dL 0.0-1. 2 normal Not Available [facility] ([facility]) [address] [place], [address], 07/06/2025 08:15:27 07/05/20 25 07/06/2025 COMP. METAB OLIC PANEL (14) alkaline phosphatase 87 IU/L 47-123 normal Not Available [facility] ([facility]) [address] [place], [address], 07/06/2025 08:15:27 07/05/20 25 07/06/2025 COMP. METAB OLIC PANEL (14) AST (SGOT) 42 IU/L 0-40 above high normal Not Available [facility] ([facility]) [address] [place], [address], 07/06/2025 08:15:27 07/05/20 25 07/06/2025 COMP. METAB OLIC PANEL (14) ALT (SGPT) 37 IU/L 0-44 normal Not Available [facility] ([facility]) [address] [place], [address], 07/06/2025 08:15:27 07/05/20 25 07/06/2025 HEMOG LOBIN A1C hemoglobin A1C 5.8 % 4.8-5. 6 above high normal Predi abete s: 5.7 - 6.4 Diabe maurisio: >6.4 Glyce danie contr ol for adult s with diabe maurisio: <7.0 Not Available [facility] ([facility]) [address] [facility], [place], [address], 07/06/2025 08:15:28 07/05/2007/05/2025 drug scree n, urine AMP negati ve Not Available [address], [address], 07/05/2025 09:15:49 07/05/2007/05/2025 drug scree n, urine BAR negati ve Not Available [address], [address], 07/05/2025 09:15:49 07/05/2007/05/2025 drug scree n, urine BUP negati ve Not Available [address], [address], 07/05/2025 09:15:49 07/05/2007/05/2025 drug scree n, urine BZO negati ve Not Available [address], [address], 07/05/2025 09:15:49 07/05/2007/05/2025 drug scree n, urine RADHA negati ve Not Available [address], [address], 07/05/2025 09:15:49 07/05/2007/05/2025 drug scree n, urine FTY negati ve Not Available [address], [address], 07/05/2025 09:15:49 07/05/2007/05/2025 drug scree n, urine MDMA negati ve Not Available [address], [address], 07/05/2025 09:15:49 07/05/2007/05/2025 drug scree n, urine MET negati ve Not Available [address], [address], 07/05/2025 09:15:49 07/05/2007/05/2025 drug scree n, urine MOP negati ve Not Available [address], [address], 07/05/2025 09:15:49 07/05/2007/05/2025 drug scree n, urine MTD negati ve Not Available [address], [address], 07/05/2025 09:15:49 07/05/2007/05/2025 drug scree n, urine OXY negati ve Not Available [address], [address], 07/05/2025 09:15:49 07/05/2007/05/2025 drug scree n, urine PCP negati ve Not Available [address], [address], 07/05/2025 09:15:49 07/05/2007/05/2025 drug scree n, urine TCA negati ve Not Available [address], [address], 07/05/2025 09:15:49 07/05/2007/05/2025 drug scree n, urine THC positi ve Not Available [address], [place], [address], 07/05/2025 09:15:49 Result Notes None recorded. Problems Name Problem SNOMED Code Status Onset Date Resolution Date Notes Provider Name and Address Organization Details Recorded Time Type 2 diabetes mellitus 62294907 Active Ashley Martinez null, [place] - [facility] 11:12:21 Asthma 903008307 Active Ashley Martinez null, [place] - [facility] 11:12:35 Hypertensi ve disorder 52859072 Active Ashley Martinez null, [place] - [facility] 11:12:45 Seasonal allergic rhinitis 395457171 Active Ashley Martinez null, [place] - [facility] 11:13:17 Obesity 428347495 Active Ashley Martinez null, [place] - [facility] 2 11:13:32 Irritable bowel syndrome 09127883 Active 2022 Josesito Can, DOLLY OPERATOR [address], [place], [address] , [place] - [facility] 3 15:45:37 Peripheral neuropathy due to type 2 diabetes mellitus 3696089346690 Active 2022 Josesito Can, DOLLY OPERATOR [address], [place], [address] , [place] - [facility] 3 15:31:42 Sleep apnea 72755434 Active 2022 Josesito Can, DOLLY OPERATOR [address], [place], [address] , [place] - [facility] 3 15:31:58 Neuropathy 613155799 Active 2023 Josesito Can, DOLLY OPERATOR [address], [place], [address] , [place] - [facility] 4 09:27:16 Chronic neck pain 4334309332550 Active 2024 Aimeekendal Roper null, [place] - [facility] 5 10:33:42 Chronic kidney disease stage 3 899323153 Active 2024 Josesito Can, DOLLY OPERATOR [address], [place], [address] , [place] - [facility] 5 08:43:16 Hyperlipid emia 17188151 Active 2024 Aimee Roper null, [place] - [facility] 5 08:45:06 Chronic gout without tophus 546937610 Active 2024 Aimee nichole, [place] - [facility] 5 08:46:30 Bilateral chronic pain of upper limbs 8498848982168 9106 Active 2024 Josesito Can, DOLLY OPERATOR [address], [place], [address] , [place] - [facility] 5 15:46:00 Problem Notes None recorded. Procedures Surgical History Date Name Laterality Status Provider Name and Address Organization Details Recorded Time 08/20/19 22 Orthopedic Surgery completed Aimee Roper [place] - [facility] 01/06/2024 08:17:13 03/07/20 21 Arthroscopic Surgery completed Ashley Martinez [place] - [facility] 07/26/2022 11:05:22 Hernia Repair completed Aimee Roper [place] - [facility] 01/06/2024 08:17:07 Imaging Results None recorded. Procedure Notes None recorded. Medical Equipment None Reported. Allergies Allergen ID Allergen Name Allergen Category Reaction Reaction Severity Criticality Documentation Date Start Date Code Code System Note Provider Name and Address Organization Details Recorded Time 697225 Lipitor medicatio n rash moderate high 07/26/2022 49138 5 RxNorm Ashley Michelle null, [place] - [facility] 2 11:06:03 886094 atorvasta tin medicatio n rash Not available Not available 06/27/20252020 91527 RxNorm Aimee Roper null, [place] - [facility] 5 13:09:43 Medications Name Sig Start Date Stop [...] completed Not Available Not Available Not Available [employer] Adalid 3 Plus Sensor device USE DIRECTED CHANGE EVERY 15 DAYS active Not Available Not Available No t Available Vitals Date Recorded Body height Body mass index (BMI) Body weight Body temperature Heart rate Oxygen saturation Respiratory rate Pain severity - 0-10 verbal numeric rating [Score] - Reported Systolic And Diastolic Provider Name and Address Organization Details Last Updated DateTime 5 170.18 cm 42 kg/m2 967720. 76 g 98.1 [degF] 67 /min 97 % 18 /min 0 122/78 mm[Hg] Ashley Martinez [place] - [facility] 09:09:37 Social History Question Answer Notes LastModified by Organizat ion Details LastModified Time Tobacco Smoking Status Never Smoker Ashley Martinez null, [place] - [facility] 07/26/2022 11:05:16 Do You [...] Or The Highest Degree You Have Received? DF45071-4 Information not available 07/26/2022 Have There Been Any Changes To Your Family Or Social Situation? No Information no t available 04/08/2023 What Is The Fluoride Status Of Your Home? 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 No Information not available 04/08/2023 What Was [...] anxious, or unable to sleep at night)? [id number] Information not available 07/26/2022 Do you have [...] le 07/26/2022 11:04:58 Medical History Condition Response Gout Y Diabetes Y Asthma Y Hypercholesterolemia Y Irritable Bowel Syndrome Y Hypertension Y Immunizations Vaccine Type Date Status Note Provider Nam e and Address Organization Details Recorded Time Tdap 04/08/2024 completed Josesito Can APRN [facility] [address], [address], [facility] - [facility] 04/08/2024 11:44:24 Past Encounters Encounter ID Performer Location Encounter Start Date Encounter Closed Date Diagnosis/Indication Diagnosis SNOMED-CT Code Diagnosis ICD10 Code Diagnosis IMO Codes Diagnosis Note [id number] Josesito Can APRN [address] [address] 06/27/2025 13:00:07 06/27/2025 13:39:50 Acute contact dermatitis 371837282 L25.9 364 apply with benadrylif worsen or no improvemen t return [id number] Josesito Can APRN [address] [address] 07/05/2025 08:55:38 07/05/2025 10:38:38 Peripheral neuropathy due to type 2 diabetes mellitus 7330858003 107 E11.42 Pt compliant with plan of caremedica tion compliance discussedL ast uds:Control substance agreement on filekasper #[id number] - manual Hypertensive disorder 38 257742 I10 Hyperlipidemia 14564546 E78.5 53446170 Type 2 hope betes mellitus 90539769 E11.9 *Diabetic Measures:M etformin:y esACE/ARB: yesASA:yes Statin:yes GLP:yesdis cussed diet and exercise dfnrm7w well controlled leave jardiance due to heart failure Long-term current use of drug therapy 348477382 Z79.899 50295457 Health Concerns Section Related Observation LastModified by Organization Detai ls LastModified Time None Recorded Concern Status LastModified by Organization Details LastModified Time None Recorded Payers Encounter Date Sequence Insurance Name Policy Number Policy Elam Covered Member ID Elam Member ID Guarantor Name 07/05/2025 1 [employer] [facility] (MEDICAID HMO) [place] [id number] [place] Notes Date Note Type Note Provider Name and Address Organization Details Recorded Time 07/05/2025 text/html 55 yr old male presents for labs. He also states he is getting faulty readings from the adalid sensor. He has compared with glucometer and readings are 20+ numbers off.needs gabapentin refilled-pt states helps with his neuropathy- pt states he used cbd gummy for his pain and neuropathy. Josesito Can, DOLLY OPERATOR [address], [place], [address], [place] - [facility] 07/05/2025 11:43:58
--- OUTSIDE RECORDS SUMMARY | 2025-08-05 08:28 | XMS_ITS | Clinical Summary ---
[facility] Address [address] [place] [address] Care Team Providers Care Signal Wirer Name Role Phone Yu Araiza APRN Primary Care Provider + [phone] Allergies No known active allergies Medications allopurinol (ZYLOPRIM) 300 MG tablet Take by mouth. A ctive metoprolol tartrate (LOPRESSOR) 25 MG tablet Take by mouth. Ac tive fluticasone (FLONASE) 50 MCG/ACT nasal spray into the nostril(s) as directed by provider Daily. Active Eluxadoline (Viberzi) 100 MG tablet Take by mouth. Activ e Loratadine (CLARITIN PO) Take by mouth. A ctive esomeprazole (nexIUM) 20 MG capsule Take 20 mg by mouth Every Morning Before Breakfast. Active fenofibrate (TRICOR) 145 MG tablet Take 145 mg by mouth Daily. with food 03/19/20 21 Active acetaminophen (TYLENOL) 500 MG tablet Take 500 mg by mouth As Needed for Mild Pain . Ac tive albuterol (PROVENTIL) (2.5 MG/3ML) 0.083% nebulizer solution As Needed. 06/28/20 21 Active azelastine (ASTEPRO) 0.15 % solution nasal spray 07/17/20 21 Active Lantus SoloStar 100 UNIT/ML injection pen 20 Units. 07/09/20 21 Active metFORMIN (GLUCOPHAGE) 1000 MG tablet TAKE 1 TABLET BY MOUTH TWICE DAILY WITH A MEAL FOR 30 DAYS 07/27/20 21 Active famotidine (PEPCID) 20 MG tablet Take 20 mg by mouth At Night As Needed. 08/09/20 21 Active Ozempic, 0.25 or 0.5 MG/DOSE, 2 MG/1.5ML solution pen-injector INJECT 0.5MG SUBCUTANEOUSLY ONCE A WEEK 09/08/19 22 Active losartan (COZAAR) 50 MG tablet Take 50 mg by mouth Daily. 09/05/19 22 Active Jardiance 25 MG tablet tablet Take 25 mg by mouth Daily. 10/05/19 22 Active Advair Diskus 250-50 MCG/DOSE DISKUS Inhale 1 puff 2 (Two) Times a Day. 09/24/19 22 Active metoprolol succinate XL (TOPROL-XL) 25 MG 24 hr tablet TAKE 1 TABLET BY MOUTH AT BEDTIME FOR HIGH BLOOD PRESSURE 11/13/19 22 Active montelukast (SINGULAIR) 10 MG tablet 10/17/19 22 Active hydroCHLOROth iazide (HYDRODIURIL) 12.5 MG tablet Take 12.5 mg by mouth Daily. Active FREESTYLE LITE test strip 1 each by Other route 3 (Three) Times a Day. 12/23/19 22 Active B-D UF III MINI PEN NEEDLES 31G X 5 MM misc USE 1 PEN NEEDLE SUBCUTANEOUSLYBEFORE MEAL(S) AND AT BEDTIME 11/17/19 22 Active meloxicam (MOBIC) 15 MG tablet 1 PO Daily with food. 90 tablet 2 01/24/20 22 Active atorvastatin (LIPITOR) 20 MG tablet Take 20 mg by mouth Daily. 02/27/20 22 Active Lancets (freestyle) lancets USE 1 TO CHECK GLUCOSE THREE TIMES DAILY 04/09/20 22 Active Active Problems No known active problems Family History Medical History Relation Name Comments Cancer Father Diabetes Mother Heart attack Mother Relation Name Status Comments Father Mother Social History Tobacco Use Types Packs/Day Years Used Date Smoking Tobacco: Never Smokeless Tobacco: Former Quit: 2016 Alcohol Use Standard Drinks/Week Comments Never 0 (1 standard drink = 0.6 oz pur e alcohol) AUDIT-C Answer Date Recorded Q1: How often do you have a drink containing alc ohol? Never 02/26/2021 Average Number of Drinks Not on file 021 Frequency of Binge Drinking Not on file 02/08 Abuse Screen Answer Date Recorded Unsafe at Home or Work/School Not on file Feels Threatened by Someone? Not on file 04/2023 Does Anyone Keep You from Co ntacting Others or Doint Things Outside the Home? Not on file 05/19/2023 Physical Sign of Abuse Present Not on file 1 Housing Stability Answer Date Recorded Current Living Arrangements Not on file 04/2023 Potentially Unsafe Housing Conditions Not on colleen e 05/19/2023 Family and Community Support Answer Yoni e Recorded Help with Day-to-Day Activities Not on file 05/19/2023 Lonely or Isolated Not on file 05/19/2023 Employment Answer Date Recorded Do you want help finding or keeping work or a carlos b? Not on file 05/19/2023 Disabilities Answer Date Recorded Concentrating, Remembering, or Making Decisions Difficulty Not on file 05/19/2023 Doing Errands Independently Difficulty Not on fi le 05/19/2023 Education Answer Date Recorded Help with school or training? Not on file Preferred Language Not on file 05/19/2023 Sex and Gender Information Value Date Recorded Sex Assigned at Not on file Legal Sex Male 8:34 PM EDT Gender Identity Not on file Sexual Orientation Not on file Last Filed Vital Signs Vital Sign Reading Time Taken Comments Blood Pressure 132/78 05/01/2022 11:18 AM EDT Pulse 102 07/25/2021 3:28 PM EST Temperature 36.3 C (97.3 F) 03/12/2021 11:08 AM EDT Respiratory Rate - - Oxygen Saturation - - Inhaled Oxygen Concentration - - Weight 124 kg (274 lb 3.2 oz) 05/01/2022 11:18 A M EDT Height 169.5 cm (5' 6.73 ) 05/01/2022 11:18 AM E DT Body Mass Index 43.29 05/01/2022 11:18 AM EDT Plan of Treatment Health Maintenance Due Date Last Done Comments TDAP/TD VACCINES (1 - Tdap) 1990 COLOGUARD 2016 COLON CANCER SCREENING 5 YEAR SIGMOIDOSCOPY 2016 COLONOSCOPY [address] S[address]ENING [address] CT COLONOGRAPHY 2016 FECAL OCCULT BLOOD TEST 2016 FIT Testing (1 year) 2016 ANNUAL PHYSICAL 02/26/2021 HEPATITIS C SCREENING 02/26/2021 Pneumococcal Vaccine 50+ (1 of 1 - PCV) 2021 ZOSTER VACCINE (1 of 2) 2021 INFLUENZA VACCINE 03/11/2025 Insurance [facility] Care Teams Signal Wirer Relationship Specialty Start Date End Date Yu Araiza APRN PCP - General Internal Medicine 03/05/21
--- OUTSIDE RECORDS SUMMARY | 2025-08-05 08:29 | XMS_ITS | Data Portability ---
Author Organization [facility] hospital Address [address] [place] [address] Care Team Providers Care Employment Counselor Name Role Phone JOSESITO CAN Primary Care Provider Assessment No assessment recorded. Plan of Treatment Reminders Order Date Submit Date Provider Last Modified By Organization Details Last Modified Time Details Appointments Diabetic F/U 2025 09:00A Lisandra Can APRN Not available Not available Not available Lab CBC w/ auto diff 2024 025 [place] [facility], [address], [address], [place], [address], 07/06/2025 08:15:27 CMP, serum or plasma 2024 025 [place] [facility], [address], [address] [address], [place], [address], 07/06/2025 08:15:27 HbA1c (hemoglob in A1c), blood 2024 025 [place] [facility], [address], [address], [place], [address], 07/06/2025 08:15:28 drug screen, urine 2024 025 [facility], [address] [facility], [place], [address], 07/05/2025 09:45:05 HbA1c (hemoglob in A1c), blood 2024 025 adri [facility], [address] [facility], [place], [address], 04/04/2025 11:00:05 drug screen, urine 2024 025 [facility], [address] [place] [address], [address], 01/31/2025 15:54:27 drug screen, 14 drugs (detectim ed), urine 2024 025 [place] [facility], [address], [address], [place], [address], 02/04/2025 23:06:50 HbA1c (hemoglob in A1c), blood 2024 025 [place] [facility], [address], [address], [place], [address], 11/19/2024 11:11:06 CMP, serum or plasma 2024 025 [place] [facility], [address], [address], [place], [address], 11/19/2024 11:11:05 insulin, serum 2024 025 [place] [facility], [address], [address], [place], [address], 11/19/2024 11:11:06 Referral None recorded. Procedures None recorded. Surgeries None recorded. Imaging XR, shoulder, 2 or more view 2024 025 [facility] ([facility]), [address] [place], [place] [address]y [address], [place], [address], 04/11/2025 04:06:34 XR, foot, 3 or more view 2024 025 [facility] ([facility]), [address] [place], [place] [address] [address] [place], [address], 04/18/2025 04:07:21 Medication Orders gabapenti n 300 mg capsule 2024 025 [facility], [address], [address], 07/05/2025 09:17:30 triamcino lone acetonide 0.1 % topical cream 2024 025 [facility], [address], [address], 06/27/2025 13:40:19 gabapenti n 300 mg capsule 2024 025 [facility], [address], [address], 04/12/2025 05:01:34 gabapenti n 300 mg capsule 2024 025 [facility], [address], [address], 04/12/2025 05:01:34 allopurin ol 300 mg tablet 2024 025 [facility], [address], [address], 11/18/2024 09:30:19 Jardiance 25 mg tablet 2024 025 [facility], [address], [address], 01/31/2025 09:08:44 Mounjaro 5 mg/0.5 mL subcutane ous pen injector 2024 025 [facility], [address], [address], 12/10/2024 14:25:18 Diflucan 100 mg tablet 2024 025 [facility], [address], [address], 01/31/2025 09:08:57 gabapenti n 300 mg capsule 2024 025 [facility], [address], [address], 04/12/2025 05:01:34 famotidin e 20 mg tablet 2024 025 [facility], [address], [address], 11/18/2024 09:30:18 fenofibra te nanocryst allized 145 mg tablet 2024 025 [facility], [address], [address], 11/18/2024 09:30:17 Patient TargetsNo targets recorded. Patient InstructionsNo instructions recorded. Reason for Referral None Reported. Results Created Date Observation Date Name Description Value Unit Range Abnormal Flag Note LastModifiedBy Organization Detail LastModifiedTime 10/26/1910/26/2024 TSH+F REE T4 TSH 3.100 uIU/m L 0.450- 4.500 normal Not Available [facility] ([facility]) [address] [place], [address], 10/26/2024 12:07:56 10/26/1910/26/2024 TSH+F REE T4 T4,free(dire ct) 1.13 NG/dL 0.82-1 .77 normal Not Available [facility] ([facility]) [address] [place], [address], 10/26/2024 12:07:56 10/26/1910/26/2024 CBC WITH DIFFE RENTI AL/PL ATELE T WBC 10.3 x10e3 /uL 3.4-10 .8 normal Not Available [facility] ([facility]) [address] [place], [address], 10/26/2024 12:07:56 10/26/19 25 10/26/2024 CBC WITH DIFFE RENTI AL/PL ATELE T RBC 6.22 x10e6 /uL 4.14-5 .80 above high normal Not Available [facility] ([facility]) [address] [facility], [place], [address], 10/26/2024 12:07:56 10/26/19 25 10/26/2024 CBC WITH DIFFE RENTI AL/PL ATELE T hemoglobin 17.6 g/dL 13.0-1 7.7 normal Not Available [facility] ([facility]) [address] [facility], [place], [address], 10/26/2024 12:07:56 10/26/19 25 10/26/2024 CBC WITH DIFFE RENTI AL/PL ATELE T hematocrit 52.6 % 37.5-5 1.0 above high normal Not Available [facility] ([facility]) [address] [facility], [place], [address], 10/26/2024 12:07:56 10/26/19 25 10/26/2024 CBC WITH DIFFE RENTI AL/PL ATELE T MCV 85 fL 79-97 normal Not Available [facility] ([facility]) [address] [place], [address], 10/26/2024 12:07:56 10/26/19 25 10/26/2024 CBC WITH DIFFE RENTI AL/PL ATELE T MCH 28.3 pg 26.6-3 3.0 normal Not Available [facility] ([facility]) [address] [place], [address], 10/26/2024 12:07:56 10/26/19 25 10/26/2024 CBC WITH DIFFE RENTI AL/PL ATELE T MCHC 33.5 g/dL 31.5-3 5.7 normal Not Available [facility] ([facility]) [address] [facility], [place], [address], 10/26/2024 12:07:56 10/26/19 25 10/26/2024 CBC WITH DIFFE RENTI AL/PL ATELE T RDW 13.4 % 11.6-1 5.4 Not Available [facility] ([facility]) [address] [facility], [place], [address], 10/26/2024 12:07:56 10/26/19 25 10/26/2024 CBC WITH DIFFE RENTI AL/PL ATELE T platelets 250 x10e3 /uL 150-45 0 normal Not Available [facility] ([facility]) [address] [facility], [place], [address], 10/26/2024 12:07:56 10/26/19 25 10/26/2024 CBC WITH DIFFE RENTI AL/PL ATELE T neutrophils 55 % not estab. normal Not Available [facility] ([facility]) [address] [facility], [place], [address], 10/26/2024 12:07:56 10/26/19 25 10/26/2024 CBC WITH DIFFE RENTI AL/PL ATELE T lymphs 34 % not estab. normal Not Available [facility] ([facility]) [address] [facility], [place], [address], 10/26/2024 12:07:56 10/26/19 25 10/26/2024 CBC WITH DIFFE RENTI AL/PL ATELE T monocytes 9 % not estab. normal Not Available [facility] ([facility]) [address] [facility], [place], [address], 10/26/2024 12:07:56 10/26/19 25 10/26/2024 CBC WITH DIFFE RENTI AL/PL ATELE T eos 0 % not estab. normal Not Available [facility] ([facility]) [address] [facility], [place], [address], 10/26/2024 12:07:56 10/26/19 25 10/26/2024 CBC WITH DIFFE RENTI AL/PL ATELE T basos 1 % not estab. normal Not Available [facility] ([facility]) [address] [place], [address], 10/26/2024 12:07:56 10/26/19 25 10/26/2024 CBC WITH DIFFE RENTI AL/PL ATELE T immature cells STEREO COMPILER Not Available [facility] ([facility]) [address] [place], [address], 10/26/2024 12:07:56 10/26/19 25 10/26/2024 CBC WITH DIFFE RENTI AL/PL ATELE T neutrophils (absolute) 5.6 x10e3 /uL 1.4-7. 0 normal Not Available [facility] ([facility]) [address] [place], [address], 10/26/2024 12:07:56 10/26/19 25 10/26/2024 CBC WITH DIFFE RENTI AL/PL ATELE T lymphs (absolute) 3.5 x10e3 /uL 0.7-3. 1 above high normal Not Available [facility] ([facility]) [address] [place], [address], 10/26/2024 12:07:56 10/26/19 25 10/26/2024 CBC WITH DIFFE RENTI AL/PL ATELE T monocytes(ab solute) 0.9 x10e3 /uL 0.1-0. 9 normal Not Available [facility] ([facility]) [address] [place], [address], 10/26/2024 12:07:56 10/26/19 25 10/26/2024 CBC WITH DIFFE RENTI AL/PL ATELE T eos (absolute) 0.0 x10e3 /uL 0.0-0. 4 normal Not Available [facility] ([facility]) [address] [place], [address], 10/26/2024 12:07:56 10/26/19 25 10/26/2024 CBC WITH DIFFE RENTI AL/PL ATELE T baso (absolute) 0.1 x10e3 /uL 0.0-0. 2 normal Not Available [facility] ([facility]) [address] [facility], [place], [address], 10/26/2024 12:07:56 10/26/19 25 10/26/2024 CBC WITH DIFFE RENTI AL/PL ATELE T immature granulocytes 1 % not estab. Not Available [facility] ([facility]) [address] [facility], [place], [address], 10/26/2024 12:07:56 10/26/19 25 10/26/2024 CBC WITH DIFFE RENTI AL/PL ATELE T immature grans (abs) 0.1 x10e3 /uL 0.0-0. 1 Not Available [facility] ([facility]) [address] [facility], [place], [address], 10/26/2024 12:07:56 10/26/19 25 10/26/2024 CBC WITH DIFFE RENTI AL/PL ATELE T NRBC STEREO COMPILER Not Available [facility] ([facility]) [address] [facility], [place], [address], 10/26/2024 12:07:56 10/26/19 25 10/26/2024 CBC WITH DIFFE RENTI AL/PL ATELE T hematology comments: STEREO COMPILER Not Available [facility] ([facility]) [address] [facility], [place], [address], 10/26/2024 12:07:56 10/26/19 25 10/26/2024 COMP. METAB OLIC PANEL (14) glucose 139 mg/dL 70-99 above high normal Not Available [facility] ([facility]) [address] [facility], [place], [address], 10/26/2024 12:07:56 10/26/19 25 10/26/2024 COMP. METAB OLIC PANEL (14) BUN 20 mg/dL 6-24 normal Not Available [facility] ([facility]) [address] [place], [address], 10/26/2024 12:07:56 10/26/19 25 10/26/2024 COMP. METAB OLIC PANEL (14) creatinine 1.48 mg/dL 0.76-1 .27 above high normal Not Available [facility] ([facility]) [address] [facility], [place], [address], 10/26/2024 12:07:56 10/26/19 25 10/26/2024 COMP. METAB OLIC PANEL (14) eGFR 56 mL/mi n/1.7 3 >59 below low normal Not Available [facility] ([facility]) [address] [facility], [place], [address], 10/26/2024 12:07:56 10/26/19 25 10/26/2024 COMP. METAB OLIC PANEL (14) BUN/creatini ne ratio 14 9-20 normal Not Available [facility] ([facility]) [address] [place], [address], 10/26/2024 12:07:56 10/26/19 25 10/26/2024 COMP. METAB OLIC PANEL (14) sodium 139 mmol/ L 134-14 4 normal Not Available [facility] ([facility]) [address] [place], [address], 10/26/2024 12:07:56 10/26/19 25 10/26/2024 COMP. METAB OLIC PANEL (14) potassium 4.5 mmol/ L 3.5-5. 2 normal Not Available [facility] ([facility]) [address] [place], [address], 10/26/2024 12:07:56 10/26/19 25 10/26/2024 COMP. METAB OLIC PANEL (14) chloride 100 mmol/ L 96-106 normal Not Available [facility] ([facility]) [address] [place], [address], 10/26/2024 12:07:56 10/26/19 25 10/26/2024 COMP. METAB OLIC PANEL (14) carbon dioxide, total 20 mmol/ L 20-29 normal Not Available [facility] ([facility]) [address] [place], [address], 10/26/2024 12:07:56 10/26/19 25 10/26/2024 COMP. METAB OLIC PANEL (14) calcium 10.0 mg/dL 8.7-10 .2 normal Not Available [facility] ([facility]) [address] [place], [address], 10/26/2024 12:07:56 10/26/19 25 10/26/2024 COMP. METAB OLIC PANEL (14) protein, total 7.3 g/dL 6.0-8. 5 normal Not Available [facility] ([facility]) [address] [place], [address], 10/26/2024 12:07:56 10/26/19 25 10/26/2024 COMP. METAB OLIC PANEL (14) albumin 4.4 g/dL 3.8-4. 9 normal Not Available [facility] ([facility]) [address] [place], [address], 10/26/2024 12:07:56 10/26/19 25 10/26/2024 COMP. METAB OLIC PANEL (14) globulin, total 2.9 g/dL 1.5-4. 5 Not Available [facility] ([facility]) [address] [place], [address], 10/26/2024 12:07:56 10/26/19 25 10/26/2024 COMP. METAB OLIC PANEL (14) bilirubin, total 0.3 mg/dL 0.0-1. 2 normal Not Available [facility] ([facility]) [address] [place], [address], 10/26/2024 12:07:56 10/26/19 25 10/26/2024 COMP. METAB OLIC PANEL (14) alkaline phosphatase 85 IU/L 44-121 normal Not Available [facility] ([facility]) [address] [place], [address], 10/26/2024 12:07:56 10/26/19 25 10/26/2024 COMP. METAB OLIC PANEL (14) AST (SGOT) 25 IU/L 0-40 normal Not Available [facility] ([facility]) [address] [place], [address], 10/26/2024 12:07:56 10/26/19 25 10/26/2024 COMP. METAB OLIC PANEL (14) ALT (SGPT) 33 IU/L 0-44 normal Not Available [facility] ([facility]) [address] [place], [address], 10/26/2024 12:07:56 10/26/19 25 10/26/2024 HEPAT IC FUNCT ION PANEL (7) bilirubin, direct 0.13 mg/dL 0.00-0 .40 normal Not Available [facility] ([facility]) [address] [place], [address], 10/26/2024 12:07:57 10/26/19 25 10/26/2024 LIPID PANEL cholesterol, total 197 mg/dL 100-19 9 normal Not Available [facility] ([facility]) [address] [place], [address], 10/26/2024 12:07:57 10/26/19 25 10/26/2024 LIPID PANEL triglyceride s 323 mg/dL 0-149 above high normal Not Available [facility] ([facility]) [address] [facility], [place], [address], 10/26/2024 12:07:57 10/26/19 25 10/26/2024 LIPID PANEL HDL cholesterol 42 mg/dL >39 normal Not Available [facility] ([facility]) [address] [facility], [place], [address], 10/26/2024 12:07:57 10/26/19 25 10/26/2024 LIPID PANEL VLDL cholesterol adryan 55 mg/dL 5-40 above high normal Not Available [facility] ([facility]) [address] [place], [address], 10/26/2024 12:07:57 10/26/19 25 10/26/2024 LIPID PANEL LDL chol calc ([facility]) 100 mg/dL 0-99 above high normal Not Available [facility] ([facility]) [address] [facility], [place], [address], 10/26/2024 12:07:57 10/26/19 25 10/26/2024 LIPID PANEL LDL calc comment: STEREO COMPILER Not Available [facility] ([facility]) [address] [facility], [place], [address], 10/26/2024 12:07:57 10/26/19 25 10/26/2024 B-TYP E NATRI URETI C PEPTI DE B-type natriuretic peptide <2.5 pg/mL 0.0-10 0.0 Sieme ns AD[facility] XP metho dolog y Not Available [facility] ([facility]) [address] [place], [address], 10/26/2024 12:07:57 10/26/19 25 10/26/2024 MAGNE SIUM magnesium 2.1 mg/dL 1.6-2. 3 normal Not Available [facility] ([facility]) [address] [place], [address], 10/26/2024 12:07:58 10/26/19 25 10/26/2024 INSUL IN insulin 181.0 uIU/m L 2.6-24 .9 above high normal Not Available [facility] ([facility]) [address] [place], [address], 10/26/2024 12:07:58 11/19/19 25 11/19/2024 COMP. METAB OLIC PANEL (14) glucose 107 mg/dL 70-99 above high normal Not Available [facility] ([facility]) [address] [place], [address], 11/19/2024 11:11:05 11/19/19 25 11/19/2024 COMP. METAB OLIC PANEL (14) BUN 15 mg/dL 6-24 normal Not Available [facility] ([facility]) [address] [place], [address], 11/19/2024 11:11:05 11/19/19 25 11/19/2024 COMP. METAB OLIC PANEL (14) creatinine 1.52 mg/dL 0.76-1 .27 above high normal Not Available [facility] ([facility]) [address] [place], [address], 11/19/2024 11:11:05 11/19/19 25 11/19/2024 COMP. METAB OLIC PANEL (14) eGFR 54 mL/mi n/1.7 3 >59 below low normal Not Available [facility] ([facility]) [address] [place], [address], 11/19/2024 11:11:05 11/19/19 25 11/19/2024 COMP. METAB OLIC PANEL (14) BUN/creatini ne ratio 10 9-20 normal Not Available [facility] ([facility]) [address] [place], [address], 11/19/2024 11:11:05 11/19/19 25 11/19/2024 COMP. METAB OLIC PANEL (14) sodium 141 mmol/ L 134-14 4 normal Not Available [facility] ([facility]) [address] [place], [address], 11/19/2024 11:11:05 11/19/19 25 11/19/2024 COMP. METAB OLIC PANEL (14) potassium 4.3 mmol/ L 3.5-5. 2 normal Not Available [facility] ([facility]) [address] [place], [address], 11/19/2024 11:11:05 11/19/19 25 11/19/2024 COMP. METAB OLIC PANEL (14) chloride 102 mmol/ L 96-106 normal Not Available [facility] ([facility]) [address] [place], [address], 11/19/2024 11:11:05 11/19/19 25 11/19/2024 COMP. METAB OLIC PANEL (14) carbon dioxide, total 23 mmol/ L 20-29 normal Not Available [facility] ([facility]) [address] [place], [address], 11/19/2024 11:11:05 11/19/19 25 11/19/2024 COMP. METAB OLIC PANEL (14) calcium 9.8 mg/dL 8.7-10 .2 normal Not Available [facility] ([facility]) [address] [place], [address], 11/19/2024 11:11:05 11/19/19 25 11/19/2024 COMP. METAB OLIC PANEL (14) protein, total 7.2 g/dL 6.0-8. 5 normal Not Available [facility] ([facility]) [address] [place], [address], 11/19/2024 11:11:05 11/19/19 25 11/19/2024 COMP. METAB OLIC PANEL (14) albumin 4.5 g/dL 3.8-4. 9 normal Not Available [facility] ([facility]) [address] [place], [address], 11/19/2024 11:11:05 11/19/19 25 11/19/2024 COMP. METAB OLIC PANEL (14) globulin, total 2.7 g/dL 1.5-4. 5 Not Available [facility] ([facility]) [address] [place], [address], 11/19/2024 11:11:05 11/19/19 25 11/19/2024 COMP. METAB OLIC PANEL (14) bilirubin, total 0.4 mg/dL 0.0-1. 2 normal Not Available [facility] ([facility]) [address] [place], [address], 11/19/2024 11:11:05 11/19/19 25 11/19/2024 COMP. METAB OLIC PANEL (14) alkaline phosphatase 76 IU/L 44-121 normal Not Available [facility] ([facility]) [address] [place], [address], 11/19/2024 11:11:05 11/19/19 25 11/19/2024 COMP. METAB OLIC PANEL (14) AST (SGOT) 52 IU/L 0-40 above high normal Not Available [facility] ([facility]) [address] [place], [address], 11/19/2024 11:11:05 11/19/19 25 11/19/2024 COMP. METAB OLIC PANEL (14) ALT (SGPT) 48 IU/L 0-44 above high normal Not Available [facility] ([facility]) [address] [place], [address], 11/19/2024 11:11:05 11/19/19 25 11/19/2024 HEMOG LOBIN A1C hemoglobin A1C 6.9 % 4.8-5. 6 above high normal Predi abete s: 5.7 - 6.4 Diabe maurisio: >6.4 Glyce danie contr ol for adult s with diabe maurisio: <7.0 Not Available [facility] ([facility]) [address] [facility], [place], [address], 11/19/2024 11:11:06 11/19/19 25 11/19/2024 INSUL IN insulin 90.1 uIU/m L 2.6-24 .9 above high normal Not Available [facility] ([facility]) [address] [facility], [place], [address], 11/19/2024 11:11:06 02/01/20 25 02/04/2025 COMPL IANCE DRUG KAYLEY SIS, UR summary report (summary) FINAL ===== ===== ===== ===== ===== ===== ===== ===== ===== ===== ===== ===== ===== === TOXAS SURE COMP DRUG KAYLEY SIS,U R ===== ===== ===== ===== ===== ===== ===== ===== ===== ===== ===== ===== ===== === Test Resul t Flag Units Drug Prese nt Alcoh ol, Ethyl 0.168 g/dL Sourc es of ethyl alcoh ol inclu de alcoh olic bever ages or as a ferme ntati on produ ct of gluco se; gluco se is prese nt in this speci men. Inter pret resul t with cauti on, as the prese nce of ethyl alcoh ol is likel y due, at least in part, to ferme ntati on of gluco se. Carbo xy-TH C 1670 ng/mg creat Carbo xy-TH C is a metab olite of tetra hydro canna binol (THC) . Sourc e of THC is most commo nly herba l marij uana or marij uana- based produ cts, but THC is also prese nt in a sched uled presc ripti on medic ation . Trace amoun ts of THC can be prese nt in hemp and canna bidio l (CBD) produ cts. This test is not inten ded to disti nguis h betwe en delta -9-te trahy droca nnabi nol, the predo minan t form of THC in most herba l or marij uana- based produ cts, and delta -8-te trahy droca nnabi nol. Metop rolol PRESE NT ===== ===== ===== ===== ===== ===== ===== ===== ===== ===== ===== ===== ===== === Test Resul t Flag Units Ref Range Creat inine 56 mg/dL >=20 ===== ===== ===== ===== ===== ===== ===== ===== ===== ===== ===== ===== ===== === Decla red Medic ation s: Medic ation list was not provi ded. ===== ===== ===== ===== ===== ===== ===== ===== ===== ===== ===== ===== ===== === For clini adryan consu ltati on, pleas e call . ===== ===== ===== ===== ===== ===== ===== ===== ===== ===== ===== ===== ===== === Not Available [facility] ([facility]) [address] [facility], [place], [address], 02/04/2025 23:06:50 02/01/20 25 02/04/2025 COMPL IANCE DRUG KAYLEY SIS, UR pdf . Not Available [facility] ([facility]) [address] [facility], [place], [address], 02/04/2025 23:06:50 02/01/20 25 01/31/2025 drug scree n, urine AMP negati ve Not Available [address], [address], 01/31/2025 09:13:12 02/01/20 25 01/31/2025 drug scree n, urine BAR negati ve Not Available [address], [address], 01/31/2025 09:13:12 02/01/20 25 01/31/2025 drug scree n, urine BUP negati ve Not Available [address], [address], 01/31/2025 09:13:12 02/01/20 25 01/31/2025 drug scree n, urine BZO negati ve Not Available [address], [address], 01/31/2025 09:13:12 02/01/20 25 01/31/2025 drug scree n, urine RADHA negati ve Not Available [address], [address], 01/31/2025 09:13:12 02/01/20 25 01/31/2025 drug scree n, urine FTY negati ve Not Available [address], [address], 01/31/2025 09:13:12 02/01/20 25 01/31/2025 drug scree n, urine MDMA negati ve Not Available [address], [address], 01/31/2025 09:13:12 02/01/20 25 01/31/2025 drug scree n, urine MET negati ve Not Available [address], [address], 01/31/2025 09:13:12 02/01/20 25 01/31/2025 drug scree n, urine MOP negati ve Not Available [address], [address], 01/31/2025 09:13:12 02/01/20 25 01/31/2025 drug scree n, urine THC positi ve Not Available [address], [address], 01/31/2025 09:13:12 02/01/20 25 01/31/2025 drug scree n, urine TCA negati ve Not Available [address], [address], 01/31/2025 09:13:12 02/01/20 25 01/31/2025 drug scree n, urine PCP negati ve Not Available [address], [address], 01/31/2025 09:13:12 02/01/20 25 01/31/2025 drug scree n, urine OXY negati ve Not Available [address], [address], 01/31/2025 09:13:12 02/01/20 25 01/31/2025 drug scree n, urine MTD negati ve Not Available [address], [address], 01/31/2025 09:13:12 04/04/2004/04/2025 HbA1c (hemo globi n A1c), blood HbA1C 5.6 % Not Available [address], [place], [address], 04/04/2025 10:10:44 07/05/2007/06/2025 CBC WITH DIFFE RENTI AL/PL ATELE T WBC 10.1 x10e3 /uL 3.4-10 .8 normal Not Available [facility] ([facility]) [address] [place], [address], 07/06/2025 08:15:27 07/05/2007/06/2025 CBC WITH DIFFE RENTI AL/PL ATELE T RBC 6.55 x10e6 /uL 4.14-5 .80 above high normal Not Available [facility] ([facility]) [address] [place], [address], 07/06/2025 08:15:27 07/05/2007/06/2025 CBC WITH DIFFE RENTI AL/PL ATELE T hemoglobin 18.4 g/dL 13.0-1 7.7 above high normal Not Available [facility] ([facility]) [address] [place], [address], 07/06/2025 08:15:27 07/05/2007/06/2025 CBC WITH DIFFE RENTI AL/PL ATELE T hematocrit 56.0 % 37.5-5 1.0 above high normal Not Available [facility] ([facility]) [address] [place], [address], 07/06/2025 08:15:27 07/05/2007/06/2025 CBC WITH DIFFE RENTI AL/PL ATELE T MCV 86 fL 79-97 normal Not Available [facility] ([facility]) [address] [place], [address], 07/06/2025 08:15:27 07/05/2007/06/2025 CBC WITH DIFFE RENTI AL/PL ATELE T MCH 28.1 pg 26.6-3 3.0 normal Not Available [facility] ([facility]) [address] [facility], [place], [address], 07/06/2025 08:15:27 07/05/2007/06/2025 CBC WITH DIFFE RENTI AL/PL ATELE T MCHC 32.9 g/dL 31.5-3 5.7 normal Not Available [facility] ([facility]) [address] [facility], [place], [address], 07/06/2025 08:15:27 07/05/2007/06/2025 CBC WITH DIFFE RENTI AL/PL ATELE T RDW 13.1 % 11.6-1 5.4 Not Available [facility] ([facility]) [address] [facility], [place], [address], 07/06/2025 08:15:27 07/05/2007/06/2025 CBC WITH DIFFE RENTI AL/PL ATELE T platelets 253 x10e3 /uL 150-45 0 normal Not Available [facility] ([facility]) [address] [place], [address], 07/06/2025 08:15:27 07/05/2007/06/2025 CBC WITH DIFFE RENTI AL/PL ATELE T neutrophils 51 % not estab. normal Not Available [facility] ([facility]) [address] [place], [address], 07/06/2025 08:15:27 07/05/2007/06/2025 CBC WITH DIFFE RENTI AL/PL ATELE T lymphs 38 % not estab. normal Not Available [facility] ([facility]) [address] [place], [address], 07/06/2025 08:15:27 07/05/2007/06/2025 CBC WITH DIFFE RENTI AL/PL ATELE T monocytes 10 % not estab. normal Not Available [facility] ([facility]) [address] [place], [address], 07/06/2025 08:15:27 07/05/2007/06/2025 CBC WITH DIFFE RENTI AL/PL ATELE T eos 0 % not estab. normal Not Available [facility] ([facility]) [address] [place], [address], 07/06/2025 08:15:27 07/05/2007/06/2025 CBC WITH DIFFE RENTI AL/PL ATELE T basos 1 % not estab. 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 0 normal Not Available [facility] ([facility]) [address] [place], [address], 07/06/2025 08:15:27 07/05/2007/06/2025 CBC WITH DIFFE RENTI AL/PL ATELE T lymphs (absolute) 3.9 x10e3 /uL 0.7-3. 1 above high normal Not Available [facility] ([facility]) [address] [place], [address], 07/06/2025 08:15:27 07/05/20 25 07/06/2025 CBC WITH DIFFE RENTI AL/PL ATELE T monocytes(ab solute) 1.0 x10e3 /uL 0.1-0. 9 above high normal Not Available [facility] ([facility]) [address] [facility], [place], [address], 07/06/2025 08:15:27 07/05/2007/06/2025 CBC WITH DIFFE RENTI AL/PL ATELE T eos (absolute) 0.0 x10e3 /uL 0.0-0. 4 normal Not Available [facility] ([facility]) [address] [place], [address], 07/06/2025 08:15:27 07/05/2007/06/2025 CBC WITH DIFFE RENTI AL/PL ATELE T baso (absolute) 0.1 x10e3 /uL 0.0-0. 2 normal Not Available [facility] ([facility]) [address] [place], [address], 07/06/2025 08:15:27 07/05/2007/06/2025 CBC WITH DIFFE RENTI AL/PL ATELE T immature granulocytes 0 % not estab. Not Available [facility] ([facility]) [address] [place], [address], 07/06/2025 08:15:27 07/05/2007/06/2025 CBC WITH DIFFE RENTI AL/PL ATELE T immature grans (abs) 0.0 x10e3 /uL 0.0-0. 1 Not Available [facility] ([facility]) [address] [place], [address], 07/06/2025 08:15:27 07/05/20 25 07/06/2025 CBC WITH DIFFE RENTI AL/PL ATELE T NRBC STEREO COMPILER Not Available [facility] ([facility]) [address] [place], [address], 07/06/2025 08:15:27 07/05/20 25 07/06/2025 CBC WITH DIFFE MARYAM AL/PL SUSHIL T hematology comments: STEREO COMPILER Not Available [facility] ([facility]) [address] [facility], [place], [address], 07/06/2025 08:15:27 07/05/20 25 07/06/2025 COMP. METAB OLIC PANEL (14) glucose 75 mg/dL 70-99 normal Not Available [facility] ([facility]) [address] [facility], [place], [address], 07/06/2025 08:15:27 07/05/20 25 07/06/2025 COMP. METAB OLIC PANEL (14) BUN 15 mg/dL 6-24 normal Not Available [facility] ([facility]) [address] [facility], [place], [address], 07/06/2025 08:15:27 07/05/20 25 07/06/2025 COMP. METAB OLIC PANEL (14) creatinine 1.65 mg/dL 0.76-1 .27 above high normal Not Available [facility] ([facility]) [address] [facility], [place], [address], 07/06/2025 08:15:27 07/05/20 25 07/06/2025 COMP. METAB OLIC PANEL (14) eGFR 49 mL/mi n/1.7 3 >59 below low normal Not Available [facility] ([facility]) [address] [facility], [place], [address], 07/06/2025 08:15:27 07/05/20 25 07/06/2025 COMP. METAB OLIC PANEL (14) BUN/creatini ne ratio 9 9-20 normal Not Available [facility] ([facility]) [address] [place], [address], 07/06/2025 08:15:27 07/05/20 25 07/06/2025 COMP. METAB OLIC PANEL (14) sodium 134 mmol/ L 134-14 4 normal Not Available [facility] ([facility]) [address] [place], [address], 07/06/2025 08:15:27 07/05/20 25 07/06/2025 COMP. METAB OLIC PANEL (14) potassium 4.1 mmol/ L 3.5-5. 2 normal Not Available [facility] ([facility]) [address] [place], [address], 07/06/2025 08:15:27 07/05/2007/06/2025 COMP. METAB OLIC PANEL (14) chloride 98 mmol/ L 96-106 normal Not Available [facility] ([facility]) [address] [place], [address], 07/06/2025 08:15:27 07/05/20 25 07/06/2025 COMP. METAB OLIC PANEL (14) carbon dioxide, total 20 mmol/ L 20-29 normal Not Available [facility] ([facility]) [address] [place], [address], 07/06/2025 08:15:27 07/05/20 25 07/06/2025 COMP. METAB OLIC PANEL (14) calcium 10.1 mg/dL 8.7-10 .2 normal Not Available [facility] ([facility]) [address] [place], [address], 07/06/2025 08:15:27 07/05/20 25 07/06/2025 COMP. METAB OLIC PANEL (14) protein, total 7.9 g/dL 6.0-8. 5 normal Not Available [facility] ([facility]) [address] [place], [address], 07/06/2025 08:15:27 07/05/20 25 07/06/2025 COMP. METAB OLIC PANEL (14) albumin 4.8 g/dL 3.8-4. 9 normal Not Available [facility] ([facility]) [address] [place], [address], 07/06/2025 08:15:27 07/05/20 25 07/06/2025 COMP. METAB OLIC PANEL (14) globulin, total 3.1 g/dL 1.5-4. 5 Not Available [facility] ([facility]) [address] [place], [address], 07/06/2025 08:15:27 07/05/20 25 07/06/2025 COMP. METAB OLIC PANEL (14) bilirubin, total 0.6 mg/dL 0.0-1. 2 normal Not Available [facility] ([facility]) [address] [place], [address], 07/06/2025 08:15:27 07/05/20 25 07/06/2025 COMP. METAB OLIC PANEL (14) alkaline phosphatase 87 IU/L 47-123 normal Not Available [facility] ([facility]) [address] [place], [address], 07/06/2025 08:15:27 07/05/20 25 07/06/2025 COMP. METAB OLIC PANEL (14) AST (SGOT) 42 IU/L 0-40 above high normal Not Available [facility] ([facility]) [address] [place], [address], 07/06/2025 08:15:27 07/05/20 25 07/06/2025 COMP. METAB OLIC PANEL (14) ALT (SGPT) 37 IU/L 0-44 normal Not Available [facility] ([facility]) [address] [place], [address], 07/06/2025 08:15:27 07/05/20 25 07/06/2025 HEMOG LOBIN A1C hemoglobin A1C 5.8 % 4.8-5. 6 above high normal Predi abete s: 5.7 - 6.4 Diabe maurisio: >6.4 Glyce danie contr ol for adult s with diabe maurisio: <7.0 Not Available [facility] ([facility]) [address], [place], [address], 07/06/2025 08:15:28 07/05/2007/05/2025 drug scree n, urine AMP negati ve Not Available [address], [address], 07/05/2025 09:15:49 07/05/2007/05/2025 drug scree n, urine BAR negati ve Not Available [address], [address], 07/05/2025 09:15:49 07/05/2007/05/2025 drug scree n, urine BUP negati ve Not Available [address], [address], 07/05/2025 09:15:49 07/05/2007/05/2025 drug scree n, urine BZO negati ve Not Available [address], [address], 07/05/2025 09:15:49 07/05/2007/05/2025 drug scree n, urine RADHA negati ve Not Available [address], [address], 07/05/2025 09:15:49 07/05/2007/05/2025 drug scree n, urine FTY negati ve Not Available [address], [address], 07/05/2025 09:15:49 07/05/2007/05/2025 drug scree n, urine MDMA negati ve Not Available [address], [address], 07/05/2025 09:15:49 07/05/2007/05/2025 drug scree n, urine MET negati ve Not Available [address], [address], 07/05/2025 09:15:49 07/05/2007/05/2025 drug scree n, urine MOP negati ve Not Available [address], [address], 07/05/2025 09:15:49 07/05/2007/05/2025 drug scree n, urine MTD negati ve Not Available [address], [address], 07/05/2025 09:15:49 07/05/2007/05/2025 drug scree n, urine OXY negati ve Not Available [address], [address], 07/05/2025 09:15:49 07/05/2007/05/2025 drug scree n, urine PCP negati ve Not Available [address], [address], 07/05/2025 09:15:49 07/05/2007/05/2025 drug scree n, urine TCA negati ve Not Available [address], [address], 07/05/2025 09:15:49 07/05/2007/05/2025 drug scree n, urine THC positi ve Not Available [facility] [address] [facility], [place], [address], 07/05/2025 09:15:49 11/30/1911/29/2024 US, liver No observ ation record ed[facility] [address], [place], [address], 11/30/2024 14:15:43 01/05/2001/04/2025 CT, abdom en + pelvi s, w/ contr ast No observ ation record ed. [facility] [address], [place], [address], 01/04/2025 11:27:55 Result Notes None recorded. Problems Name Problem SNOMED Code Status Onset Date Resolution Date Notes Provider Name and Address Organization Details Recorded Time Type 2 diabetes mellitus 14648707 Active Ashley Martinez null, [place] - [facility] 11:12:21 Asthma 217127682 Active Ashley Martinez null, [place] - [facility] 11:12:35 Hypertensi ve disorder 82148772 Active Ashley Michelle null, [place] - [facility] 11:12:45 Seasonal allergic rhinitis 847994732 Active Ashley Martinez null, [place] - [facility] 11:13:17 Obesity 886691710 Active Ashley [place] - [facility] 11:13:32 Irritable bowel syndrome 40005074 Active 2022 Josesito Can, [employer] [address], [place], [address] , [place] - [facility] 3 15:45:37 Peripheral neuropathy due to type 2 diabetes mellitus 8339788572358 Active 2022 Josesito Can, [employer] [address], [place], [address] , [place] [facility] 3 15:31:42 Sleep apnea 26240667 Active 2022 Josesito Can, [employer] [address], [place], [address] , [place] - [facility] 15:31:58 Neuropathy 100428907 Active 2023 Josesito Can, [employer] [address], [place], [address] , [place] - [facility] 4 09:27:16 Chronic neck pain 7458212416984 Active 2024 Aimee Roper null, [place] - [facility] 5 10:33:42 Chronic kidney disease stage 3 632112234 Active 2024 Josesito Can, [employer] [address], [place], [address] , [place] - [facility] 5 08:43:16 Hyperlipid emia 50646690 Active 2024 Aimee Dwights null, [place] - [facility] 08:45:06 Chronic gout without tophus 346674726 Active 2024 Aimee Dwights null, [place] - [facility] 08:46:30 Bilateral chronic pain of upper limbs 5468484974952 9106 Active 2024 Josesito Can, [employer] [address], [place], [address] , [place] - [facility] 5 15:46:00 Problem Notes None recorded. Procedures Surgical History Date Name Laterality Status Provider Name and Address Organization Details Recorded Time 08/20/19 22 Orthopedic Surgery completed Aimee Dwights [place] - [facility] 01/06/2024 08:17:13 03/07/20 21 Arthroscopic Surgery completed Ashley Martinez [place] - [facility] 07/26/2022 11:05:22 Hernia Repair completed Aimee Stears [place] - [facility] 01/06/2024 08:17:07 Imaging Results None recorded. Procedure Notes None recorded. Medical Equipment None Reported. Allergies Allergen ID Allergen Name Allergen Category Reaction Reaction Severity Criticality Documentation Date Start Date Code Code System Note Provider Name and Address Organization Details Recorded Time 100708 Lipitor medicatio n rash moderate high 07/26/2022 39475 5 RxNorm Ashley Martinez null, [place] - [facility] 2 11:06:03 330854 atorvasta tin medicatio n rash Not available Not available 06/27/20252020 18693 RxNorm Aimee Jacquelin null, [place] - [facility] 13:09:43 Medications Name Sig Start [...] TAKE 1 TABLET BY MOUTH ON FRIDAY, Y AND 06/25 completed Not Available Not Available [...] completed Not Available Not Available Not Available [employer] Glob[employer] 3 Plus Sensor device USE DIRECTED CHANGE EVERY 15 DAYS active Not Available Not Available No t Available Vitals Date Recorded Body height Body mass index (BMI) Body weight Heart rate Respiratory rate Oxygen saturation Body temperature Systolic And Diastolic Provider Name and Address Organization Details Last Updated DateTime 170.18 cm 47.6 kg/m2 919780. 08 g 76 /min 18 /min 97 % 97.8 [degF] 124/78 mm[Hg] Aimee Quintanillas [place] - [facility] 08:39:21 Date Recorded Body height Oxygen saturation Heart rate Body mass index (BMI) Body weight Respiratory rate Pain severity - 0-10 verbal numeric rating [Score] - Reported Systolic And Diastolic Provider Name and Address Organization Details Last Updated DateTime 5 170.18 cm 95 % 74 /min 44.6 kg/m2 372862. 83 g 18 /min 0 119/64 mm[Hg] Ashley Martinez [place] - [facility] 09:10:23 Date Recorded Body height Body mass index (BMI) Body weight Heart rate Oxygen saturation Respiratory rate Pain severity - 0-10 verbal numeric rating [Score] - Reported Systolic And Diastolic Provider Name and Address Organization Details Last Updated DateTime 5 170.18 cm 43.9 kg/m2 879625. 86 g 72 /min 95 % 18 /min 6 114/74 mm[Hg] Ashley Martinez [place] [facility] 09:29:53 Date Recorded Body height Respiratory rate Body mass index (BMI) Body weight Heart rate Oxygen saturation Systolic And Diastolic Provider Name and Address Organization Details Last Updated DateTime 5 170.18 cm 18 /min 41.8 kg/m2 101789. 16 g 68 /min 98 % 118/77.97 mm[Hg] Aimee Roper [place] - [facility] 13:09:02 Date Recorded Body height Body mass index (BMI) Body weight Body temperature Heart rate Oxygen saturation Respiratory rate Pain severity - 0-10 verbal numeric rating [Score] - Reported Systolic And Diastolic Provider Name and Address Organization Details Last Updated DateTime 5 170.18 cm 42 kg/m2 060711. 76 g 98.1 [degF] 67 /min 97 % 18 /min 0 122/78 mm[Hg] Ashley Martinez [place] - [facility] 09:09:37 Social History Question Answer Notes LastModified by Organizat ion Details LastModified Time Tobacco Smoking Status Never Smoker Ashley nichole [place] - [facility] 07/26/2022 11:05:16 Do You [...] Or The Highest Degree You Have Received? [id number] Information not available 07/26/2022 Have There Been Any Changes To Your Family Or Social Situation? No Information no t available 04/08/2023 What Is The Fluoride Status Of Your Home? Unknown Information not available 04/08/2023 Do You Have A Medical Power Of Pipe Coverer Helper? No Information not available 04/08/2023 What Was [...] Functional Status Question Answer Note LastModified by [employer] ion Details LastModified Time Do you or [...] anxious, or unable to sleep at night)? [id number] Information not available 07/26/2022 Do you have [...] Time Tdap 04/08/2024 completed Josesito Can APRN [address] [place] [address], [address], [place] - [facility] 04/08/2024 11:44:24 Past Encounters Encounter ID Performer Location Encounter Start Date Encounter Closed Date Diagnosis/Indication Diagnosis SNOMED-CT Code Diagnosis ICD10 Code Diagnosis IMO Codes Diagnosis Note [id number] Josesito Can APRN [address] [address] 07/26/2022 10:48:59 07/26/2022 11:52:04 Pharyngitis 607583681 J02.9 Influenza caused by Influenza A virus 511852190 J09.X2 no sign of a bacterial infection. likely viral. viruses can take 7-14 days to run their course. nasal saline and bulb syringe to remove nasal drainage to help with congestion . monitor temp. Tylenol or Motrin as needed for pain or fever. encourage fluids, water, Gatorade, power aide, Pedialyte if infant/tod dler/child warm salt water gargles warm fluids sore throat lozenges sleep elevated humidifier /vaporizer follow up immediatel y for new or worsening symptoms or no noticeable improvemen t over the next 48-72 hours [id number] Josesito Can [address] [address] 09/02/2022 09:15:18 09/02/2022 10:24:17 Type 2 diabetes mellitus 01094279 E11.9 *Diabetic Measures: Metformin: yes PAULETTE/ARB:morro borges ASA:yes Statin:yes GLP:yesdis cussed diet and exercise plan Obesity 794477687 E66.9 Hypertensive disorder 38 106258 I10 Screening for malignant neoplasm of prostate 802440395 Z12.5 [id number] Josesito Can [address] [address] 11/28/2022 11:18:49 11/28/2022 11:56:53 Hypertensive disorder 36778302 I10 Obesity 759765482 E66.9 Type 2 hope betes mellitus 97246309 E11.9 *Diabetic Measures: Metformin: yes PAULETTE/ARB:morro borges ASA:yes Statin:yes GLP:yesdis cussed diet and exercise plan [id number] Josesito Can [address] [address] 04/08/2023 14:34:24 04/08/2023 15:45:40 Type 2 diabetes mellitus 78352183 E11.9 *Diabetic Measures:M etformin:y esACE/ARB: yesASA:yes Statin:yes GLP:yesdis cussed diet and exercise [id number] well controlled - a1c 5.4 will back off metformin to 500mg po bidif ok in 3 months will cut back ozempic.le [address] jardiance due to heart failure Body mass index 40+ - severely obese 507535578 Z68.42 45.4 Morbid obesity 781438835 E66.01 [id number] [facility] [address] [address] 05/30/2023 16:18:32 05/30/2023 16:50:49 Asthma 354139070 J45.909 Hypertensive disorder 38 389431 I10 Irritable bowel syndrome 69246849 K58.9 Type 2 hope betes mellitus 30263780 E11.9 *Diabetic Measures:M etformin:y esACE/ARB: yesASA:yes Statin:yes GLP:yesdis cussed diet and exercise argto2d well controlled - a1c 5.4 will back off metformin to 500mg po bidif ok in 3 months will cut back ozempic.le ave jardiance due to heart failure Paresthesi a of lower extremity 924168745 R20.2 Foot callus 694904800 L8 4 Paresthesia 76161914 R20 .2 [id number] [place] [address] 06/02/2023 09:16:46 06/02/2023 11:47:20 Type 2 diabetes mellitus 40728827 E11.9 *Diabetic Measures:M etformin:y esACE/ARB: yesASA:yes Statin:yes GLP:yesdis cussed diet and exercise jewhz9i well controlled - a1c 5.4 will back off metformin to 500mg po bidif ok in 3 months will cut back ozempic.le [address] jardiance due to heart failure [id number] [facility] [place] [id number] 07/08/2023 13:54:27 07/08/2023 15:10:08 Type 2 diabetes mellitus 31515906 E11.9 *Diabetic Measures:M etformin:y esACE/ARB: yesASA:yes Statin:yes GLP:yesdis cussed diet and exercise lgnsp1p well controlled will increase ozempic to help with wt and eating.grecia ve jardiance due to heart failure Peripheral neuropathy due to type 2 diabetes mellitus 5756652962 107 E11.42 follow up with neurology Sleep apnea 90565718 G47 .30 continue c pap [id number] Josesito Can[address] [address] 09/30/2023 10:58:48 09/30/2023 11:48:34 Pain of right shoulder joint 6106214974 2033031 M25.511 Asthma 233726259 J45.90 9 Type 2 hope betes mellitus 82077306 E11.9 *Diabetic Measures:M etformin:y esACE/ARB: yesASA:yes Statin:yes GLP:yesdis cussed diet and exercise [id number] well controlled will increase ozempic to help with wt and eating.grecia ve jardiance due to heart failure [id number] Josesito Chawlafrancisjuan carlos[address] [address] 10/06/2023 08:18:13 10/06/2023 09:08:14 Type 2 diabetes mellitus 51760328 E11.9 *Diabetic Measures:M etformin:y esACE/ARB: yesASA:yes Statin:yes GLP:yesdis cussed diet and exercise iidan2y well controlled will increase ozempic to help with wt and eating.grecia ve jardiance due to heart failure Hypertensive disorder 38 904430 I10 Obesity 175216659 E66.9 [id number] [facility] [address] 01/06/2024 07:58:52 01/06/2024 08:58:31 Type 2 diabetes mellitus 95838987 E11.9 *Diabetic Measures:M etformin:y esACE/ARB: yesASA:yes Statin:yes GLP:yesdis cussed diet and exercise hrlvv3r well controlled due to cre elevated- decrease metformin to once a day and monitor glucose if glucose elevates restartlea ve jardiance due to heart failure Hypertensive disorder 38 683790 I10 Body mass index 40+ - severely obese 267859157 Z68.41 44.3 Morbid obesity 084856578 E66.01 [id number] [facility] [address] 04/08/2024 08:57:18 04/08/2024 11:07:46 Type 2 diabetes mellitus 90560898 E11.9 *Diabetic Measures:M etformin:y esACE/ARB: yesASA:yes Statin:yes GLP:yesdis cussed diet and exercise thedr5d well controlled leave jardiance due to heart failure Hypertensive disorder 38 403552 I10 Peripheral neuropathy due to type 2 diabetes mellitus 0259603117 107 E11.42 follow up with neurology Gout 48885411 M10.9 Gastroesop hageal reflux disease 524123922 K21.9 Hyperlipidemia 91783952 E78.5 Type 2 hope betes mellitus without complication 100884212 E11.9 General ex amination of patient 054923194 Z00.00 Hyperlipid emia screening 645645892 Z13.220 Screening for malignant neoplasm of prostate 836643868 Z12.5 Endocrine/ metabolic screening 884797301 Z13.228 Exercises education, guidance, and counseling 734712996 Z71.82 The patient was advised to continue a healthy diet and exercise regularly. Dietary ma nagement surveillance 272388092 Z71.3 Active or passive immunization 567929430 Z23 HIV screening 553749197 Z11.4 Hepatitis C screening 41 3003811 Z11.59 Candidiasis of skin 4988 3006 B37.2 [id number] [place] [id number] 04/16/2024 13:46:45 04/16/2024 14:11:53 Screening for malignant neoplasm of prostate 653869933 Z12.5 [id number] [facility] Pen[address] [address] 04/26/2024 08:15:40 04/26/2024 08:36:16 Serum creatinine above reference range 161867582 R79.89 [id number] [facility] [address] 05/24/2024 08:53:24 05/24/2024 10:00:35 Type 2 diabetes mellitus 21924013 E11.9 *Diabetic Measures:M etformin:y esACE/ARB: yesASA:yes Statin:yes GLP:yesdis cussed diet and exercise tqeaa2s well controlled leave jardiance due to heart failure [id number] [place] [id number] 1 06/25/2024 08:35:43 06/25/2024 09:45:45 Long-term drug therapy [id number] Z79.891 Peripheral neuropathy due to type 2 diabetes mellitus 7420067126 107 E11.42 follow up with neurologyt rial of gabapentin Pt compliant with plan of careKasper reviewedme dication compliance discussedL ast uds:Control substance agreement on file Neck pain 67725093 M54.2 Pain of le ft shoulder joint [id number] 5418795 M25.512 Screening for malignant neoplasm of colon 608675850 Z12.11 Type 2 hope betes mellitus 72722861 E11.9 *Diabetic Measures:M etformin:y esACE/ARB: yesASA:yes Statin:yes GLP:yesdis cussed diet and exercise gvjxo0w well controlled leave jardiance due to heart failure [id number] Josesito Can APRN [address] [address] 07/23/2024 08:34:02 07/23/2024 09:45:25 Peripheral neuropathy due to type 2 diabetes mellitus 6719086324 107 E11.42 follow up with neurologyt rial of gabapentin Pt compliant with plan of careKasper reviewedme dication compliance discussedL ast uds:Control substance agreement on filegabape ntin is to be bid Neuropathy 236903640 G62 .9 Body mass index 40+ - severely obese 058721384 Z68.41 44.3 Morbid obesity 549986601 E66.01 Chronic renal failure 90 339410 N18.9 will monitor kidney function close while taking lasix.labs next month for dm Neck pain 83655404 M54.2 [id number] Josesito Can [address] [address] 08/20/2024 08:41:42 08/20/2024 09:35:33 Peripheral neuropathy due to type 2 diabetes mellitus 4843665323 107 E11.42 follow up with neurologyt rial of increase gabapentin Pt compliant with plan of careKasper reviewedme dication compliance discussedL ast uds:Control substance agreement on file Type 2 hope betes mellitus 01073086 E11.9 *Diabetic Measures:M etformin:y esACE/ARB: yesASA:yes Statin:yes GLP:yesdis cussed diet and exercise akppv8h well controlled leave jardiance due to heart failure Hypertensive disorder 38 017310 I10 recheck labs [id number] Maldonadobettina valerie [address] [address] 08/27/2024 10:18:29 08/27/2024 11:30:05 Cervical spine sprain 3449351087 9108 S13.4XXD mri results discussed with ptpt wants to try chiropract or Pain of le ft hip joint [id number] 50538 M25.552 pt does not want xrays MRI scan abnormal 947817 003 R93.89 [id number] Maldonadobettina valerie [address] [address] 09/06/2024 08:40:51 09/06/2024 08:54:11 Serum creatinine above reference range 001382881 R79.89 [id number] [facility] [address] [address] 09/17/2024 08:57:28 09/17/2024 10:17:48 Chronic neck pain 2234287731 107 M54.2 follow up with chiropract or Asthma 354776392 J45.90 9 follow up with pulmonolog y Type 2 hope betes mellitus 48168171 E11.9 *Diabetic Measures:M etformin:y esACE/ARB: yesASA:yes Statin:yes GLP:yesdis cussed diet and exercise zaukx2h well controlled leave jardiance due to heart failure Hypertensive disorder 38 634300 I10 Neuropathy 103203440 G62 .9 Pt compliant with plan of careKasper reviewedme dication compliance discussedL ast uds:Control substance agreement on file Serum crea tinine above reference range 308889311 R79.89 pt states he sees kidney md next week and wants to hold on labs because he is getting them done that morning prior to appointmen t Peripheral neuropathy due to type 2 diabetes mellitus 2955074850 107 E11.42 Pt compliant with plan of careKasper reviewedme dication compliance discussedL ast uds:Control substance agreement on file [id number] Josesito Pamella [address] [address] 10/25/2024 10:21:28 10/25/2024 11:09:08 Edema of lower extremity 518912421 R60.0 Type 2 hope betes mellitus 05827159 E11.9 *Diabetic Measures:M etformin:y esACE/ARB: yesASA:yes Statin:yes GLP:yesdis cussed diet and exercise nwaia3w well controlled leave jardiance due to heart failure [id number] Milliegenetbettina Chawlavalerie [address] [address] 11/18/2024 08:22:20 11/18/2024 09:57:06 Type 2 diabetes mellitus 42768890 E11.9 *Diabetic Measures:M etformin:y esACE/ARB: yesASA:yes Statin:yes GLP:yesdis cussed diet and exercise siuur7u well controlled leave jardiance due to heart failure Gout 27720289 M10.9 Gastroesop hageal reflux disease 569718153 K21.9 Hyperlipidemia 04209949 E78.5 Peripheral neuropathy due to type 2 diabetes mellitus 4009067590 107 E11.42 Pt compliant with plan of careKasper reviewedme dication compliance discussedL ast uds:Control substance agreement on file Hypertensive disorder 38 717452 I10 Mycosis 5471119 B37.9 527412 discussed proper care due to meds to prevent yeast [id number] Josesito Chawlavalerie [employer] [address] [address] 01/31/2025 08:42:29 01/31/2025 09:55:40 Peripheral neuropathy due to type 2 diabetes mellitus 9585277303 107 E11.42 Pt compliant with plan of careKasper reviewed # manual [id number] edication compliance discussedL ast uds:01/14/25 Control substance agreement on file Long-term current use of drug therapy 670989161 Z79.899 21651735 Long-term drug therapy 440256964 Z79.843 [id number] Josesito Can [place] [phone] 1 04/04/2025 09:17:43 04/04/2025 10:24:28 Type 2 diabetes mellitus 64937772 E11.9 *Diabetic Measures:M etformin:y esACE/ARB: yesASA:yes Statin:yes GLP:yesdis cussed diet and exercise ozmlu5n well controlled leave jardiance due to heart failure Peripheral neuropathy due to type 2 diabetes mellitus 3718974109 107 E11.42 Pt compliant with plan of caremedica tion compliance discussedL ast uds: 5Control substance agreement on file Pain of right heel [address] 79255 447218 M79.671 49001986 Pain of le ft shoulder joint 8784098326 1669284 M25.512 152562 [id number] [facility] [place] [phone] 1 06/27/2025 13:00:07 06/27/2025 13:39:50 Acute contact dermatitis 702953758 L25.9 364 apply with benadrylif worsen or no improvemen t return [id number] [facility] [place] [phone] 1 07/05/2025 08:55:38 07/05/2025 10:38:38 Peripheral neuropathy due to type 2 diabetes mellitus 5637541069 107 E11.42 Pt compliant with plan of caremedica tion compliance discussedL ast uds:Control substance agreement on filekasper #[id number] - manual Hypertensive disorder 38 031262 I10 Hyperlipidemia 13524852 E78.5 10022637 Type 2 hope betes mellitus 94204698 E11.9 *Diabetic Measures:M etformin:y esACE/ARB: yesASA:yes Statin:yes GLP:yesdis cussed diet and exercise fsdqe3o well controlled leave jardiance due to heart failure Long-term current use of drug therapy 659036398 Z79.899 70167082 Health Concerns Section Related Observation LastModified by Organization Detai ls LastModified Time None Recorded Concern Status LastModified by Organization Details LastModified Time None Recorded Advance Directives Directive N: Payers Insurance Date Sequence Insurance Name Policy Number Policy Elam Covered Member ID Elam Member ID Guarantor Name 07/03/2025 1 [facility] [facility] [place] [facility] [place] [id number] [place] 06/27/2025 [place] [facility] [place] (MEDICAID) Ranchobarbara Reid [id number] [place] Reid Notes Date Note Type Note Provider Name and Address Organization Details Recorded Time 11/18/2024 text/html 54 year old male who presents to the office today for a follow up ondiabetes, hyperlipidemia, gout, gerd, neuropathypt states neuropathy doing well on meds Josesito Can APRN [address], [place], [address], [place] - [facility] 11/18/2024 15:30:52 01/31/2025 text/html 54 yr old male presents to follow up on neuropathy and refill gabapentin. pt states neuropathy is well controlled on gabapentin. pt states symptoms still present but tolerable Ashley Martinez [facility], [place] - [facility] 01/31/2025 13:48:58 04/04/2025 text/html ROS as noted in the HPI 54 yr old male presents for a follow up on neuropathy- unsure if he wants to stay on gabapentin, read a article about side effects of gabapentin. pt states gabapentin helps with neuropathy. pt states he is having rt heel and lt shoulder pain. pt states heel pain worse in am or if he walks or steps a diff. pt states shoulder has no injury that he knows of, limited rom, weakness and pain with motion. pt states been going of for months but getting worse. pt states he had xrays of neck that did not show anything Josesito Can APRN [address], [place], [address], [place] - [facility] 05/03/2025 14:05:40 06/27/2025 text/html ROS as noted in the HPI 55 year old male who presents to the office today with concerns ofitchy rash on the back of bilateral thighshas had about 2-3 weekscortizone does not help Milliegenetbettina Chawlavalerie, LASHAE [address], [place], [address], [place] - [facility] 06/27/2025 13:41:47 07/05/2025 text/html 55 yr old male presents for labs. He also states he is getting faulty readings from the adalid sensor. He has compared with glucometer and readings are 20+ numbers off.needs gabapentin refilled-pt states helps with his neuropathy- pt states he used cbd gummy for his pain and neuropathy. Josesito Can, LASHAE [address], [place], [address], [place] - [facility] 07/05/2025 11:43:58
--- OUTSIDE RECORDS SUMMARY | 2025-08-05 08:29 | XMS_ITS | Clinical Summary ---
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 Active fluticasone propion-salmeter oL (ADVAIR DISKUS) 100-50 mcg/dose Inhl Disk with DeviceIndication s:Strain of right shoulder, initial encounter Inhale into the lungs 2 times daily. Active metoprolol (LOPRESSOR) 25 mg Oral TabletIndication s:Strain of right shoulder, initial encounter Take by mouth 2 times daily. Active fluticasone propionate (FLONASE) 50 mcg/actuation Nasl Sanders, SuspensionIndica tions:Strain of right shoulder, initial encounter by Nasal route daily. Active losartan-hydroch lorothiazide (HYZAAR) 100-12.5 mg Oral TabletIndication s:Strain of right shoulder, initial encounter Take 1 Tab by mouth daily. Active meloxicam (MOBIC) 15 mg Oral TabletIndication s:Strain of right shoulder, initial encounter Take 1 Tab by mouth daily. 30 Tab 1 01/22/2021 Active Fenofibrate 150 mg Oral Capsule Take 150 mg by mouth daily. Active Surgical History Surgery Date Site/Laterality Comments HERNIA REPAIR Medical History Medical History Date Comments Diverticulosis Asthma Hypertension Family History Medical History Relation Name Comments Cancer Father Diabetes Mother Heart Disease Mother Cancer Paternal Grandfather High Blood Pressure Paternal Grandfather Relation Name Status Comments Father Mother Paternal Grandfather Social History Tobacco Use Types Packs/Day Years Used Date Smoking Tobacco: Never Smokeless Tobacco: Never Alcohol Use Standard Drinks/Week Comments Never 0 (1 standard drink = 0.6 oz pur e alcohol) AUDIT-C Answer Date Recorded Q1: How often do you have a drink containing alc ohol? Never 01/22/2021 Q2: How many drinks containi ng alcohol do you have on a typical day when you are drinking? Not asked 01/22/2021 Q3: How often do you have six or more drinks on one occasion? Never 01/22/2021 Sex and Gender Information Value Date Recorded Sex Assigned at Not on file Legal Sex Male 2:55 PM EDT Gender Identity Not on file Sexual Orientation Not on file Last Filed Vital Signs Vital Sign Reading Time Taken Comments Blood Pressure - - Pulse - - Temperature - - Respiratory Rate - - Oxygen Saturation - - Inhaled Oxygen Concentration - - Weight 135.6 kg (299 lb) 02/15/2021 2:02 PM EDT Height 172.7 cm (5' 8 ) 02/15/2021 2:02 PM EDT Body Mass Index 45.46 02/15/2021 2:02 PM EDT Plan of Treatment Health Maintenance Due Date Last Done Comments Annual Wellness Exam 1974 DTaP/TDaP/Td (1 - Tdap) 1990 Hepatitis B Vaccine (1 of 3 - 19+ 3-dose series) 1990 Cologuard 2016 Colon Cancer Screening 2016 Colonoscopy 2016 FIT 2016 Sigmoidoscopy 2016 Virtual Colonography 2016 Pneumococcal Vaccine 50+ (1 of 1 - PCV) 2021 Zoster (1 of 2) 2021 COVID-19 Vaccine (1 - 2024-2 6 season) 2025 Influenza Vaccine (#1) 2025 Meningococcal B Vaccine Aged Out No l onger eligible based on patient's age to complete this topic Insurance [employer] Member Subscriber Plan / Payer ( fective 2021-Present) Name:Brittany Elias Relation to Subscriber:Employee Name:BRITTANY ELIAS Date of :1970 (Home) Address: [address] [place], [place] [id number] Payer ID:Not on file Group ID:[employer] [place] [employer] [id number] Type:Not on file Address: [address] [address] [place] [address] [employer] Member Subscriber Plan / Payer (Ef fective 2021-Present) Name:Brittany Elias Relation to Subscriber:Employee Name:BRITTANY ELIAS Date of :1970 (Home) Address: [address] [id number] Payer ID:Not on file Group ID:[employer] [place] [employer] [id number] Type:Not on file Address: [address] [place] [address]
--- NOTE | 2025-08-05 08:45 | CA_ITS ---
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: Pebbles Price, RCS, RVS Ht: 5 ft 7 in Wt: 261lbs BSA: 2.26 BP: 135/85 mmHg Indications: SOB, COPD, Edema, HFpEF, ABN EKG 2D Dimensions IVSd 1.05 cm M: 0.6-1.2 LVEF (Visual) 50.70 % PWd 1.08 cm M: 0.6 - 1.2 LA Volume 59.20 mL LVDd 5.06 cm M: 4.2 - 5.9 LA Volume Index 26.488175 mL/m2 (M/F) 16-34 LVDs 3.75 cm M: 2.5 - 4.0 EF AP4 54.80 % Left Atrium 4.08 cm M: 3.0 - 4.0 GL Strain -19.4 % M-Mode Dimensions RVDd 2.39 cm (0.9-2.6) LA Diam 4.45 cm (1.9-4.0) LVDd 5.88 cm (3.5-5.7) LVDs 4.08 cm (3.5-5.7) IVSd 0.95 cm (0.6-1.1) PWd 0.95 cm (0.6-1.1) EF (Teich) 50.20% EPSs 0.50 cm FS 25.80% EDV (Teich) 147.40 mL TAPSE 2.28 (<1.7) ESV (Teich) 73.40 mL LV Diastology E Decel Time 190 (160-240 msec) E/A Ratio 1.04 MED A' 10.60 cm/s LAT A' 9.40 cm/s Aortic Valve MARIA G Index 0.78 cm2/m2 AoV Peak Lukas. 171.0 (50-130 cm/s) AO Peak GR. 11.70 mmHg AO Mean GR. 6.00 (<5 mmHg) AO VTI 33.3 (18-25 cm) MARIA G (VTI) 1.82 (2.5-4.5 cm2) Mitral Valve MV A Velocity 67.0 (40-130 cm/s) E/A Ratio 1.04 Pulmonary Valve PV Peak Velocity 98.0 (50-150 cm/s) Left Ventricle The left ventricle is normal size. Left ventricular systolic function is normal. The left ventricular ejection fraction is within the normal range. There is increased left ventricular wall thickness. There is normal LV segmental wall motion. The left ventricular diastolic function is normal. LVEF is 60%. Right Ventricle The right ventricle is normal size. The right ventricular systolic function is normal. Atria The left atrium is mildly dilated. The right atrium is mildly dilated. There is no color Doppler evidence of interatrial shunt. Aortic Valve The aortic valve is mildly thickened. There is no hemodynamically significant aortic valvular stenosis. No aortic regurgitation is present. Mitral Valve The mitral valve is normal in structure. No evidence of mitral valve stenosis. Trace mitral regurgitation is present. Tricuspid Valve The tricuspid valve leaflets are thin and pliable. Trace tricuspid regurgitation. There is insufficient TR jet to estimate RVSP. Pulmonic Valve The pulmonary valve is grossly normal in structure. Trace pulmonic valve regurgitation is present. Great Vessels The aortic root is normal in size. IVC is normal in size and collapses >50% with inspiration. Pericardium There is no pericardial effusion. Other Information Study Quality: Fair Conclusion Normal biventricular systolic function. Mild biatrial dilation. No significant valvular stenosis or regurgitation. Electronically signed by : Michelle Singer MD 08/12/2025 14:20:25
[2025-08-05 09:36] LABS: Hematocrit 51.8 % (42.0-52.0); Hemoglobin 16.7 g/dL (14.1-18.0); Immature Granulocytes % 0.3 %; Mean Corpuscular HGB Conc 32.2 g/dL (31.8-35.4); Mean Corpuscular Hemoglobin 27.9 pg (27.0-31.2); Mean Corpuscular Volume 86.5 fl (80-94); Nucleated Red Blood Cells % 0 %; Platelet Count 254 K/mm3 (142-424); Red Blood Count 5.99 M/mm3 (4.60-6.20); Red Cell Distribution Width-SD 44.2 fL; White Blood Count 8.9 K/mm3 (4.8-10.8)
[2025-08-05 10:06] LABS: Albumin Level 4.8 g/dl (3.5-5.0)
[2025-08-05 10:07] LABS: Chloride 104 mmol/L (98-107); Potassium 4.2 mmoL/L (3.5-5.1); Sodium 140 mmol/L (136-145)
[2025-08-05 10:09] LABS: Alanine Aminotransferase 43 U/L (12-78); Anion Gap 15.2 mEq/L (5-15); Aspartate Amino Transferase 39 U/L (17-59); Bilirubin,Unconjugated 0.4 mg/dL (0.0-1.1); Blood Urea Nitrogen 17 mg/dl (9-20); Carbon Dioxide 25 mmol/L (22.0-30.0); Creatinine,Serum 1.40 mg/dl (0.66-1.25); Estimated Glomerular Filt Rate 53 ml/min (>60); GFR (African American) 64 ML/MIN (>60); Total Protein,Serum 7.6 g/dl (6.3-8.2)
[2025-08-05 10:10] LABS: Alkaline Phosphatase 61 U/L (38-126); Bilirubin,Direct 0.2 mg/dl (0.0-0.4); Bilirubin,Indirect 0.5 mg/dL (0.0-0.9); Bilirubin,Total 0.7 mg/dl (0.2-1.3); Calcium 10.6 mg/dl (8.4-10.2); Cholesterol 156 mg/dl (140-200); Glucose 61 mg/dl (74-100); HDL Cholesterol 55 mg/dl (40-60); Magnesium 2.4 mg/dl (1.6-2.3); Triglycerides 173 mg/dl (30-150)
== END 2025-08-05 23:59 | disposition home or self-care (01) ==
LOC: RT 08:26
PROVIDERS: PCP Nurse Practitioner Family; Visit Provider Internal Medicine
DX: I11.0 Hypertensive heart disease with heart failure (principal); I50.30 Unspecified diastolic (congestive) heart failure; I25.10 Atherosclerotic heart disease of native coronary artery without angina pectoris; J44.9 Chronic obstructive pulmonary disease, unspecified; E78.2 Mixed hyperlipidemia; R94.31 Abnormal electrocardiogram [ECG] [EKG]
CPT/HCPCS: 36415; 80048; 80061; 80076; 83735; 85025; 93306